=== PATIENT | female | born 1940 | race Caucasian/White ===

== ENCOUNTER 2017-10-11 13:56 | Emergency (ER) | payer MEDICARE, BC ==
[2017-10-11] MEDS ORDERED: Ketorolac 30 MG/ML SDV IM ONE (14:30)
--- NOTE | 2017-10-11 14:30 | EDM.PDOC ---
ED HPI GENERAL MEDICAL PROBLEM - General Chief Complaint: Back Pain or Injury Stated Complaint: R SIDE SCIATIC PAIN Time Seen by Provider: 10/11/17 14:30 Source of Information: Reports: Patient - History of Present Illness INITIAL COMMENTS - FREE TEXT/NARRATIVE: HISTORY AND PHYSICAL: History of present illness: [ Patient has a history of sciatic distribution pain follow-up followed by Dr. Hopkins, pain has been present for as long as she can remember She generally treats with Tylenol and ibuprofen however this is not working at this time she rates pain 6 out of 10 low back radiating to the right buttock Dr. Singletary has sent her to neurology in [place] who is scheduled her for an epidural steroid injection her last MRI was within the last 3 months as well as plain film x-ray since then There is been no injury or trauma since she is just failing [id number] symptomatic therapies No fever nausea vomiting chills sweats no foot drop saddle anesthesia or bowel or urine symptoms] Review of systems: As per history of present illness and below otherwise all systems reviewed and negative. Past medical history: As per history of present illness and as reviewed below otherwise noncontributory. Surgical history: As per history of present illness and as reviewed below otherwise noncontributory. Social history: No reported history of drug or alcohol abuse. Family history: As per history of present illness and as reviewed below otherwise noncontributory. Physical exam: HEENT: Atraumatic, normocephalic, pupils reactive, negative for conjunctival pallor or scleral icterus, mucous membranes moist, throat clear, neck supple, nontender, trachea midline. Lungs: Clear to auscultation, breath sounds equal bilaterally, chest nontender. Heart: S1S2, regular, negative for clicks, rubs, or JVD. Abdomen: Soft, nondistended, nontender. Negative for masses or hepatosplenomegaly. Negative for costovertebral tenderness. Pelvis: Stable nontender. Genitourinary: Deferred. Rectal: Deferred. Extremities: Atraumatic, negative for cords or calf pain. Neurovascular unremarkable. Neuro: Awake, alert, oriented. Cranial nerves II through XII unremarkable. Cerebellum unremarkable. Motor and sensory unremarkable throughout. Exam nonfocal. No footdrop or saddle anesthesia Diagnostics: [Recent MRI and plain film imaging ] Therapeutics: [Toradol 30 IM Tramadol 50 mg by mouth 3 times a day when necessary #30 no refill ] Impression: [Sciatic distribution pain on right ]Scheduled for epidural steroid injection within one week in [place] Definitive disposition and diagnosis as appropriate pending reevaluation and review of above. Right Lower Back Pain Score (Numeric/FACES): 10 - Related Data Allergies Allergy/AdvReac Type Severity Reaction Status Date / Time codeine Allergy Hallucinati Verified 10/11/17 14:12 ons influenza virus vaccine, Allergy Syncope Verified 10/11/17 14:12 specific [Influenza Virus Vacc,Specific] Home Meds: Home Meds Albuterol Sulfate [Albuterol Sulfate HFA] 18 gm IH QID 01/01/14 [History] Carbidopa/Levodopa [Carbidopa-Levo ER 25-100] 1 each PO 01/01/14 [History] Lactobacillus Acidophilus [Probiotic] 1 tab PO DAILY 01/01/14 [History] Naproxen [Naprosyn] 125 mg PO DAILY 01/01/14 [History] Omeprazole 10 mg PO DAILY 01/01/14 [History] Verapamil [Verapamil SR (24 Hr)] 120 mg PO DAILY 01/01/14 [History] atorvaSTATin [Lipitor] 20 mg PO DAILY 01/01/14 [History] Past Medical History Cardiovascular History: Reports: High Cholesterol, Hypertension Respiratory History: Reports: Asthma Neurological History: Reports: Other (See Below) Other Neuro History: restless leg syndrome - Infectious Disease History Infectious Disease History: Reports: Chicken Pox, Measles, Mumps - Past Surgical History Female Surgical History: Reports: Section, Hysterectomy Social & Family History - Family History Family Medical History: Noncontributory - Tobacco Use Smoking Status *Q: Never Smoker Second Hand Smoke Exposure: No - Recreational Drug Use Recreational Drug Use: No ED ROS GENERAL - Review of Systems Review Of Systems: ROS reveals no pertinent complaints other than HPI. ED EXAM, GENERAL - Physical Exam Exam: See Below Course - Vital Signs Last Recorded V/S: Last Vital Signs Temp 97.5 F 10/11/17 14:09 Pulse 104 H 10/11/17 14:09 Resp 18 10/11/17 14:09 BP 117/83 10/11/17 14:09 Pulse Ox 94 L 10/11/17 14:09 - Orders/Labs/Meds Orders: Active Orders 24 hr Category Date Time Status Lumbar Spine 2 or 3V [CR] Stat Exams 10/11/17 14:23 Stop Req Meds: Medications Discontinued Medications Generic Name Dose Route Start Last Admin Trade Name Kt PRN Reason Stop Dose Admin Ketorolac Tromethamine 30 mg 10/11/17 14:30 10/11/17 14:41 Toradol IM 10/11/17 14:31 30 mg ONETIME ONE Administration Departure - Departure Time of Disposition: 14:46 Disposition: Home, Self-Care 01 Condition: Good Clinical Impression: Low back pain - Discharge Information Referrals: London Singletary MD [Primary Care Provider] - Forms: ED Department Discharge Additional Instructions: Follow with Dr. Singletary as needed Follow-up with your appointment for steroid injection Return if symptoms persist or worsen The following information is given to patients seen in the emergency department who are being discharged to home. This information is to outline your options for follow-up care. We provide all patients seen in our emergency department with a follow-up referral. The need for follow-up, as well as the timing and circumstances, are variable depending upon the specifics of your emergency department visit. If you don't have a primary care physician on staff, we will provide you with a referral. We always advise you to contact your personal physician following an emergency department visit to inform them of the circumstance of the visit and for follow-up with them and/or the need for any referrals to a consulting specialist. The emergency department will also refer you to a specialist when appropriate. This referral assures that you have the opportunity for follow-up care with a specialist. All of these measure are taken in an effort to provide you with optimal care, which includes your follow-up. Under all circumstances we always encourage you to contact your private physician who remains a resource for coordinating your care. When calling for follow-up care, please make the office aware that this follow-up is from your recent emergency room visit. If for any reason you are refused follow-up, please contact the [facility] emergency department at and asked to speak to the emergency department charge nurse. - My Orders Last 24 Hours: My Active Orders 10/11/17 14:23 Lumbar Spine 2 or 3V [CR] Stat - Assessment/Plan Last 24 Hours: My Active Orders 10/11/17 14:23 Lumbar Spine 2 or 3V [CR] Stat
== END 2017-10-11 15:23 | disposition home or self-care (01) ==
LOC: MW.ED 13:56
DX: M54.41 Lumbago with sciatica, right side (principal); E78.00 Pure hypercholesterolemia, unspecified; I10 Essential (primary) hypertension; J45.909 Unspecified asthma, uncomplicated; Z88.5 Allergy status to narcotic agent; Z88.7 Allergy status to serum and vaccine; Z79.899 Other long term (current) drug therapy
CPT/HCPCS: 96372; 99283; J1885

== ENCOUNTER 2018-02-18 12:23 | Emergency (ER) | payer MEDICARE, BC ==
[2018-02-18] MEDS ORDERED: Ketorolac 60 MG/2 ML SDV IM ONE (13:14)
--- NOTE | 2018-02-18 13:25 | EDM.PDOC ---
ED HPI GENERAL MEDICAL PROBLEM - General Chief Complaint: Back Pain or Injury Stated Complaint: PAIN Time Seen by Provider: 02/18/18 13:00 Source of Information: Reports: Patient History Limitations: Reports: No Limitations - History of Present Illness INITIAL COMMENTS - FREE TEXT/NARRATIVE: HISTORY AND PHYSICAL: History of present illness: [Presents to the ER w/ her granddaughter with complaints of R low back pain. This is a chronic complaint for her and she follows regularly w/ PCP regarding this complaint. She is prescribed tramadol by her PCP to take twice a day for her back pain. This has not been giving her enough relief and she has been taking it several times throughout the day. She is scheduled to run out of her medication before she can follow-up with PCP on Wednesday. She follows regularly with a back specialist in [place] and is hoping to have surgery to her lumbar spine in March. No recent MRIs studies have been completed. She had been following with a specialist who was going to do surgery in February but he recently moved away. Patient has no change in her pain as far as severity or location her main concern is that she will run out of medication. Tylenol and ibuprofen aren't effective.] Review of systems: As per history of present illness and below otherwise all systems reviewed and negative. Past medical history: As per history of present illness and as reviewed below otherwise noncontributory. Surgical history: As per history of present illness and as reviewed below otherwise noncontributory. Social history: No reported history of drug or alcohol abuse. Family history: As per history of present illness and as reviewed below otherwise noncontributory. Physical exam: Gen.: Well-developed well-nourished elderly female in no acute distress. Presents with her granddaughter. Appears to be a good historian. HEENT: Atraumatic, normocephalic. Lungs: Clear to auscultation. Heart: S1S2, regular. Abdomen: Soft, nondistended, nontender. Negative for masses or hepatosplenomegaly. Negative for costovertebral tenderness. Pelvis: Stable nontender. Genitourinary: Deferred. Rectal: Deferred. Back: Normal in appearance. She is tender over her right SI joint. No spinal tenderness with palpation and no step-offs. Extremities: Atraumatic, all range of motion to all extremities. Neurovascular unremarkable. Neuro: Awake, alert, oriented. Exam nonfocal. Therapeutics: [Toradol 60mg IM] Impression: [low back pain] Plan: [Rx written for tramadol 50 mg #20 sig one by mouth by mouth every 4-6 hours as needed for pain 0 refills. Toradol 60mg given IM in the ER. Follow-up with PCP on Wednesday as scheduled. Strict return precautions are reviewed with patient. She is in agreement with today's plan.] Definitive disposition and diagnosis as appropriate pending reevaluation and review of above. - Related Data Allergies Allergy/AdvReac Type Severity Reaction Status Date / Time codeine Allergy Hallucinati Verified 10/11/17 14:12 ons influenza virus vaccine, Allergy Syncope Verified 10/11/17 14:12 specific [Influenza Virus Vacc,Specific] Home Meds: Home Meds Carbidopa/Levodopa [Carbidopa-Levo ER 25-100] 1 tab PO DAILY 01/01/14 [History] Past Medical History Cardiovascular History: Reports: High Cholesterol, Hypertension Respiratory History: Reports: Asthma Neurological History: Reports: Other (See Below) Other Neuro History: restless leg syndrome Dermatologic History: Reports: Other (See Below) Other Dermatologic History: skin cancer nose - Infectious Disease History Infectious Disease History: Reports: Chicken Pox, Measles, Mumps - Past Surgical History Female Surgical History: Reports: Section, Hysterectomy Social & Family History - Family History Family Medical History: Noncontributory - Tobacco Use Smoking Status *Q: Never Smoker - Caffeine Use Caffeine Use: Reports: Soda - Recreational Drug Use Recreational Drug Use: No ED ROS GENERAL - Review of Systems Review Of Systems: ROS reveals no pertinent complaints other than HPI. ED EXAM,LOWER BACK PAIN/INJURY - Physical Exam Exam: See Below Course - Vital Signs Last Recorded V/S: Last Vital Signs Temp 96.9 F 02/18/18 12:54 Pulse 90 02/18/18 12:54 Resp 18 02/18/18 12:54 BP 131/74 02/18/18 12:54 Pulse Ox 95 02/18/18 12:54 - Orders/Labs/Meds Meds: Medications Discontinued Medications Generic Name Dose Route Start Last Admin Trade Name Freq PRN Reason Stop Dose Admin Ketorolac Tromethamine 60 mg 02/18/18 13:14 02/18/18 13:40 Toradol IM 02/18/18 13:15 60 mg ONETIME ONE Administration Departure - Departure Time of Disposition: 13:20 Disposition: Home, Self-Care 01 Condition: Good Clinical Impression: Low back pain - Discharge Information Instructions: Back Pain, Adult, [id number] Referrals: London Singletary MD [Primary Care Provider] - Forms: ED Department Discharge Additional Instructions: The following information is given to patients seen in the emergency department who are being discharged to home. This information is to outline your options for follow-up care. We provide all patients seen in our emergency department with a follow-up referral. The need for follow-up, as well as the timing and circumstances, are variable depending upon the specifics of your emergency department visit. If you don't have a primary care physician on staff, we will provide you with a referral. We always advise you to contact your personal physician following an emergency department visit to inform them of the circumstance of the visit and for follow-up with them and/or the need for any referrals to a consulting specialist. The emergency department will also refer you to a specialist when appropriate. This referral assures that you have the opportunity for follow-up care with a specialist. All of these measure are taken in an effort to provide you with optimal care, which includes your follow-up. Under all circumstances we always encourage you to contact your private physician who remains a resource for coordinating your care. When calling for follow-up care, please make the office aware that this follow-up is from your recent emergency room visit. If for any reason you are refused follow-up, please contact the [facility] emergency department at and asked to speak to the emergency department charge nurse. [address] [address] Follow-up with your local primary care provider on Wednesday that you have scheduled. Take medication as prescribed. Return to ER as needed as discussed.
== END 2018-02-18 14:00 | disposition home or self-care (01) ==
LOC: MW.ED 12:23
DX: M54.5 Low back pain (principal); E78.00 Pure hypercholesterolemia, unspecified; I10 Essential (primary) hypertension; J45.909 Unspecified asthma, uncomplicated; Z88.5 Allergy status to narcotic agent; Z88.7 Allergy status to serum and vaccine
CPT/HCPCS: 96372; 99283; J1885

== ENCOUNTER 2018-02-21 17:35 | Observation (INO) | payer OTHER, MEDICARE, BC ==
[2018-02-21] MEDS ORDERED: Sodium Chloride 0.9% 1,000 ML IV SCH (18:00)
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
[2018-02-21 19:37] LABS: CHLORIDE,CL 108 mmol/L (98-107); SODIUM,NA 141 mmol/L (136-145)
[2018-02-21] MEDS ORDERED: Morphine 2 MG/ML Syringe IVPUSH ONE (23:12)
[2018-02-21] MEDS ORDERED: Morphine 2 MG/ML Syringe ONE (23:13)
[2018-02-22] MEDS ORDERED: diphenhydrAMINE 50 MG/ML SDV IVPUSH PRN (00:10)
[2018-02-22] MEDS ORDERED: Sodium Chloride 0.9% 10 ML Syringe FLUSH PRN (00:10)
[2018-02-22] MEDS ORDERED: Sodium Chloride 0.9% 2.5 ML Syringe FLUSH PRN (00:10)
[2018-02-22] MEDS ORDERED: HYDROmorphone 2 MG/ML SDV IVPUSH PRN (00:10)
[2018-02-22] MEDS ORDERED: Acetaminophen 325 MG Tab PO PRN (00:10)
[2018-02-22] MEDS ORDERED: Cyclobenzaprine 5 MG Tab PO PRN (00:17)
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
[2018-02-22] MEDS ORDERED: Carbidopa/Levodopa 25-100 MG Tab PO ONE (00:36)
[2018-02-22] MEDS: Magnesium Chloride 64 MG Tab.ER PO SCH ×2 (00:56→08:27)
[2018-02-22] MEDS: Sodium Chloride 0.9% 1,000 ML IV SCH ×2 (01:02→11:31)
[2018-02-22] MEDS: Ciprofloxacin 500 MG Tab PO SCH ×3 (01:11→20:49)
[2018-02-22] MEDS: Ondansetron 4 MG/2 ML SDV IVPUSH PRN (01:15)
[2018-02-22] MEDS: oxyCODONE 5 MG Tab PO PRN ×4 (04:35→20:50)
[2018-02-22] MEDS ORDERED: HYDROmorphone 1 MG/ML Syringe IVPUSH PRN (07:30)
[2018-02-22] MEDS: Omeprazole 20 MG Cap.CR PO SCH (08:28)
[2018-02-22] MEDS ORDERED: Ciprofloxacin 500 MG Tab PO SCH (09:00)
[2018-02-22] MEDS ORDERED: Bacitracin Oint 1 GM U/D Packet TOP ONE (09:32)
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
[2018-02-22] MEDS: Carbidopa/Levodopa 25-100 MG Tab PO SCH ×2 (14:54→20:50)
[2018-02-22] MEDS ORDERED: oxyCODONE 5 MG Tab PO ONE (22:14)
[2018-02-22] MEDS ORDERED: Magnesium Chloride 64 MG Tab.ER PO SCH (22:30)
[2018-02-23] MEDS: oxyCODONE 5 MG Tab PO PRN (02:59)
[2018-02-23] MEDS: Sodium Chloride 0.9% 1,000 ML IV SCH (04:55)
[2018-02-23] MEDS: Ondansetron 4 MG/2 ML SDV IVPUSH PRN (04:59)
[2018-02-23] MEDS: Omeprazole 20 MG Cap.CR PO SCH (06:30)
[2018-02-23] MEDS ORDERED: Ketorolac 10 MG Tab PO PRN (07:48)
[2018-02-23] MEDS ORDERED: oxyCODONE 5 MG Tab PO PRN (08:11)
[2018-02-23] MEDS ORDERED: Morphine 2 MG/ML Syringe IVPUSH PRN (08:13)
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
[2018-02-23] MEDS ORDERED: Cyclobenzaprine 5 MG Tab PO SCH ×2 (09:00→14:00)
[2018-02-23] MEDS ORDERED: Bisacodyl 5 MG Tab PO SCH (09:00)
[2018-02-23] MEDS: Ciprofloxacin 500 MG Tab PO SCH (10:13)
[2018-02-23] MEDS ORDERED: Acetaminophen 325 MG Tab PO SCH (14:00)
[2018-02-23] MEDS ORDERED: Ketorolac 10 MG Tab PO SCH (14:00)
--- NOTE | 2018-02-23 17:22 | PCM.SN ---
- Free Text/Narrative Note: Patient had severe neck pain and muscles spasms this morning. She was started on scheduled flexeril, tylenol, and toradol. Her oxycodone dose was increased to 10mg q 4hr. She slept this afternoon and is feeling much better. She continues to have paraspinal tenderness but it is far less than it was this morning. She c/o trouble turning her head side to side. She denies paresthesias in her upper extremities or numbness. She has had no loss of motor function. Her vital signs are stable tonight. On physical exam there is no tenderness along the midline. She has paravertebral tenderness with palpation that is much improved from her exam this morning. Her musculature does not feel like it is in spasm. She can flex and extend without limitation or pain. With rotation of her head side to side she has tenderness and can turn to ~45 degrees on each side but it is painful. She has no neurologic defecitis. Sensation is equal bilaterally. She has no gross deficits in her gross and fine motor function of bilateral upper extremities. She had a cervical spine XR on admission. This was normal. Given her ongoing pain and limitation of rotation of the head, I am ordering a stat CT of the cervical spine to rule out any other injuries. She has no neurologic defecits at this time. Will follow up on these results to determine if she can go home tonight or not.
[2018-02-23] MEDS: Carbidopa/Levodopa 25-100 MG Tab PO SCH (17:26)
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
[2018-02-23] MEDS ORDERED: Magnesium Oxide 400 MG Tab PO SCH (20:00)
--- NOTE | 2018-02-24 07:58 | CT ---
EXAM DATE: 02/21/18 PATIENT'S AGE: 77 Patient: DAVE SLAUGHTER Facility: [place], [place] Site . Site : 1940 Study: CT Spine Cervical [id number]/13/2018 5:27:48 PM Ordering Physician: Stefania Clemente Final Report: Indication: Neck pain. Trauma Technique: Noncontrast axial CT of the cervical spine with coronal and sagittal reformats are provided. No comparisons. Findings: The overall stature, alignment of the cervical spine is within normal limits. No convincing evidence of suspicious bony fragments narrowing the central canal or neural foramina. Prevertebral soft tissues, cervical airway, dens and lateral masses are within normal limits. [id number] scattered degenerative changes of the cervical spine. Impression: 1. No convincing radiographic evidence of acute osseous injury. 2. [id number] scattered degenerative changes of the cervical spine. Dictated by Jordon Olmstead MD @ 02/23/2018 5:33:08 PM Please note that all CT scans at this facility use dose modulation, iterative reconstruction, and/or weight-based dosing when appropriate to reduce radiation dose to as low as reasonably achievable. Dictated by: Jordon Olmstead MD @ 02/23/2018 17:33:15 (Electronic Signature) Report Signed by Proxy. [facility] HEALTHDavid
== END 2018-02-23 19:45 | disposition home or self-care (01) ==
LOC: MW.ED 17:35 → MW.MS 18:00
PROVIDERS: ADMIT Surgery; ATTEND Surgery
DX: E27.9 Disorder of adrenal gland, unspecified (principal); S22.20XA Unspecified fracture of sternum, initial encounter for closed fracture; R74.8 Abnormal levels of other serum enzymes; M54.5 Low back pain; M54.2 Cervicalgia; M62.838 Other muscle spasm; I10 Essential (primary) hypertension; G25.81 Restless legs syndrome; E78.00 Pure hypercholesterolemia, unspecified; J45.909 Unspecified asthma, uncomplicated; Z79.899 Other long term (current) drug therapy; Z88.5 Allergy status to narcotic agent; Z88.7 Allergy status to serum and vaccine; V29.60XA Unspecified motorcycle rider injured in collision with unspecified motor vehicles in traffic accident, initial encounter; W22.10XA Striking against or struck by unspecified automobile airbag, initial encounter
CPT/HCPCS: 36415; 71046; 71250; 72040; 72125; 72170; 73090; 73590; 74018; 74176; 80048; 80053; 81001; 82150; 83690; 84484; 85018; 85025; 85027; 85610; 86850; 86870; 86900; 86901; 93005; 96361; 96374; 97161; 99285; A9270; G0390; J2270; J2405; J7040; 96375; 96376; 99284; G0378

== ENCOUNTER 2019-03-24 21:08 | Emergency (ER) | payer MEDICARE, BC ==
--- NOTE | 2019-03-24 21:43 | EDM.PDOC ---
ED HPI GENERAL MEDICAL PROBLEM - General Chief Complaint: Skin Complaint Stated Complaint: BUMP ON ARM Time Seen by Provider: 03/24/19 21:22 Source of Information: Reports: Patient History Limitations: Reports: No Limitations - History of Present Illness INITIAL COMMENTS - FREE TEXT/NARRATIVE: HISTORY AND PHYSICAL: History of present illness: Patient is a 78-year-old female who presents to the emergency room with a "bump " on her left arm. She states while getting ready for bed she had taken her blouse off and had noticed a raised bump to the left arm and was concerned it may have been an imbedded tick as it was dark in color. She does not recall hitting her injuring her arm. Patient denies any fever, chills, headache, change in vision, syncope or near syncope. Denies any chest pain, back pain, shortness of breath or cough. Denies any abdominal pain, nausea, vomiting, diarrhea, constipation or dysuria. Has not noted any blood in urine or stool. Patient has been eating and drinking appropriately. Review of systems: As per history of present illness and below otherwise all systems reviewed and negative. Past medical history: As per history of present illness and as reviewed below otherwise noncontributory. Surgical history: As per history of present illness and as reviewed below otherwise noncontributory. Social history: See social history for further information Family history: As per history of present illness and as reviewed below otherwise noncontributory. Physical exam: General: Well-developed and well-nourished 78-year-old female. Alert and oriented. Nontoxic appearing and in no acute distress. HEENT: Atraumatic, normocephalic, pupils equal and reactive bilaterally, negative for conjunctival pallor or scleral icterus, mucous membranes moist, trachea midline. No drooling or trismus noted. No meningeal signs. No hot potato voice noted. Lungs: Clear to auscultation, breath sounds equal bilaterally, chest nontender. Heart: S1S2, regular rate and rhythm without overt murmur Abdomen: Soft, nondistended, nontender. Skin: Sporadic small bruises noted to her hands and bilateral arms, various healing stages. Otherwise skin is intact, warm, dry. No lesions or rashes noted. Extremities: Atraumatic, moves all extremities per self without difficulty or deficits, negative for cords or calf pain. Neurovascular unremarkable. Neuro: Awake, alert, oriented. Cranial nerves II through XII unremarkable. Cerebellum unremarkable. Motor and sensory unremarkable throughout. Exam nonfocal. Notes: The area in question is a bruise above the left elbow. Did reassure the patient that there is no tick embedded in her skin. With reassurance she feels better. Supportive care measures were reviewed and discussed. Voices understanding and is agreeable to plan of care. Denies any further questions or concerns at this time. Diagnostics: None Therapeutics: None Prescription: None Impression: Bruise, left arm Plan: 1. Please follow up with your primary care provider 2. Return to the ED as needed and as discussed. Definitive disposition and diagnosis as appropriate pending reevaluation and review of above. denies pain Pain Score (Numeric/FACES): 0 - Related Data Allergies Allergy/AdvReac Type Severity Reaction Status Date / Time codeine Allergy Hallucinati Verified 03/24/19 21:43 ons influenza virus vaccine, Allergy Syncope Verified 03/24/19 21:43 specific [Influenza Virus Vacc,Specific] Home Meds: Home Meds Magnesium 400 mg PO BEDTIME 02/22/18 [History] Verapamil HCl [Verapamil Sr] 120 mg PO DAILY PRN 02/22/18 [History] Acetaminophen [Tylenol] 650 mg PO Q6H #30 tablet 02/23/18 [Rx] Bisacodyl [Dulcolax] 5 mg PO DAILY PRN #14 tablet 02/23/18 [Rx] Lactobacillus Acidophilus [Acidophilus Lactobacilli] 1 cap PO DAILY 02/23/18 [ History] Past Medical History Cardiovascular History: Reports: High Cholesterol, Hypertension Respiratory History: Reports: Asthma Musculoskeletal History: Reports: Other (See Below) Other Musculoskeletal History: sciatica Neurological History: Reports: Other (See Below) Other Neuro History: restless leg syndrome Dermatologic History: Reports: Other (See Below) Other Dermatologic History: skin cancer nose - Infectious Disease History Infectious Disease History: Reports: Chicken Pox, Measles, Mumps - Past Surgical History HEENT Surgical History: Reports: Other (See Below) Female Surgical History: Reports: Section, Hysterectomy Social & Family History - Family History Family Medical History: Noncontributory - Caffeine Use Caffeine Use: Reports: Soda ED ROS GENERAL - Review of Systems Review Of Systems: ROS reveals no pertinent complaints other than HPI. ED EXAM, SKIN/RASH Exam: See Below (See dictation) Course - Vital Signs Last Recorded V/S: Last Vital Signs Temp 97.6 F 03/24/19 21:43 Pulse 90 03/24/19 21:43 Resp 18 03/24/19 21:43 BP 123/78 03/24/19 21:43 Pulse Ox 95 03/24/19 21:43 Departure - Departure Time of Disposition: 21:48 Disposition: Home, Self-Care 01 Clinical Impression: Arm bruise Qualifiers: Encounter type: initial encounter Laterality: left Qualified Code(s): S40.022A - Contusion of left upper arm, initial encounter - Discharge Information Instructions: Contusion, [id number] Referrals: London Singletary MD [Primary Care Provider] - Forms: ED Department Discharge Additional Instructions: The following information is given to patients seen in the emergency department who are being discharged to home. This information is to outline your options for follow-up care. We provide all patients seen in our emergency department with a follow-up referral. The need for follow-up, as well as the timing and circumstances, are variable depending upon the specifics of your emergency department visit. If you don't have a primary care physician on staff, we will provide you with a referral. We always advise you to contact your personal physician following an emergency department visit to inform them of the circumstance of the visit and for follow-up with them and/or the need for any referrals to a consulting specialist. The emergency department will also refer you to a specialist when appropriate. This referral assures that you have the opportunity for follow-up care with a specialist. All of these measure are taken in an effort to provide you with optimal care, which includes your follow-up. Under all circumstances we always encourage you to contact your private physician who remains a resource for coordinating your care. When calling for follow-up care, please make the office aware that this follow-up is from your recent emergency room visit. If for any reason you are refused follow-up, please contact the [facility] Emergency Department at and asked to speak to the emergency department charge nurse. [facility] Primary Care [address] [place] [id number] [facility] [address] [place] [address] 1. Please follow up with your primary care provider 2. Return to the ED as needed and as discussed.
== END 2019-03-24 22:00 | disposition home or self-care (01) ==
LOC: MW.ED 21:08
DX: S40.022A Contusion of left upper arm, initial encounter (principal); I10 Essential (primary) hypertension; Z88.5 Allergy status to narcotic agent; Z88.7 Allergy status to serum and vaccine; Z79.899 Other long term (current) drug therapy; Z90.710 Acquired absence of both cervix and uterus; X58.XXXA Exposure to other specified factors, initial encounter
CPT/HCPCS: 99282; 99283

== ENCOUNTER 2019-06-21 09:28 | Emergency (ER) | payer MEDICARE, BC ==
[2019-06-21] MEDS ORDERED: Sodium Chloride 0.9% 10 ML Syringe FLUSH PRN (09:43)
[2019-06-21] MEDS ORDERED: Sodium Chloride 0.9% 2.5 ML Syringe FLUSH PRN (09:43)
[2019-06-21] MEDS ORDERED: Sodium Chloride 0.9% 500 ML IV ONE (09:43)
--- NOTE | 2019-06-21 09:44 | EDM.PDOC ---
ED HPI GENERAL MEDICAL PROBLEM - General Chief Complaint: General Stated Complaint: TRAUMA ALERT Time Seen by Provider: 06/21/19 09:36 Source of Information: Reports: Patient History Limitations: Reports: No Limitations - History of Present Illness INITIAL COMMENTS - FREE TEXT/NARRATIVE: History of present illness: []Patient got up and went to the bathroom and fell landing on her left shoulder. Brief loss of consciousness according to her who brought her in for evaluation. She arrived Awake and alert with complaint of right shoulder pain. Review of systems: As per history of present illness and below otherwise all systems reviewed and negative. Past medical history: As per history of present illness and as reviewed below otherwise noncontributory. Surgical history: As per history of present illness and as reviewed below otherwise noncontributory. Social history: No reported history of drug or alcohol abuse. Family history: As per history of present illness and as reviewed below otherwise noncontributory. Physical exam: General: Well developed, well nourished in NAD HEENT: Atraumatic, normocephalic, pupils reactive, negative for conjunctival pallor or scleral icterus, mucous membranes moist, throat clear, neck supple, nontender, trachea midline. Lungs: Clear to auscultation, breath sounds equal bilaterally, chest nontender. Heart: S1S2, regular, negative for clicks, rubs, or JVD. Abdomen: NABS, Soft, nondistended, nontender. Negative for masses or hepatosplenomegaly. Negative for costovertebral tenderness. Pelvis: Stable nontender. Genitourinary: Deferred. Rectal: Deferred. Extremities: tender left anterior shoulder, no deformity or limitation of movement, negative for cords or calf pain. Neurovascular unremarkable. Neuro: Awake, alert, oriented. Cranial nerves II through XII unremarkable. Cerebellum unremarkable. Motor and sensory unremarkable throughout. Exam nonfocal. Skin:warm and dry Diagnostics: CBC, chemistry, UA, right shoulder x-ray Therapeutics: toradol, ivf ED Course: stable Impression: uti, left shoulder contusion, vaso vagal response Prescriptions: nitrofurantoin Plan: Take meds as directed, follow up with your primary care physician, return to ER if symptoms worsen or change. Definitive disposition and diagnosis as appropriate pending reevaluation and review of above. Left Shoulder Pain Score (Numeric/FACES): 6 - Related Data Allergies Allergy/AdvReac Type Severity Reaction Status Date / Time codeine Allergy Hallucinati Verified 03/24/19 21:43 ons influenza virus vaccine, Allergy Syncope Verified 03/24/19 21:43 specific [Influenza Virus Vacc,Specific] Home Meds: Home Meds Magnesium 500 mg PO BEDTIME 02/22/18 [History] Verapamil HCl [Verapamil Sr] 120 mg PO DAILY PRN 02/22/18 [History] Carbidopa 25 mg PO ASDIRECTED 06/21/19 [History] Nitrofurantoin Macrocrystal [Macrodantin] 100 mg PO BID #14 capsule 06/21/19 [Rx ] Past Medical History HEENT History: Reports: None Cardiovascular History: Reports: High Cholesterol, Hypertension Respiratory History: Reports: Asthma Gastrointestinal History: Reports: None Genitourinary History: Reports: None [employer] History: Reports: Musculoskeletal History: Reports: Other (See Below) Other Musculoskeletal History: sciatica Neurological History: Reports: Other (See Below) Other Neuro History: restless leg syndrome Psychiatric History: Reports: None Endocrine/Metabolic History: Reports: None Hematologic History: Reports: None Immunologic History: Reports: None Oncologic (Cancer) History: Reports: None Dermatologic History: Reports: Other (See Below) Other Dermatologic History: skin cancer nose - Infectious Disease History Infectious Disease History: Reports: Chicken Pox, Measles, Mumps - Past Surgical History HEENT Surgical History: Reports: Other (See Below) Female Surgical History: Reports: Section, Hysterectomy Social & Family History - Family History Family Medical History: Noncontributory - Caffeine Use Caffeine Use: Reports: Soda ED ROS GENERAL - Review of Systems Review Of Systems: See Below ED EXAM, GENERAL - Physical Exam Exam: See Below Course - Vital Signs Last Recorded V/S: Last Vital Signs Temp 96.8 F 06/21/19 09:49 Pulse 85 06/21/19 09:49 Resp 18 06/21/19 09:49 BP 93/58 L 06/21/19 09:49 Pulse Ox 96 06/21/19 09:49 - Orders/Labs/Meds Orders: Active Orders 24 hr Category Date Time Status Blood Glucose Check, Bedside [RC] ONETIME Care 06/21/19 09:37 Active CULTURE URINE [RM] Routine Lab 06/21/19 10:45 Received Sodium Chloride 0.9% [Saline Flush] Med 06/21/19 09:43 Active 10 ml FLUSH ASDIRECTED PRN Sodium Chloride 0.9% [Saline Flush] Med 06/21/19 09:43 Active 2.5 ml FLUSH ASDIRECTED PRN Saline Lock Insert [OM.PC] Stat Oth 06/21/19 09:43 Ordered Medication Orders Sodium Chloride (Saline Flush) 10 ml FLUSH ASDIRECTED PRN PRN Reason: Keep Vein Open Last Admin: 06/21/19 10:08 Dose: 10 ml Sodium Chloride (Saline Flush) 2.5 ml FLUSH ASDIRECTED PRN PRN Reason: Keep Vein Open Last Admin: 06/21/19 10:08 Dose: 2.5 ml Labs: Laboratory Tests 06/21/19 06/21/19 06/21/19 Range/Units 10:04 10:05 10:05 WBC 5.39 (4.0-11.0) K/uL RBC 3.93 L (4.30-5.90) M/uL Hgb 11.9 L (12.0-16.0) g/dL Hct 37.2 (36.0-46.0) % MCV 94.7 (80.0-98.0) fL MCH 30.3 (27.0-32.0) pg MCHC 32.0 (31.0-37.0) g/dL RDW Std Deviation 47.1 (28.0-62.0) fl RDW Coeff of Bebeto 14 (11.0-15.0) % Plt Count 122 L (150-400) K/uL MPV 9.00 (7.40-12.00) fL Neut % (Auto) 75.7 (48.0-80.0) % Lymph % (Auto) 17.1 (16.0-40.0) % [place] % (Auto) 6.1 (0.0-15.0) % Eos % (Auto) 0.9 (0.0-7.0) % Baso % (Auto) 0.2 (0.0-1.5) % Neut # (Auto) 4.1 (1.4-5.7) K/uL Lymph # (Auto) 0.9 (0.6-2.4) K/uL [place] # (Auto) 0.3 (0.0-0.8) K/uL Eos # (Auto) 0.1 (0.0-0.7) K/uL Baso # (Auto) 0.0 (0.0-0.1) K/uL Nucleated RBC % 0.0 /100WBC Nucleated RBCs # 0 K/uL Sodium 144 (136-145) mmol/L Potassium 4.3 (3.5-5.1) mmol/L Chloride 110 H (98-107) mmol/L Carbon Dioxide 24.0 (21.0-32.0) mmol/L BUN 26 H (7.0-18.0) mg/dL Creatinine 1.2 H (0.6-1.0) mg/dL Est Cr Clr Drug Dosing TNP Estimated GFR (MDRD) 43.3 ml/min Glucose 140 H (74-106) mg/dL POC Glucose 134 H (60-110) mg/dL Calcium 8.8 (8.5-10.1) mg/dL Total Bilirubin 0.3 (0.2-1.0) mg/dL AST 19 (15-37) IU/L ALT 18 (14-63) IU/L Alkaline Phosphatase 84 (46-116) U/L Total Protein 6.5 (6.4-8.2) g/dL Albumin 3.4 (3.4-5.0) g/dL Globulin 3.1 (2.6-4.0) g/dL Albumin/Globulin Ratio 1.1 (0.9-1.6) Urine Color Urine Appearance Urine pH (5.0-8.0) Ur Specific [place] (1.001-1.035) Urine Protein (NEGATIVE) mg/dL Urine Glucose (UA) (NEGATIVE) mg/dL Urine Ketones (NEGATIVE) mg/dL Urine Occult Blood (NEGATIVE) Urine Nitrite (NEGATIVE) Urine Bilirubin (NEGATIVE) Urine Urobilinogen (<2.0) EU/dL Ur Leukocyte Esterase (NEGATIVE) Urine RBC (0-2/HPF) Urine WBC (0-5/HPF) Ur Epithelial Cells (NONE-FEW) Urine Bacteria (NEGATIVE) 06/21/19 Range/Units 10:45 WBC (4.0-11.0) K/uL RBC (4.30-5.90) M/uL Hgb (12.0-16.0) g/dL Hct (36.0-46.0) % MCV (80.0-98.0) fL MCH (27.0-32.0) pg MCHC (31.0-37.0) g/dL RDW Std Deviation (28.0-62.0) fl RDW Coeff of Bebeto (11.0-15.0) % Plt Count (150-400) K/uL MPV (7.40-12.00) fL Neut % (Auto) (48.0-80.0) % Lymph % (Auto) (16.0-40.0) % [place] % (Auto) (0.0-15.0) % Eos % (Auto) (0.0-7.0) % Baso % (Auto) (0.0-1.5) % Neut # (Auto) (1.4-5.7) K/uL Lymph # (Auto) (0.6-2.4) K/uL [place] # (Auto) (0.0-0.8) K/uL Eos # (Auto) (0.0-0.7) K/uL Baso # (Auto) (0.0-0.1) K/uL Nucleated RBC % /100WBC Nucleated RBCs # K/uL Sodium (136-145) mmol/L Potassium (3.5-5.1) mmol/L Chloride (98-107) mmol/L Carbon Dioxide (21.0-32.0) mmol/L BUN (7.0-18.0) mg/dL Creatinine (0.6-1.0) mg/dL Est Cr Clr Drug Dosing Estimated GFR (MDRD) ml/min Glucose (74-106) mg/dL POC Glucose (60-110) mg/dL Calcium (8.5-10.1) mg/dL Total Bilirubin (0.2-1.0) mg/dL AST (15-37) IU/L ALT (14-63) IU/L Alkaline Phosphatase (46-116) U/L Total Protein (6.4-8.2) g/dL Albumin (3.4-5.0) g/dL Globulin (2.6-4.0) g/dL Albumin/Globulin Ratio (0.9-1.6) Urine Color YELLOW Urine Appearance SLT CLOUDY Urine pH 5.5 (5.0-8.0) Ur Specific [place] 1.020 (1.001-1.035) Urine Protein NEGATIVE (NEGATIVE) mg/dL Urine Glucose (UA) NEGATIVE (NEGATIVE) mg/dL Urine Ketones NEGATIVE (NEGATIVE) mg/dL Urine Occult Blood NEGATIVE (NEGATIVE) Urine Nitrite POSITIVE H (NEGATIVE) Urine Bilirubin NEGATIVE (NEGATIVE) Urine Urobilinogen 0.2 (<2.0) EU/dL Ur Leukocyte Esterase NEGATIVE (NEGATIVE) Urine RBC 0-1 (0-2/HPF) Urine WBC 2-4 (0-5/HPF) Ur Epithelial Cells OCCASIONAL (NONE-FEW) Urine Bacteria 1+ H (NEGATIVE) Meds: Medications Generic Name Dose Route Start Last Admin Trade Name Freq PRN Reason Stop Dose Admin Sodium Chloride 10 ml 06/21/19 09:43 06/21/19 10:08 Saline Flush FLUSH 10 ml ASDIRECTED PRN Administration Keep Vein Open Sodium Chloride 2.5 ml 06/21/19 09:43 06/21/19 10:08 Saline Flush FLUSH 2.5 ml ASDIRECTED PRN Administration Keep Vein Open Discontinued Medications Generic Name Dose Route Start Last Admin Trade Name Freq PRN Reason Stop Dose Admin Sodium Chloride 500 mls @ 999 mls/hr 06/21/19 09:43 06/21/19 10:08 Normal Saline IV 06/21/19 10:13 999 mls/hr .Bolus ONE Administration Ketorolac Tromethamine 15 mg 06/21/19 10:27 06/21/19 11:10 Toradol IVPUSH 06/21/19 10:28 15 mg ONETIME ONE Administration Departure - Departure Time of Disposition: 11:17 Disposition: Home, Self-Care 01 Condition: Good Clinical Impression: Vaso vagal episode UTI (urinary tract infection) Qualifiers: Urinary tract infection type: site unspecified Hematuria presence: without hematuria Qualified Code(s): N39.0 - Urinary tract infection, site not specified Contusion of left shoulder Qualifiers: Encounter type: initial encounter Qualified Code(s): S40.012A - Contusion of left shoulder, initial encounter - Discharge Information *PRESCRIPTION DRUG MONITORING PROGRAM REVIEWED*: No *COPY OF PRESCRIPTION DRUG MONITORING REPORT IN PATIENT AL: No Prescriptions: Nitrofurantoin Macrocrystal [Macrodantin] 100 mg PO BID #14 capsule Instructions: Urinary Tract Infection, Adult, [id number], Near-Syncope, Easy- to-Read, Syncope, [id number] Referrals: London Singletary MD [Primary Care Provider] - Forms: ED Department Discharge Additional Instructions: The following information is given to patients seen in the emergency department who are being discharged to home. This information is to outline your options for follow-up care. We provide all patients seen in our emergency department with a follow-up referral. The need for follow-up, as well as the timing and circumstances, are variable depending upon the specifics of your emergency department visit. If you don't have a primary care physician on staff, we will provide you with a referral. We always advise you to contact your personal physician following an emergency department visit to inform them of the circumstance of the visit and for follow-up with them and/or the need for any referrals to a consulting specialist. The emergency department will also refer you to a specialist when appropriate. This referral assures that you have the opportunity for follow-up care with a specialist. All of these measure are taken in an effort to provide you with optimal care, which includes your follow-up. Under all circumstances we always encourage you to contact your private physician who remains a resource for coordinating your care. When calling for follow-up care, please make the office aware that this follow-up is from your recent emergency room visit. If for any reason you are refused follow-up, please contact the [facility] Emergency Department at and asked to speak to the emergency department charge nurse. Take meds as directed, follow up with your primary care physician, return to ER if symptoms worsen or change. [facility] [address] [place] [id number] - My Orders Last 24 Hours: My Active Orders 06/21/19 09:37 Blood Glucose Check, Bedside [RC] ONETIME 06/21/19 09:43 Sodium Chloride 0.9% [Saline Flush] 10 ml FLUSH ASDIRECTED PRN Sodium Chloride 0.9% [Saline Flush] 2.5 ml FLUSH ASDIRECTED PRN Saline Lock Insert [OM.PC] Stat 06/21/19 10:45 CULTURE URINE [RM] Routine - Assessment/Plan Last 24 Hours: My Active Orders 06/21/19 09:37 Blood Glucose Check, Bedside [RC] ONETIME 06/21/19 09:43 Sodium Chloride 0.9% [Saline Flush] 10 ml FLUSH ASDIRECTED PRN Sodium Chloride 0.9% [Saline Flush] 2.5 ml FLUSH ASDIRECTED PRN Saline Lock Insert [OM.PC] Stat 06/21/19 10:45 CULTURE URINE [RM] Routine
[2019-06-21] MEDS ORDERED: Ketorolac 30 MG/ML SDV IVPUSH ONE (10:27)
[2019-06-21 10:56] LABS: BLOOD UREA NITROGEN,BUN 26 mg/dL (7.0-18.0); CHLORIDE,CL 110 mmol/L (98-107); GLUCOSE RANDOM 140 mg/dL (74-106); POTASSIUM,K 4.3 mmol/L (3.5-5.1); SODIUM,NA 144 mmol/L (136-145)
--- NOTE | 2019-06-21 11:09 | CR ---
Indication: Pain. Technique: Left shoulder 3 views. Comparison: None Findings: No acute fracture or dislocation. No significant degenerative change of the glenohumeral joint. Mild degenerative change of the acromioclavicular joint. Visualized left lung is clear. Soft tissues are unremarkable. Impression: No acute findings. Dictated by Mena Martinez MD @ Jun 21 2019 11:06AM Signed by Dr. Mena Martinez @ Jun 21 2019 11:08AM
== END 2019-06-21 11:31 | disposition home or self-care (01) ==
LOC: MW.ED 09:28
DX: S40.012A Contusion of left shoulder, initial encounter (principal); R55 Syncope and collapse; N39.0 Urinary tract infection, site not specified; I10 Essential (primary) hypertension; Z88.5 Allergy status to narcotic agent; Z88.7 Allergy status to serum and vaccine; W19.XXXA Unspecified fall, initial encounter; Y92.89 Other specified places as the place of occurrence of the external cause
CPT/HCPCS: 73030; 80053; 81001; 82962; 85025; 87086; 96361; 96374; 99283; J1885; J7040; 87088; 87186

== ENCOUNTER 2019-06-29 09:05 | Observation (INO) | payer MEDICARE, BC ==
--- NOTE | 2019-06-29 09:17 | EDM.PDOC ---
ED HPI GENERAL MEDICAL PROBLEM - General Stated Complaint: DIZZINESS Time Seen by Provider: 06/29/19 09:13 - History of Present Illness INITIAL COMMENTS - FREE TEXT/NARRATIVE: HISTORY AND PHYSICAL: History of present illness: Patient is a 78-year-old white female who presents with a concern of intermittent dizziness she denies dizziness on arrival she states she had an episode earlier this morning upon awakening to go to the bathroom she denies fever chills nausea vomiting chest pain or other concern she states she has similar episode approximately 1-2 weeks prior for which she was treated for urinary tract infection. Review of systems: As per history of present illness and below otherwise all systems reviewed and negative. Past medical history: As per history of present illness and as reviewed below otherwise noncontributory. Surgical history: As per history of present illness and as reviewed below otherwise noncontributory. Social history: No reported history of drug or alcohol abuse. Family history: As per history of present illness and as reviewed below otherwise noncontributory. Physical exam: HEENT: Atraumatic, normocephalic, pupils reactive, negative for conjunctival pallor or scleral icterus, mucous membranes moist, throat clear, neck supple, nontender, trachea midline. Lungs: Clear to auscultation, breath sounds equal bilaterally, chest nontender. Heart: S1S2, regular, negative for clicks, rubs, or JVD. Abdomen: Soft, nondistended, nontender. Negative for masses or hepatosplenomegaly. Negative for costovertebral tenderness. Pelvis: Stable nontender. Genitourinary: Deferred. Rectal: Deferred. Extremities: Atraumatic, negative for cords or calf pain. Neurovascular unremarkable. Neuro: Awake, alert, oriented. Cranial nerves II through XII unremarkable. Cerebellum unremarkable. Motor and sensory unremarkable throughout. Exam nonfocal. Diagnostics: CBC CMP troponin PT/INR chest x-ray EKG CT brain UA Therapeutics: IV O2 monitor Impression: #1 dizziness Definitive disposition and diagnosis as appropriate pending reevaluation and review of above. - Related Data Allergies Allergy/AdvReac Type Severity Reaction Status Date / Time codeine Allergy Hallucinati Verified 03/24/19 21:43 ons influenza virus vaccine, Allergy Syncope Verified 03/24/19 21:43 specific [Influenza Virus Vacc,Specific] Home Meds: Home Meds Magnesium 500 mg PO BEDTIME 02/22/18 [History] Verapamil HCl [Verapamil Sr] 120 mg PO DAILY PRN 02/22/18 [History] Carbidopa 25 mg PO ASDIRECTED 06/21/19 [History] Nitrofurantoin Macrocrystal [Macrodantin] 100 mg PO BID #14 capsule 06/21/19 [Rx ] Past Medical History HEENT History: Reports: None Cardiovascular History: Reports: High Cholesterol, Hypertension Respiratory History: Reports: Asthma Gastrointestinal History: Reports: None Genitourinary History: Reports: 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: Musculoskeletal History: Reports: Other (See Below) Other Musculoskeletal History: sciatica Neurological History: Reports: Other (See Below) Other Neuro History: restless leg syndrome Psychiatric History: Reports: None Endocrine/Metabolic History: Reports: None Hematologic History: Reports: None Immunologic History: Reports: None Oncologic (Cancer) History: Reports: None Dermatologic History: Reports: Other (See Below) Other Dermatologic History: skin cancer nose - Infectious Disease History Infectious Disease History: Reports: Chicken Pox, Measles, Mumps - Past Surgical History HEENT Surgical History: Reports: Other (See Below) Female Surgical History: Reports: Section, Hysterectomy Social & Family History - Family History Family Medical History: Noncontributory - Caffeine Use Caffeine Use: Reports: Soda ED ROS GENERAL - Review of Systems Review Of Systems: ROS reveals no pertinent complaints other than HPI. ED EXAM, GENERAL - Physical Exam Exam: See Below (See dictation) Course - Vital Signs Last Recorded V/S: Last Vital Signs Temp 35.7 C 06/29/19 09:32 Pulse 94 06/29/19 09:32 Resp 16 06/29/19 09:32 BP 118/74 06/29/19 09:32 Pulse Ox 96 06/29/19 09:32 - Orders/Labs/Meds Orders: Active Orders 24 hr Category Date Time Status Cardiac Monitoring [RC] . DIRECTED Care 06/29/19 09:17 Active EKG Documentation Completion [RC] STAT Care 06/29/19 09:18 Active Pulse Oximetry [RC] ASDIRECTED Care 06/29/19 09:18 Active CULTURE BLOOD [BC] Stat Lab 06/29/19 10:48 Ordered CULTURE BLOOD [BC] Stat Lab 06/29/19 10:48 Ordered CULTURE URINE [RM] Stat Lab 06/29/19 10:25 Received LACTIC ACID,WHOLE BLOOD [BG] Stat Lab 06/29/19 10:48 Ordered Sodium Chloride 0.9% [Normal Saline] 500 ml Med 06/29/19 09:30 Active IV STAT Sodium Chloride 0.9% [Saline Flush] Med 06/29/19 09:18 Active 10 ml FLUSH ASDIRECTED PRN Sodium Chloride 0.9% [Saline Flush] Med 06/29/19 09:18 Active 2.5 ml FLUSH ASDIRECTED PRN cefTRIAXone [Rocephin in Dextrose,Iso-Osm 1 GM/50 ML] 1 Med 06/29/19 10:48 Active gm Premix Bag 1 bag IV ONETIME Blood Culture x2 Reflex Set [OM.PC] Stat Oth 06/29/19 10:48 Ordered Saline Lock Insert [OM.PC] Stat Oth 06/29/19 09:17 Ordered Medication Orders Sodium Chloride (Normal Saline) 500 mls @ 999 mls/hr IV STAT VITALY Last Admin: 06/29/19 09:39 Dose: 999 mls/hr Ceftriaxone Sodium/Dextrose 1 (gm/ Premix) 50 mls @ 100 mls/hr IV ONETIME ONE Stop: 06/29/19 11:17 Sodium Chloride (Saline Flush) 10 ml FLUSH ASDIRECTED PRN PRN Reason: Keep Vein Open Sodium Chloride (Saline Flush) 2.5 ml FLUSH ASDIRECTED PRN PRN Reason: Keep Vein Open Labs: Laboratory Tests 06/29/19 06/29/19 06/29/19 Range/Units 09:13 09:13 09:13 WBC 3.91 L (4.0-11.0) K/uL RBC 3.88 L (4.30-5.90) M/uL Hgb 11.6 L (12.0-16.0) g/dL Hct 36.6 (36.0-46.0) % MCV 94.3 (80.0-98.0) fL MCH 29.9 (27.0-32.0) pg MCHC 31.7 (31.0-37.0) g/dL RDW Std Deviation 47.2 (28.0-62.0) fl RDW Coeff of [place] 14 (11.0-15.0) % Plt Count 132 L (150-400) K/uL MPV 8.70 (7.40-12.00) fL Neut % (Auto) 69.5 (48.0-80.0) % Lymph % (Auto) 22.8 (16.0-40.0) % [place] % (Auto) 6.4 (0.0-15.0) % Eos % (Auto) 1.0 (0.0-7.0) % Baso % (Auto) 0.3 (0.0-1.5) % Neut # (Auto) 2.7 (1.4-5.7) K/uL Lymph # (Auto) 0.9 (0.6-2.4) K/uL [place] # (Auto) 0.3 (0.0-0.8) K/uL Eos # (Auto) 0.0 (0.0-0.7) K/uL Baso # (Auto) 0.0 (0.0-0.1) K/uL Nucleated RBC % 0.0 /100WBC Nucleated RBCs # 0 K/uL INR 1.02 Sodium 140 (136-145) mmol/L Potassium 3.9 (3.5-5.1) mmol/L Chloride 105 (98-107) mmol/L Carbon Dioxide 25.4 (21.0-32.0) mmol/L BUN 24 H (7.0-18.0) mg/dL Creatinine 1.2 H (0.6-1.0) mg/dL Est Cr Clr Drug Dosing 30.91 mL/min Estimated GFR (MDRD) 43.3 ml/min Glucose 120 H (74-106) mg/dL Calcium 8.8 (8.5-10.1) mg/dL Total Bilirubin 0.2 (0.2-1.0) mg/dL AST 20 (15-37) IU/L ALT 12 L (14-63) IU/L Alkaline Phosphatase 82 (46-116) U/L Troponin I < 0.050 (0.000-0.056) ng/mL Total Protein 6.4 (6.4-8.2) g/dL Albumin 3.3 L (3.4-5.0) g/dL Globulin 3.1 (2.6-4.0) g/dL Albumin/Globulin Ratio 1.1 (0.9-1.6) Urine Color Urine Appearance Urine pH (5.0-8.0) Ur Specific [place] (1.001-1.035) Urine Protein (NEGATIVE) mg/dL Urine Glucose (UA) (NEGATIVE) mg/dL Urine Ketones (NEGATIVE) mg/dL Urine Occult Blood (NEGATIVE) Urine Nitrite (NEGATIVE) Urine Bilirubin (NEGATIVE) Urine Urobilinogen (<2.0) EU/dL Ur Leukocyte Esterase (NEGATIVE) Urine RBC (0-2/HPF) Urine WBC (0-5/HPF) Ur Epithelial Cells (NONE-FEW) Urine Bacteria (NEGATIVE) 06/29/19 Range/Units 10:25 WBC (4.0-11.0) K/uL RBC (4.30-5.90) M/uL Hgb (12.0-16.0) g/dL Hct (36.0-46.0) % MCV (80.0-98.0) fL MCH (27.0-32.0) pg MCHC (31.0-37.0) g/dL RDW Std Deviation (28.0-62.0) fl RDW Coeff of [place] (11.0-15.0) % Plt Count (150-400) K/uL MPV (7.40-12.00) fL Neut % (Auto) (48.0-80.0) % Lymph % (Auto) (16.0-40.0) % [place] % (Auto) (0.0-15.0) % Eos % (Auto) (0.0-7.0) % Baso % (Auto) (0.0-1.5) % Neut # (Auto) (1.4-5.7) K/uL Lymph # (Auto) (0.6-2.4) K/uL [place] # (Auto) (0.0-0.8) K/uL Eos # (Auto) (0.0-0.7) K/uL Baso # (Auto) (0.0-0.1) K/uL Nucleated RBC % /100WBC Nucleated RBCs # K/uL INR Sodium (136-145) mmol/L Potassium (3.5-5.1) mmol/L Chloride (98-107) mmol/L Carbon Dioxide (21.0-32.0) mmol/L BUN (7.0-18.0) mg/dL Creatinine (0.6-1.0) mg/dL Est Cr Clr Drug Dosing mL/min Estimated GFR (MDRD) ml/min Glucose (74-106) mg/dL Calcium (8.5-10.1) mg/dL Total Bilirubin (0.2-1.0) mg/dL AST (15-37) IU/L ALT (14-63) IU/L Alkaline Phosphatase (46-116) U/L Troponin I (0.000-0.056) ng/mL Total Protein (6.4-8.2) g/dL Albumin (3.4-5.0) g/dL Globulin (2.6-4.0) g/dL Albumin/Globulin Ratio (0.9-1.6) Urine Color YELLOW Urine Appearance CLEAR Urine pH 7.0 (5.0-8.0) Ur Specific [place] 1.010 (1.001-1.035) Urine Protein NEGATIVE (NEGATIVE) mg/dL Urine Glucose (UA) NEGATIVE (NEGATIVE) mg/dL Urine Ketones NEGATIVE (NEGATIVE) mg/dL Urine Occult Blood NEGATIVE (NEGATIVE) Urine Nitrite POSITIVE H (NEGATIVE) Urine Bilirubin NEGATIVE (NEGATIVE) Urine Urobilinogen 0.2 (<2.0) EU/dL Ur Leukocyte Esterase TRACE H (NEGATIVE) Urine RBC 0-2 (0-2/HPF) Urine WBC 1-5 (0-5/HPF) Ur Epithelial Cells OCCASIONAL (NONE-FEW) Urine Bacteria 3+ H (NEGATIVE) Meds: Medications Generic Name Dose Route Start Last Admin Trade Name Freq PRN Reason Stop Dose Admin Sodium Chloride 500 mls @ 999 mls/hr 06/29/19 09:30 06/29/19 09:39 Normal Saline IV 999 mls/hr STAT VITALY Administration Ceftriaxone Sodium/Dextrose 1 50 mls @ 100 mls/hr 06/29/19 10:48 gm/ Premix IV 06/29/19 11:17 ONETIME ONE Sodium Chloride 10 ml 06/29/19 09:18 Saline Flush FLUSH ASDIRECTED PRN Keep Vein Open Sodium Chloride 2.5 ml 06/29/19 09:18 Saline Flush FLUSH ASDIRECTED PRN Keep Vein Open Departure - Departure Time of Disposition: 10:49 Disposition: Refer to Observation Condition: Good Clinical Impression: Dizziness UTI (urinary tract infection) Qualifiers: Urinary tract infection type: site unspecified Hematuria presence: without hematuria Qualified Code(s): N39.0 - Urinary tract infection, site not specified - Discharge Information Referrals: London Singletary MD [Primary Care Provider] - - My Orders Last 24 Hours: My Active Orders 06/29/19 09:17 Cardiac Monitoring [RC] . DIRECTED Saline Lock Insert [OM.PC] Stat 06/29/19 09:18 EKG Documentation Completion [RC] STAT Pulse Oximetry [RC] ASDIRECTED Sodium Chloride 0.9% [Saline Flush] 10 ml FLUSH ASDIRECTED PRN Sodium Chloride 0.9% [Saline Flush] 2.5 ml FLUSH ASDIRECTED PRN 06/29/19 09:30 Sodium Chloride 0.9% [Normal Saline] 500 ml IV STAT 06/29/19 10:25 CULTURE URINE [RM] Stat 06/29/19 10:48 CULTURE BLOOD [BC] Stat CULTURE BLOOD [BC] Stat LACTIC ACID,WHOLE BLOOD [BG] Stat cefTRIAXone [Rocephin in Dextrose,Iso-Osm 1 GM/50 ML] 1 gm Premix Bag 1 bag IV ONETIME Blood Culture x2 Reflex Set [OM.PC] Stat - Assessment/Plan Last 24 Hours: My Active Orders 06/29/19 09:17 Cardiac Monitoring [RC] . DIRECTED Saline Lock Insert [OM.PC] Stat 06/29/19 09:18 EKG Documentation Completion [RC] STAT Pulse Oximetry [RC] ASDIRECTED Sodium Chloride 0.9% [Saline Flush] 10 ml FLUSH ASDIRECTED PRN Sodium Chloride 0.9% [Saline Flush] 2.5 ml FLUSH ASDIRECTED PRN 06/29/19 09:30 Sodium Chloride 0.9% [Normal Saline] 500 ml IV STAT 06/29/19 10:25 CULTURE URINE [RM] Stat 06/29/19 10:48 CULTURE BLOOD [BC] Stat CULTURE BLOOD [BC] Stat LACTIC ACID,WHOLE BLOOD [BG] Stat cefTRIAXone [Rocephin in Dextrose,Iso-Osm 1 GM/50 ML] 1 gm Premix Bag 1 bag IV ONETIME Blood Culture x2 Reflex Set [OM.PC] Stat
[2019-06-29] MEDS ORDERED: Sodium Chloride 0.9% 2.5 ML Syringe FLUSH PRN (09:18)
[2019-06-29] MEDS ORDERED: Sodium Chloride 0.9% 10 ML Syringe FLUSH PRN (09:18)
[2019-06-29] MEDS ORDERED: Sodium Chloride 0.9% 500 ML IV SCH (09:30)
[2019-06-29 10:05] LABS: BLOOD UREA NITROGEN,BUN 24 mg/dL (7.0-18.0); CARBON DIOXIDE,CO2 25.4 mmol/L (21.0-32.0); CHLORIDE,CL 105 mmol/L (98-107); GLUCOSE RANDOM 120 mg/dL (74-106); POTASSIUM,K 3.9 mmol/L (3.5-5.1); SODIUM,NA 140 mmol/L (136-145)
--- NOTE | 2019-06-29 10:18 | CR ---
INDICATION: Chest pain; shortness of breath. COMPARISON: Two-view chest February 21, 2018. TECHNIQUE: Portable AP chest. FINDINGS: Normal size cardiac silhouette . Clear lung silva with no evidence of acute pneumonic infiltrates or CHF. No pneumothorax or pleural effusion. Prominent descending thoracic aorta; stable when compared to February 21, 2018. IMPRESSION: No acute pathology. Dictated by Kori Browning MD @ Jun 29 2019 10:15AM Signed by Dr. Kori Browning @ Jun 29 2019 10:17AM
--- NOTE | 2019-06-29 10:37 | CT ---
INDICATION: Pt w/dizziness. INDICATION: Dizziness. TECHNIQUE: Head CT without contrast. Coronal/sagittal reconstruction images. COMPARISON: None FINDINGS: CSF spaces: Mild cerebral and cerebellar volume loss, which is not out of proportion to the patient`s age. Brain parenchyma: There are nonspecific low attenuation white matter changes consistent with chronic microvascular disease. No sign of mass, hemorrhage, or midline shift. Skull base and calvarium: The visualized mastoid air cells are clear. The visualized orbits are grossly unremarkable. No skull fractures. There is intracranial atherosclerosis. Minimal debris in the ethmoidal air cells, image 10, series 202. IMPRESSION: 1. No acute intracranial hemorrhage, shift of midline structures, or mass effect. 2. No hyperdense MCA sign. 3. Volume loss/small vessel ischemic changes. These are age appropriate. Dictated by Jluis Lisa MD @ 06/29/2019 10:36:31 AM Please note that all CT scans at this facility use dose modulation, iterative reconstruction, and/or weight-based dosing when appropriate to reduce radiation dose to as low as reasonably achievable. Dictated by: Jluis Lisa MD @ 06/29/2019 10:37:06 (Electronically Signed)
[2019-06-29] MEDS ORDERED: cefTRIAXone 1 GM in Premix Bag 1 BAG IV ONE (10:48)
[2019-06-29] MEDS ORDERED: Acetaminophen 325 MG Tab PO PRN (12:41)
[2019-06-29] MEDS ORDERED: Ondansetron 4 MG/2 ML SDV IVPUSH PRN (12:41)
--- NOTE | 2019-06-29 12:44 | PCM.HP.2 ---
H&P History of Present Illness - General Date of Service: 06/29/19 Admit Problem/Dx: Admission Diagnosis/Problem Admission Diagnosis/Problem UTI, Urinary tract infectious disease Source of Information: Patient History Limitations: Reports: No Limitations - History of Present Illness Initial Comments - Free Text/Narative: This 78 year old female with pmh of restless leg syndrome and recent diagnosis of UTI presented to the ED today with concerns of dizziness. She reports she woke up this morning and got out of bed and immediately felt dizzy. She reports she sat down and it continued with only mild relief. She felt she should be evaluated. She reports she was recently diagnosed with UTI and Treated with Macrobid. She reports having mild urinary pain and frequency with urgency. She denies fevers or chills. She reports eating and drinking ok. No chest pain or SOB. No abdominal pain. Scant diarrhea this morning, but she doesn't feel concerned with it. She is feeling better now. She denies tobacco use and no alcohol use. In the ED Labwork WNL, lactact 1.5, BUN 24, Cr 1.2. Troponin neagtrive. Head CT negative. CXr negative. UA reveals +3 bacteria, WBC 1-5, leukocyte esterase, and positive nitrites. She was treated with IVF and Rocephin. Admitted observation for UTI and dizziness. PCP, Dr Singletary. - Related Data Allergies/Adverse Reactions: Allergies Allergy/AdvReac Type Severity Reaction Status Date / Time codeine Allergy Hallucinati Verified 06/29/19 11:46 ons influenza virus vaccine, Allergy Syncope Verified 06/29/19 11:46 specific [Influenza Virus Vacc,Specific] Home Medications: Home Meds Magnesium 500 mg PO BEDTIME 02/22/18 [History] Verapamil HCl [Verapamil Sr] 120 mg PO DAILY PRN 02/22/18 [History] Carbidopa/Levodopa [Carbidopa-Levodopa 25-100 Tab] 25 - 100 mg PO BID@16,21 [History] Gabapentin [Neurontin] 100 mg PO BEDTIME 06/29/19 [History] Ibuprofen [Advil] 200 mg PO . NEEDED PRN 06/29/19 [History] Omeprazole 20 mg PO DAILY 06/29/19 [History] Past Medical History HEENT History: Reports: None Cardiovascular History: Reports: High Cholesterol, Hypertension Respiratory History: Reports: Asthma Gastrointestinal History: Reports: None. Denies: GERD Genitourinary History: Reports: None [employer] ATT[employer] History: Reports: Musculoskeletal History: Reports: Other (See Below) Other Musculoskeletal History: sciatica Neurological History: Reports: Other (See Below) Other Neuro History: restless leg syndrome Psychiatric History: Reports: None Endocrine/Metabolic History: Reports: None. Denies: Diabetes, Type II, Hypothyroidism Hematologic History: Reports: None Immunologic History: Reports: None Oncologic (Cancer) History: Reports: None Dermatologic History: Reports: Other (See Below) Other Dermatologic History: skin cancer nose - Infectious Disease History Infectious Disease History: Reports: Chicken Pox, Measles, Mumps - Past Surgical History Head Surgeries/Procedures: Reports: None HEENT Surgical History: Reports: Other (See Below) Female Surgical History: Reports: Section, Hysterectomy Social & Family History - Family History Family Medical History: Noncontributory - Tobacco Use Smoking Status *Q: Former Smoker Used Tobacco, but Quit: Yes Month/Year Tobacco Last Used: 1978 Second Hand Smoke Exposure: No - Caffeine Use Caffeine Use: Reports: None, Soda - Alcohol Use Alcohol Use History: No - Recreational Drug Use Recreational Drug Use: No - Living Situation & Occupation Living situation: Reports: Occupation: Retired H&P Review of Systems - Review of Systems: Review Of Systems: See Below General: Reports: No Symptoms. Denies: Fever, Chills, Malaise, Weakness HEENT: Reports: Vertigo (gone since arrival to ED.). Denies: Headaches, Sinus Congestion Pulmonary: Reports: No Symptoms. Denies: Shortness of Breath Cardiovascular: Reports: No Symptoms. Denies: Chest Pain Gastrointestinal: Reports: No Symptoms. Denies: Abdominal Pain, Black Stool, Bloody Stool, Nausea, Vomiting Genitourinary: Reports: No Symptoms. Denies: Dysuria, Frequency, Burning Musculoskeletal: Reports: No Symptoms. Denies: Neck Pain, Back Pain Skin: Reports: No Symptoms Psychiatric: Reports: No Symptoms Neurological: Reports: No Symptoms Hematologic/Lymphatic: Reports: No Symptoms Immunologic: Reports: No Symptoms Exam - Exam Exam: See Below - Vital Signs Vital Signs: Last Vital Signs Temp 97.4 F 06/29/19 12:13 Pulse 85 06/29/19 12:13 Resp 18 06/29/19 12:13 BP 108/61 06/29/19 12:13 Pulse Ox 96 06/29/19 12:18 Weight: 56.2 kg - Exam General: Alert, Oriented, Cooperative HEENT: Conjunctiva Clear, Mucosa Moist & [place], Posterior Pharynx Clear Lungs: Clear to Auscultation, Normal Respiratory Effort Cardiovascular: Regular Rate, Regular Rhythm, Normal S1, Normal S2 GI/Abdominal Exam: Normal Bowel Sounds, Soft, Non-Tender Back Exam: Normal Inspection, Full Range of Motion Extremities: Normal Inspection, Normal Range of Motion, Non-Tender, No Pedal Edema Neuro Extensive - Mental Status: Alert, Oriented x3 Neuro Extensive - Motor, Sensory, Reflexes: CN II-XII Intact Psychiatric: Alert, Normal Affect, Normal Mood - Patient Data Lab Results Last 24 hrs: Laboratory Results - last 24 hr 06/29/19 06/29/19 06/29/19 Range/Units 09:13 09:13 09:13 WBC 3.91 L (4.0-11.0) K/uL RBC 3.88 L (4.30-5.90) M/uL Hgb 11.6 L (12.0-16.0) g/dL Hct 36.6 (36.0-46.0) % MCV 94.3 (80.0-98.0) fL MCH 29.9 (27.0-32.0) pg MCHC 31.7 (31.0-37.0) g/dL RDW Std Deviation 47.2 (28.0-62.0) fl RDW Coeff of Bebeto 14 (11.0-15.0) % Plt Count 132 L (150-400) K/uL MPV 8.70 (7.40-12.00) fL Neut % (Auto) 69.5 (48.0-80.0) % Lymph % (Auto) 22.8 (16.0-40.0) % [place] % (Auto) 6.4 (0.0-15.0) % Eos % (Auto) 1.0 (0.0-7.0) % Baso % (Auto) 0.3 (0.0-1.5) % Neut # (Auto) 2.7 (1.4-5.7) K/uL Lymph # (Auto) 0.9 (0.6-2.4) K/uL [place] # (Auto) 0.3 (0.0-0.8) K/uL Eos # (Auto) 0.0 (0.0-0.7) K/uL Baso # (Auto) 0.0 (0.0-0.1) K/uL Nucleated RBC % 0.0 /100WBC Nucleated RBCs # 0 K/uL INR 1.02 Lactate (0.20-2.00) mmol/L Sodium 140 (136-145) mmol/L Potassium 3.9 (3.5-5.1) mmol/L Chloride 105 (98-107) mmol/L Carbon Dioxide 25.4 (21.0-32.0) mmol/L BUN 24 H (7.0-18.0) mg/dL Creatinine 1.2 H (0.6-1.0) mg/dL Est Cr Clr Drug Dosing 30.91 mL/min Estimated GFR (MDRD) 43.3 ml/min Glucose 120 H (74-106) mg/dL Calcium 8.8 (8.5-10.1) mg/dL Total Bilirubin 0.2 (0.2-1.0) mg/dL AST 20 (15-37) IU/L ALT 12 L (14-63) IU/L Alkaline Phosphatase 82 (46-116) U/L Troponin I < 0.050 (0.000-0.056) ng/mL Total Protein 6.4 (6.4-8.2) g/dL Albumin 3.3 L (3.4-5.0) g/dL Globulin 3.1 (2.6-4.0) g/dL Albumin/Globulin Ratio 1.1 (0.9-1.6) Urine Color Urine Appearance Urine pH (5.0-8.0) Ur Specific [place] (1.001-1.035) Urine Protein (NEGATIVE) mg/dL Urine Glucose (UA) (NEGATIVE) mg/dL Urine Ketones (NEGATIVE) mg/dL Urine Occult Blood (NEGATIVE) Urine Nitrite (NEGATIVE) Urine Bilirubin (NEGATIVE) Urine Urobilinogen (<2.0) EU/dL Ur Leukocyte Esterase (NEGATIVE) Urine RBC (0-2/HPF) Urine WBC (0-5/HPF) Ur Epithelial Cells (NONE-FEW) Urine Bacteria (NEGATIVE) 06/29/19 06/29/19 Range/Units 10:25 11:27 WBC (4.0-11.0) K/uL RBC (4.30-5.90) M/uL Hgb (12.0-16.0) g/dL Hct (36.0-46.0) % MCV (80.0-98.0) fL MCH (27.0-32.0) pg MCHC (31.0-37.0) g/dL RDW Std Deviation (28.0-62.0) fl RDW Coeff of Bebeto (11.0-15.0) % Plt Count (150-400) K/uL MPV (7.40-12.00) fL Neut % (Auto) (48.0-80.0) % Lymph % (Auto) (16.0-40.0) % [place] % (Auto) (0.0-15.0) % Eos % (Auto) (0.0-7.0) % Baso % (Auto) (0.0-1.5) % Neut # (Auto) (1.4-5.7) K/uL Lymph # (Auto) (0.6-2.4) K/uL [place] # (Auto) (0.0-0.8) K/uL Eos # (Auto) (0.0-0.7) K/uL Baso # (Auto) (0.0-0.1) K/uL Nucleated RBC % /100WBC Nucleated RBCs # K/uL INR Lactate 1.5 (0.20-2.00) mmol/L Sodium (136-145) mmol/L Potassium (3.5-5.1) mmol/L Chloride (98-107) mmol/L Carbon Dioxide (21.0-32.0) mmol/L BUN (7.0-18.0) mg/dL Creatinine (0.6-1.0) mg/dL Est Cr Clr Drug Dosing mL/min Estimated GFR (MDRD) ml/min Glucose (74-106) mg/dL Calcium (8.5-10.1) mg/dL Total Bilirubin (0.2-1.0) mg/dL AST (15-37) IU/L ALT (14-63) IU/L Alkaline Phosphatase (46-116) U/L Troponin I (0.000-0.056) ng/mL Total Protein (6.4-8.2) g/dL Albumin (3.4-5.0) g/dL Globulin (2.6-4.0) g/dL Albumin/Globulin Ratio (0.9-1.6) Urine Color YELLOW Urine Appearance CLEAR Urine pH 7.0 (5.0-8.0) Ur Specific [place] 1.010 (1.001-1.035) Urine Protein NEGATIVE (NEGATIVE) mg/dL Urine Glucose (UA) NEGATIVE (NEGATIVE) mg/dL Urine Ketones NEGATIVE (NEGATIVE) mg/dL Urine Occult Blood NEGATIVE (NEGATIVE) Urine Nitrite POSITIVE H (NEGATIVE) Urine Bilirubin NEGATIVE (NEGATIVE) Urine Urobilinogen 0.2 (<2.0) EU/dL Ur Leukocyte Esterase TRACE H (NEGATIVE) Urine RBC 0-2 (0-2/HPF) Urine WBC 1-5 (0-5/HPF) Ur Epithelial Cells OCCASIONAL (NONE-FEW) Urine Bacteria 3+ H (NEGATIVE) Result Diagrams: 06/29/19 09:13 06/29/19 09:13 Esa Results Last 24 hrs: Microbiology 06/29/19 11:17 Anaerobic Blood Culture - Final Blood - Venous *Q Meaningful Use (ADM) - VTE *Q VTE Mechanical Contraindications *Q: At Risk for Falls - VTE Risk Assess *Q Each Risk Factor Represents 1 Point: None Total Score 1 Point Risk Factors: 0 Each Risk Factor Represents 2 Points: None Total Score 2 Point Risk Factors: 0 Each Risk Factor Represents 3 Points: Age 75 Years or Greater Total Score 3 Point Risk Factors: 3 Each Risk Factor Represents 5 Points: None Total Score 5 Point Risk Factors: 0 Venous Thromboembolism Risk Factor Score *Q: 3 - Problem List (1) UTI (urinary tract infection) SNOMED Code(s): 16404233 ICD Code: N39.0 - URINARY TRACT INFECTION, SITE NOT SPECIFIED Status: Acute Current Visit: Yes Qualifiers: Urinary tract infection type: site unspecified Hematuria presence: without hematuria Qualified Code(s): N39.0 - Urinary tract infection, site not specified (2) Dizziness SNOMED Code(s): 492034126, 357190209 ICD Code: R42 - DIZZINESS AND GIDDINESS Status: Acute Current Visit: Yes (3) Restless leg syndrome SNOMED Code(s): 72310523 ICD Code: G25.81 - RESTLESS LEGS SYNDROME Status: Chronic Current Visit: Yes Problem List Initiated/Reviewed/Updated: Yes Orders Last 24hrs: Active Orders 24 hr Category Date Time Status Patient Status [ADT] Stat ADT 06/29/19 10:50 Active Cardiac Monitoring [RC] . DIRECTED Care 06/29/19 09:17 Active EKG Documentation Completion [RC] STAT Care 06/29/19 09:18 Active Intake and Output [RC] QSHIFT Care 06/29/19 12:42 Ordered Orthostatic Vital Signs [RC] ASDIRECTED Care 06/29/19 12:42 Ordered Oxygen Therapy [RC] PRN Care 06/29/19 12:41 Ordered Pulse Oximetry [RC] ASDIRECTED Care 06/29/19 09:18 Active Up With Assistance [RC] ASDIRECTED Care 06/29/19 12:41 Ordered VTE/DVT Education [RC] PER UNIT ROUTINE Care 06/29/19 12:41 Ordered Vital Signs [RC] Q4H Care 06/29/19 12:41 Ordered Regular Diet [DIET] Diet 06/29/19 Lunch Ordered CULTURE BLOOD [BC] Stat Lab 06/29/19 11:17 Results CULTURE BLOOD [BC] Stat Lab 06/29/19 11:27 Received CULTURE URINE [RM] Stat Lab 06/29/19 10:25 Received Acetaminophen [Tylenol] Med 06/29/19 12:41 Ordered 650 mg PO Q4H PRN Ondansetron [Zofran] Med 06/29/19 12:41 Ordered 4 mg IVPUSH Q4H PRN Sodium Chloride 0.9% @ 50 MLS/HR(1,000ml) Med 06/29/19 12:45 Ordered Sodium Chloride 0.9% [Normal Saline] 1,000 ml IV ASDIRECTED Sodium Chloride 0.9% [Saline Flush] Med 06/29/19 09:18 Active 10 ml FLUSH ASDIRECTED PRN Sodium Chloride 0.9% [Saline Flush] Med 06/29/19 09:18 Active 2.5 ml FLUSH ASDIRECTED PRN Blood Culture x2 Reflex Set [OM.PC] Stat Oth 06/29/19 10:48 Ordered Saline Lock Insert [OM.PC] Stat Oth 06/29/19 09:17 Ordered Medication Orders Acetaminophen (Tylenol) 650 mg PO Q4H PRN PRN Reason: Pain (mild 1-3) Ondansetron HCl (Zofran) 4 mg IVPUSH Q4H PRN PRN Reason: Nausea Sodium Chloride (Saline Flush) 10 ml FLUSH ASDIRECTED PRN PRN Reason: Keep Vein Open Sodium Chloride (Saline Flush) 2.5 ml FLUSH ASDIRECTED PRN PRN Reason: Keep Vein Open Assessment/Plan Comment:: This 78 year old female admitted with UTI and dizziness 1. UTI: UC pending. Rocephin. Will monitor. 2. Dizziness: Orthostatic VS reveal orthostatic hypotension with some dizziness. Hold Carbidopa for now. Start IVFs, NS 100 monitor in morning. 3. Restless leg syndrome: Carbidopa due to orthostatic hypotension. VTE prophylaxis: SCD ambulation Dispo: 1 day - Mortality Measure Prognosis:: Good
[2019-06-29] MEDS ORDERED: Sodium Chloride 0.9% 1,000 ML IV SCH (12:45)
[2019-06-29] MEDS: Sodium Chloride 0.9% 1,000 ML IV SCH ×2 (14:06→23:51)
[2019-06-29] MEDS ORDERED: Carbidopa/Levodopa 25-100 MG Tab PO SCH (16:00)
[2019-06-29] MEDS: Carbidopa/Levodopa 25-100 MG Tab PO SCH ×2 (17:07→21:57)
[2019-06-29] MEDS ORDERED: Gabapentin 100 MG Cap PO SCH ×2 (19:00→21:00)
[2019-06-29] MEDS ORDERED: Magnesium Oxide 400 MG Tab PO SCH (21:00)
[2019-06-30 04:29] LABS: CARBON DIOXIDE,CO2 21.6 mmol/L (21.0-32.0); POTASSIUM,K 4.2 mmol/L (3.5-5.1)
[2019-06-30] MEDS ORDERED: cefTRIAXone 1 GM in Premix Bag 1 BAG IV SCH (09:00)
[2019-06-30] MEDS ORDERED: Omeprazole 20 MG Cap.CR PO SCH (09:00)
[2019-06-30] MEDS ORDERED: Carbidopa/Levodopa 25-100 MG Tab PO SCH (10:00)
[2019-06-30] MEDS: Sodium Chloride 0.9% 1,000 ML IV SCH (10:18)
--- NOTE | 2019-06-30 16:07 | PCM.DCSUM1 ---
Discharge Summary - Hospital Course Brief History: This 78 year old female with pmh of restless leg syndrome and recent diagnosis of UTI presented to the ED today with concerns of dizziness. She reports she woke up this morning and got out of bed and immediately felt dizzy. She reports she sat down and it continued with only mild relief. She felt she should be evaluated. She reports she was recently diagnosed with UTI and Treated with Macrobid. She reports having mild urinary pain and frequency with urgency. She denies fevers or chills. She reports eating and drinking ok. No chest pain or SOB. No abdominal pain. Scant diarrhea this morning, but she doesn't feel concerned with it. She is feeling better now. She denies tobacco use and no alcohol use. In the ED Labwork WNL, lactact 1.5, BUN 24, Cr 1.2. Troponin neagtrive. Head CT negative. CXr negative. UA reveals +3 bacteria, WBC 1-5, leukocyte esterase, and positive nitrites. She was treated with IVF and Rocephin. Admitted observation for UTI and dizziness. PCP, Dr Singletary. Diagnosis: Stroke: No - Discharge Data Discharge Date: 06/30/19 Discharge Disposition: Home, Self-Care 01 Condition: Good - Referral to Home Health Primary Care Physician: London Singletary MD - Discharge Diagnosis/Problem(s) (1) UTI (urinary tract infection) SNOMED Code(s): 16436674 ICD Code: N39.0 - URINARY TRACT INFECTION, SITE NOT SPECIFIED Status: Acute Qualifiers: Urinary tract infection type: site unspecified Hematuria presence: without hematuria Qualified Code(s): N39.0 - Urinary tract infection, site not specified (2) Dizziness SNOMED Code(s): 616287620, 754899737 ICD Code: R42 - DIZZINESS AND GIDDINESS Status: Acute (3) Restless leg syndrome SNOMED Code(s): 53004082 ICD Code: G25.81 - RESTLESS LEGS SYNDROME Status: Chronic - Patient Summary/Data Consults: Consultations 06/30/19 07:52 Consult to Physical Therapy [PT Evaluation and Treatment] [CONS] Routine - Patient Instructions Diet: Usual Diet as Tolerated Activity: As Tolerated Showering/Bathing: May Shower Notify Provider of: Fever, Increased Pain, Swelling and Redness, Drainage, Nausea and/or Vomiting - Discharge Plan *PRESCRIPTION DRUG MONITORING PROGRAM REVIEWED*: Not Applicable *COPY OF PRESCRIPTION DRUG MONITORING REPORT IN PATIENT AL: Not Applicable Prescriptions/Med Rec: Cephalexin [Keflex] 500 mg PO BID #10 capsule Home Medications: Home Meds Magnesium 500 mg PO BEDTIME 02/22/18 [History] Verapamil HCl [Verapamil Sr] 120 mg PO DAILY PRN 02/22/18 [History] Carbidopa/Levodopa [Carbidopa-Levodopa 25-100 Tab] 25 - 100 mg PO TID 06/29/19 [ History] Gabapentin [Neurontin] 100 mg PO BEDTIME 06/29/19 [History] Ibuprofen [Advil] 200 mg PO . NEEDED PRN 06/29/19 [History] Omeprazole 20 mg PO DAILY 06/29/19 [History] Cephalexin [Keflex] 500 mg PO BID #10 capsule 06/30/19 [Rx] Patient Handouts: Urinary Tract Infection, Adult, [id number], Cephalexin tablets or capsules, Dizziness, [id number] Referrals: London Singletary MD [Primary Care Provider] - 07/05/19 1:30 pm - Discharge Summary/Plan Comment DC Time >30 min.: No Discharge Summary/Plan Comment: Admitting Diagnoses: Dizziness UTI Orthostatic hypotension Discharge Diagnoses: UTI Other PMH: Restless leg syndrome Minford was admitted and treated for UTI and dehydration. She was noted to have some dizziness. Orthostatic BP were significant for hypotension. She was given fluids and those improved today. UTI was treated with Rocephin. UC still pending , but patient very egaer for discharge home today. Will monitor UC, she was counseled to slowly make position changes. Also educated that Carbidopa/ levodopa can also cause orthostatic hypotension and if dizziness returns she may want to speak with PCP regarding changing this medication. She and family verbally understood this. She denies pain and eager to go home. She will be discharged with keflex 500 mg BID for 5 days. She is to return to ED or clinic if concerns should arise. - Patient Data Vitals - Most Recent: Last Vital Signs Temp 98.2 F 06/30/19 11:15 Pulse 84 06/30/19 11:15 Resp 14 06/30/19 11:15 BP 126/74 06/30/19 11:15 Pulse Ox 98 06/30/19 09:00 Orthostatic Blood Pressure [ 118/71 Standing] Orthostatic Blood Pressure [ 117/75 Sitting] Orthostatic Blood Pressure [ 127/73 Supine] Weight - Most Recent: 56.2 kg I&O - Last 24 hours: Intake & Output 06/30/19 06/30/19 06/30/19 06:59 14:59 22:59 Intake Total 2446 950 Output Total 3180 9080 Balance -734 -900 Lab Results - Last 24 hrs: Laboratory Results - last 24 hr 06/30/19 06/30/19 Range/Units 04:08 04:08 WBC 4.75 (4.0-11.0) K/uL RBC 3.64 L (4.30-5.90) M/uL Hgb 10.9 L (12.0-16.0) g/dL Hct 34.3 L (36.0-46.0) % MCV 94.2 (80.0-98.0) fL MCH 29.9 (27.0-32.0) pg MCHC 31.8 (31.0-37.0) g/dL RDW Std Deviation 48.0 (28.0-62.0) fl RDW Coeff of Bebeto 14 (11.0-15.0) % Plt Count 113 L (150-400) K/uL MPV 8.50 (7.40-12.00) fL Neut % (Auto) 56.6 (48.0-80.0) % Lymph % (Auto) 29.3 (16.0-40.0) % [place] % (Auto) 11.4 (0.0-15.0) % Eos % (Auto) 2.5 (0.0-7.0) % Baso % (Auto) 0.2 (0.0-1.5) % Neut # (Auto) 2.7 (1.4-5.7) K/uL Lymph # (Auto) 1.4 (0.6-2.4) K/uL [place] # (Auto) 0.5 (0.0-0.8) K/uL Eos # (Auto) 0.1 (0.0-0.7) K/uL Baso # (Auto) 0.0 (0.0-0.1) K/uL Nucleated RBC % 0.0 /100WBC Nucleated RBCs # 0 K/uL Sodium 142 (136-145) mmol/L Potassium 4.2 (3.5-5.1) mmol/L Chloride 110 H (98-107) mmol/L Carbon Dioxide 21.6 (21.0-32.0) mmol/L BUN 26 H (7.0-18.0) mg/dL Creatinine 1.1 H (0.6-1.0) mg/dL Est Cr Clr Drug Dosing 35.81 mL/min Estimated GFR (MDRD) 47.9 ml/min Glucose 98 (74-106) mg/dL Calcium 8.4 L (8.5-10.1) mg/dL SABAS Results - Last 24 hrs: Microbiology 06/29/19 11:17 Aerobic Blood Culture - Preliminary Blood - Venous NO GROWTH AFTER 1 DAY Anaerobic Blood Culture - Final 06/29/19 11:27 Aerobic Blood Culture - Preliminary Blood - Venous - Lab Draw NO GROWTH AFTER 1 DAY Anaerobic Blood Culture - Preliminary NO GROWTH AFTER 1 DAY Med Orders - Current: Current Medications Discontinued Medications Acetaminophen (Tylenol) 650 mg PO Q4H PRN PRN Reason: Pain (mild 1-3) Last Admin: 06/29/19 13:53 Dose: 650 mg Carbidopa/Levodopa (Sinemet 25-100 Mg) 1 tab PO BID@ [facility] Carbidopa/Levodopa (Sinemet 25-100 Mg) 1 tab PO BID@ [facility] Last Admin: 06/29/19 21:57 Dose: 1 tab Carbidopa/Levodopa (Sinemet 25-100 Mg) 1 tab PO TID@,, [facility] Last Admin: 06/30/19 10:18 Dose: 1 tab Gabapentin (Neurontin) 100 mg PO BEDTIME [facility] Gabapentin (Neurontin) 100 mg PO DAILY@1900 [facility] Last Admin: 06/29/19 19:58 Dose: 100 mg Sodium Chloride (Normal Saline) 500 mls @ 999 mls/hr IV STAT [facility] Last Admin: 06/29/19 09:39 Dose: 999 mls/hr Ceftriaxone Sodium/Dextrose 1 (gm/ Premix) 50 mls @ 100 mls/hr IV ONETIME ONE Stop: 06/29/19 11:17 Last Admin: 06/29/19 11:30 Dose: 100 mls/hr Sodium Chloride (Normal Saline) 1,000 mls @ 50 mls/hr IV ASDIRECTED [facility] Last Admin: 06/29/19 13:32 Dose: 50 mls/hr Sodium Chloride (Normal Saline) 1,000 mls @ 100 mls/hr IV ASDIRECTED [facility] Last Admin: 06/30/19 10:18 Dose: 100 mls/hr Ceftriaxone Sodium/Dextrose 1 (gm/ Premix) 50 mls @ 100 mls/hr IV Q24H [facility] Last Admin: 06/30/19 09:16 Dose: 100 mls/hr Magnesium Oxide (Magnesium Oxide) 400 mg PO BEDTIME [facility] Last Admin: 06/29/19 20:00 Dose: 400 mg Omeprazole (Omeprazole) 20 mg PO DAILY [facility] Last Admin: 06/30/19 09:15 Dose: 20 mg Ondansetron HCl (Zofran) 4 mg IVPUSH Q4H PRN PRN Reason: Nausea Sodium Chloride (Saline Flush) 10 ml FLUSH ASDIRECTED PRN PRN Reason: Keep Vein Open Sodium Chloride (Saline Flush) 2.5 ml FLUSH ASDIRECTED PRN PRN Reason: Keep Vein Open *Q Meaningful Use (DIS) - VTE *Q VTE Mechanical Contraindications *Q: At Risk for Falls
== END 2019-06-30 12:30 | disposition home or self-care (01) ==
LOC: MW.ED 09:05 → MW.MS 10:50
PROVIDERS: ADMIT Internal Medicine; ATTEND Internal Medicine
DX: N39.0 Urinary tract infection, site not specified (principal); G25.81 Restless legs syndrome; E86.0 Dehydration; E78.00 Pure hypercholesterolemia, unspecified; I10 Essential (primary) hypertension; J45.909 Unspecified asthma, uncomplicated; Z87.891 Personal history of nicotine dependence; Z79.899 Other long term (current) drug therapy; Z88.5 Allergy status to narcotic agent; Z88.7 Allergy status to serum and vaccine
CPT/HCPCS: 36415; 70450; 71045; 80048; 80053; 81001; 83605; 84484; 85025; 85610; 87040; 87086; 87088; 87186; 93005; 96361; 96374; 96376; 97161; 99285; A9270; G0378; J0696; J7040; 99284

== ENCOUNTER 2019-08-11 12:38 | Inpatient (IN) | payer MEDICARE, BC ==
[2019-08-11] MEDS ORDERED: Sodium Chloride 0.9% 2.5 ML Syringe FLUSH PRN (12:39)
[2019-08-11] MEDS ORDERED: Sodium Chloride 0.9% 10 ML Syringe FLUSH PRN (12:39)
[2019-08-11] MEDS ORDERED: Aspirin 81 MG Tab.Chew PO ONE (12:48)
[2019-08-11] MEDS ORDERED: Ketorolac 30 MG/ML SDV IVPUSH ONE ×2 (12:53→19:24)
--- NOTE | 2019-08-11 12:53 | EDM.PDOC ---
ED HPI GENERAL MEDICAL PROBLEM - General Chief Complaint: Chest Pain Stated Complaint: CHEST PAINS AND RIGHT SIDE PAIN Time Seen by Provider: 08/11/19 12:52 Source of Information: Reports: Patient - History of Present Illness INITIAL COMMENTS - FREE TEXT/NARRATIVE: HISTORY AND PHYSICAL: History of present illness: She complains of right upper quadrant pain 8 out of 10 radiating to the right shoulder and back initially did provide Toradol 15 mg along with fluids this improved somewhat to a 7 however not adequate pain control and did order ultrasound which was negative for shadowing stone CT is also negative outside of possibly a distended gallbladder and common bile ducts somewhat conflict in information however not totally ruling out from a gallbladder standpoint I did speak with Dr. Zapien states within it admit for pain control and calming down the gallbladder MRCP PE or HIDA scan would be a consideration when available He is to have intractable pain after morphine and Dilaudid fluids running at 125 no fever she does complain of nausea and has vomited post morphine vomiting has slowed no chest pain shortness breath headache dizziness palpitation no bowel or urine symptoms [] Review of systems: As per history of present illness and below otherwise all systems reviewed and negative. Past medical history: As per history of present illness and as reviewed below otherwise noncontributory. Surgical history: As per history of present illness and as reviewed below otherwise noncontributory. Social history: No reported history of drug or alcohol abuse. Family history: As per history of present illness and as reviewed below otherwise noncontributory. Physical exam: HEENT: Atraumatic, normocephalic, pupils reactive, negative for conjunctival pallor or scleral icterus, mucous membranes moist, throat clear, neck supple, nontender, trachea midline. Lungs: Clear to auscultation, breath sounds equal bilaterally, chest nontender. Heart: S1S2, regular, negative for clicks, rubs, or JVD. Abdomen: Soft, nondistended, Tender in right upper quadrant no guarding or rebound. Negative for masses or hepatosplenomegaly. Negative for costovertebral tenderness. Pelvis: Stable nontender. Genitourinary: Deferred. Rectal: Deferred. Extremities: Atraumatic, negative for cords or calf pain. Neurovascular unremarkable. Neuro: Awake, alert, oriented. Cranial nerves II through XII unremarkable. Cerebellum unremarkable. Motor and sensory unremarkable throughout. Exam nonfocal. Diagnostics: [ CBC CMP UA lipase Chest [address] chest abdomen pelvis no contrast ] Therapeutics: [Saline Zofran Phenergan Toradol Morphine Dilaudid] A shunt admitted for intractable pain Impression: [Upper quadrant pain] Definitive disposition and diagnosis as appropriate pending reevaluation and review of above. chest Pain Score (Numeric/FACES): 3 - Related Data Allergies Allergy/AdvReac Type Severity Reaction Status Date / Time codeine Allergy Hallucinati Verified 06/29/19 11:46 ons influenza virus vaccine, Allergy Syncope Verified 06/29/19 11:46 specific [Influenza Virus Vacc,Specific] Home Meds: Home Meds Magnesium 500 mg PO BEDTIME 02/22/18 [History] Verapamil HCl [Verapamil Sr] 120 mg PO DAILY PRN 02/22/18 [History] Carbidopa/Levodopa [Carbidopa-Levodopa 25-100 Tab] 25 - 100 mg PO TID 06/29/19 [ History] Gabapentin [Neurontin] 100 mg PO BEDTIME 06/29/19 [History] Ibuprofen [Advil] 200 mg PO . NEEDED PRN 06/29/19 [History] Omeprazole 20 mg PO DAILY 06/29/19 [History] Cephalexin [Keflex] 500 mg PO BID #10 capsule 06/30/19 [Rx] Past Medical History HEENT History: Reports: None Cardiovascular History: Reports: High Cholesterol, Hypertension Respiratory History: Reports: Asthma Gastrointestinal History: Reports: None Genitourinary History: Reports: None [employer] FINISHING History: Reports: Musculoskeletal History: Reports: Other (See Below) Other Musculoskeletal History: sciatica Neurological History: Reports: Other (See Below) Other Neuro History: restless leg syndrome Psychiatric History: Reports: None Endocrine/Metabolic History: Reports: None Hematologic History: Reports: None Immunologic History: Reports: None Oncologic (Cancer) History: Reports: None Dermatologic History: Reports: Other (See Below) Other Dermatologic History: skin cancer nose - Infectious Disease History Infectious Disease History: Reports: Chicken Pox, Measles, Mumps - Past Surgical History Head Surgeries/Procedures: Reports: None HEENT Surgical History: Reports: Other (See Below) Female Surgical History: Reports: Section, Hysterectomy Social & Family History - Family History Family Medical History: Noncontributory - Tobacco Use Smoking Status *Q: Never Smoker - Caffeine Use Caffeine Use: Reports: None, Soda - Recreational Drug Use Recreational Drug Use: No - Living Situation & Occupation Living situation: Reports: Occupation: Retired ED ROS GENERAL - Review of Systems Review Of Systems: See Below ED EXAM, GENERAL - Physical Exam Exam: See Below Course - Vital Signs Last Recorded V/S: Last Vital Signs Temp 96.9 F 08/11/19 12:43 Pulse 70 08/11/19 15:27 Resp 20 08/11/19 15:27 BP 94/49 L 08/11/19 15:27 Pulse Ox 98 08/11/19 15:27 - Orders/Labs/Meds Orders: Active Orders 24 hr Category Date Time Status EKG Documentation Completion [RC] STAT Care 08/11/19 12:39 Active Nitroglycerin [Nitrostat] Med 08/11/19 15:01 Active 0.4 mg SL Q5M PRN Sodium Chloride 0.9% [Normal Saline] 1,000 ml Med 08/11/19 17:30 Active IV STAT Sodium Chloride 0.9% [Normal Saline] 500 ml Med 08/11/19 13:00 Active IV STAT Sodium Chloride 0.9% [Saline Flush] Med 08/11/19 12:39 Active 10 ml FLUSH ASDIRECTED PRN Sodium Chloride 0.9% [Saline Flush] Med 08/11/19 12:39 Active 2.5 ml FLUSH ASDIRECTED PRN Saline Lock Insert [OM.PC] Stat Oth 08/11/19 12:39 Ordered Medication Orders Sodium Chloride (Normal Saline) 500 mls @ 999 mls/hr IV STAT VITALY Last Admin: 08/11/19 12:56 Dose: 999 mls/hr Sodium Chloride (Normal Saline) 1,000 mls @ 125 mls/hr IV STAT VITALY Last Admin: 08/11/19 17:35 Dose: 125 mls/hr Nitroglycerin (Nitrostat) 0.4 mg SL Q5M PRN PRN Reason: Chest Pain Last Admin: 08/11/19 15:10 Dose: 0.4 mg Sodium Chloride (Saline Flush) 10 ml FLUSH ASDIRECTED PRN PRN Reason: Keep Vein Open Last Admin: 08/11/19 12:55 Dose: 10 ml Sodium Chloride (Saline Flush) 2.5 ml FLUSH ASDIRECTED PRN PRN Reason: Keep Vein Open Last Admin: 08/11/19 12:54 Dose: 2.5 ml Labs: Laboratory Tests 08/11/19 08/11/19 08/11/19 Range/Units 12:40 12:40 12:40 WBC 5.97 (4.0-11.0) K/uL RBC 4.14 L (4.30-5.90) M/uL Hgb 12.5 (12.0-16.0) g/dL Hct 39.1 (36.0-46.0) % MCV 94.4 (80.0-98.0) fL MCH 30.2 (27.0-32.0) pg MCHC 32.0 (31.0-37.0) g/dL RDW Std Deviation 46.2 (28.0-62.0) fl RDW Coeff of Bebeto 13 (11.0-15.0) % Plt Count 165 (150-400) K/uL MPV 8.70 (7.40-12.00) fL Neut % (Auto) 55.5 (48.0-80.0) % Lymph % (Auto) 35.0 (16.0-40.0) % Isabella % (Auto) 8.0 (0.0-15.0) % Eos % (Auto) 1.2 (0.0-7.0) % Baso % (Auto) 0.3 (0.0-1.5) % Neut # (Auto) 3.3 (1.4-5.7) K/uL Lymph # (Auto) 2.1 (0.6-2.4) K/uL Isabella # (Auto) 0.5 (0.0-0.8) K/uL Eos # (Auto) 0.1 (0.0-0.7) K/uL Baso # (Auto) 0.0 (0.0-0.1) K/uL Nucleated RBC % 0.0 /100WBC Nucleated RBCs # 0 K/uL INR 1.00 Sodium 142 (136-145) mmol/L Potassium 3.8 (3.5-5.1) mmol/L Chloride 107 (98-107) mmol/L Carbon Dioxide 21.3 (21.0-32.0) mmol/L BUN 29 H (7.0-18.0) mg/dL Creatinine 1.3 H (0.6-1.0) mg/dL Est Cr Clr Drug Dosing 30.30 mL/min Estimated GFR (MDRD) 39.5 ml/min Glucose 152 H (74-106) mg/dL Calcium 8.8 (8.5-10.1) mg/dL Total Bilirubin 0.3 (0.2-1.0) mg/dL AST 17 (15-37) IU/L ALT 13 L (14-63) IU/L Alkaline Phosphatase 95 (46-116) U/L Troponin I < 0.050 (0.000-0.056) ng/mL Total Protein 6.9 (6.4-8.2) g/dL Albumin 3.7 (3.4-5.0) g/dL Globulin 3.2 (2.6-4.0) g/dL Albumin/Globulin Ratio 1.2 (0.9-1.6) Lipase (73-393) U/L 08/11/ Range/Units 12:40 WBC (4.0-11.0) K/uL RBC (4.30-5.90) M/uL Hgb (12.0-16.0) g/dL Hct (36.0-46.0) % MCV (80.0-98.0) fL MCH (27.0-32.0) pg MCHC (31.0-37.0) g/dL RDW Std Deviation (28.0-62.0) fl RDW Coeff of Bebeto (11.0-15.0) % Plt Count (150-400) K/uL MPV (7.40-12.00) fL Neut % (Auto) (48.0-80.0) % Lymph % (Auto) (16.0-40.0) % Isabella % (Auto) (0.0-15.0) % Eos % (Auto) (0.0-7.0) % Baso % (Auto) (0.0-1.5) % Neut # (Auto) (1.4-5.7) K/uL Lymph # (Auto) (0.6-2.4) K/uL Isabella # (Auto) (0.0-0.8) K/uL Eos # (Auto) (0.0-0.7) K/uL Baso # (Auto) (0.0-0.1) K/uL Nucleated RBC % /100WBC Nucleated RBCs # K/uL INR Sodium (136-145) mmol/L Potassium (3.5-5.1) mmol/L Chloride (98-107) mmol/L Carbon Dioxide (21.0-32.0) mmol/L BUN (7.0-18.0) mg/dL Creatinine (0.6-1.0) mg/dL Est Cr Clr Drug Dosing mL/min Estimated GFR (MDRD) ml/min Glucose (74-106) mg/dL Calcium (8.5-10.1) mg/dL Total Bilirubin (0.2-1.0) mg/dL AST (15-37) IU/L ALT (14-63) IU/L Alkaline Phosphatase (46-116) U/L Troponin I (0.000-0.056) ng/mL Total Protein (6.4-8.2) g/dL Albumin (3.4-5.0) g/dL Globulin (2.6-4.0) g/dL Albumin/Globulin Ratio (0.9-1.6) Lipase 226 (73-393) U/L Meds: Medications Generic Name Dose Route Start Last Admin Trade Name Freq PRN Reason Stop Dose Admin Sodium Chloride 500 mls @ 999 mls/hr 08/11/19 13:00 08/11/19 12:56 Normal Saline IV 999 mls/hr STAT VITALY Administration Sodium Chloride 1,000 mls @ 125 mls/hr 08/11/19 17:30 08/11/19 17:35 Normal Saline IV 125 mls/hr STAT VITALY Administration Nitroglycerin 0.4 mg 08/11/19 15:01 08/11/19 15:10 Nitrostat SL 0.4 mg Q5M PRN Administration Chest Pain Sodium Chloride 10 ml 08/11/19 12:39 08/11/19 12:55 Saline Flush FLUSH 10 ml ASDIRECTED PRN Administration Keep Vein Open Sodium Chloride 2.5 ml 08/11/19 12:39 08/11/19 12:54 Saline Flush FLUSH 2.5 ml ASDIRECTED PRN Administration Keep Vein Open Discontinued Medications Generic Name Dose Route Start Last Admin Trade Name Freq PRN Reason Stop Dose Admin Aspirin 324 mg 08/11/19 12:48 08/11/19 12:53 Aspirin PO 08/11/19 12:49 324 mg ONETIME ONE Administration Hydromorphone HCl 1 mg 08/11/19 17:27 08/11/19 17:35 Dilaudid IVPUSH 08/11/19 17:28 1 mg ONETIME ONE Administration Sodium Chloride 1,000 mls @ 999 mls/hr 08/11/19 15:28 08/11/19 15:33 Normal Saline IV 08/11/19 16:28 999 mls/hr .Bolus ONE Administration Ketorolac Tromethamine 15 mg 08/11/19 12:53 08/11/19 12:58 Toradol IVPUSH 08/11/19 12:54 15 mg ONETIME ONE Administration Lorazepam 0.5 mg 08/11/19 15:21 08/11/19 15:25 Ativan IVPUSH 08/11/19 15:22 0.5 mg STAT STA Administration Morphine Sulfate 2 mg 08/11/19 14:08 08/11/19 14:12 Morphine IVPUSH 08/11/19 14:09 2 mg ONETIME ONE Administration Ondansetron HCl 4 mg 08/11/19 14:09 08/11/19 14:12 Zofran IVPUSH 08/11/19 14:10 4 mg ONETIME ONE Administration Ondansetron HCl Confirm 08/11/19 14:17 08/11/19 14:22 Zofran Administered 08/11/19 14:18 Not Given Dose 4 mg .ROUTE .STK-MED ONE Ondansetron HCl 4 mg 08/11/19 14:18 08/11/19 14:18 Zofran IVPUSH 08/11/19 14:19 4 mg ONETIME ONE Administration Promethazine HCl 25 mg 08/11/19 14:51 08/11/19 14:56 Phenergan IM 08/11/19 14:52 25 mg ONETIME ONE Administration Departure - Departure Time of Disposition: 17:49 Disposition: Refer to Observation Condition: Fair Clinical Impression: Abdominal pain - Discharge Information Referrals: PCP,Unobtain [Primary Care Provider] - Forms: ED Department Discharge - My Orders Last 24 Hours: My Active Orders 08/11/19 13:00 Sodium Chloride 0.9% [Normal Saline] 500 ml IV STAT 08/11/19 15:01 Nitroglycerin [Nitrostat] 0.4 mg SL Q5M PRN 08/11/19 17:30 Sodium Chloride 0.9% [Normal Saline] 1,000 ml IV STAT - Assessment/Plan Last 24 Hours: My Active Orders 08/11/19 13:00 Sodium Chloride 0.9% [Normal Saline] 500 ml IV STAT 08/11/19 15:01 Nitroglycerin [Nitrostat] 0.4 mg SL Q5M PRN 08/11/19 17:30 Sodium Chloride 0.9% [Normal Saline] 1,000 ml IV STAT
[2019-08-11] MEDS ORDERED: Sodium Chloride 0.9% 500 ML IV SCH (13:00)
[2019-08-11 13:20] LABS: BLOOD UREA NITROGEN,BUN 29 mg/dL (7.0-18.0); CARBON DIOXIDE,CO2 21.3 mmol/L (21.0-32.0); CHLORIDE,CL 107 mmol/L (98-107); GLUCOSE RANDOM 152 mg/dL (74-106); POTASSIUM,K 3.8 mmol/L (3.5-5.1); SODIUM,NA 142 mmol/L (136-145)
--- NOTE | 2019-08-11 13:52 | CR ---
Chest: Frontal view of the chest was obtained. Comparison: Prior chest x-ray of 06/29/19. Heart size is normal. Tortuous thoracic aorta is seen. Lungs are clear with no acute parenchymal change. Scoliosis is noted within the spine. Impression: Nothing acute is seen on frontal chest x-ray. Diagnostic code #2 This report was dictated in [place] Standard Time MTDD
--- NOTE | 2019-08-11 14:07 | US ---
Limited abdominal ultrasound: Multiple real-time images were obtained of the upper right abdomen. Liver shows no focal parenchymal abnormality. Visualized portions of the pancreas are within normal limits. Gallbladder contains no shadowing gallstones. No gallbladder wall thickening is seen. No biliary duct dilatation is seen. Right kidney shows no hydronephrosis or mass and has a length of 9.8 cm. Impression: No abnormality is appreciated on right upper quadrant abdominal ultrasound. Diagnostic code #1 This report was dictated in [place] [employer] MTDD
[2019-08-11] MEDS ORDERED: Morphine 2 MG/ML Syringe IVPUSH ONE (14:08)
[2019-08-11] MEDS ORDERED: Ondansetron 4 MG/2 ML SDV IVPUSH ONE ×2 (14:09→14:18)
[2019-08-11] MEDS ORDERED: Ondansetron 4 MG/2 ML SDV ONE (14:17)
[2019-08-11] MEDS ORDERED: Promethazine 25 MG/ML SDV IM ONE (14:51)
[2019-08-11] MEDS ORDERED: Nitroglycerin 0.4 MG Tab.SL SL PRN (15:01)
[2019-08-11] MEDS ORDERED: LORazepam 2 MG/ML SDV IVPUSH STA (15:21)
[2019-08-11] MEDS ORDERED: Sodium Chloride 0.9% 1,000 ML IV ONE (15:28)
--- NOTE | 2019-08-11 17:03 | CT ---
Indication: Abdominal pain Technique: A CT volumetric acquisition was performed of the abdomen and pelvis without IV contrast. Comparison: None available Findings: There is bronchiectasis within the left lower lobe with accompanying 9 parenchymal scarring. The unenhanced liver and spleen appear normal. There is no evidence of inflammation within the pancreas. Gallbladder is distended. The common bile duct is generous measuring 9 mm in diameter as it traverses the pancreas. The kidneys and adrenal glands appear normal. Atherosclerotic changes are present within the aorta. Motion artifacts obscures the bowel loops within the lower abdomen and pelvis. Patient status post hysterectomy. The urinary bladder appears normal. Impression: Distended gallbladder and prominent common bile duct. Findings could indicate potential choledocholithiasis and acute cholecystitis. Please note that all CT scans at this facility use dose modulation, iterative reconstruction, and/or weight-based dosing when appropriate to reduce radiation dose to as low as reasonably achievable. Dictated by Mushtaq Billingsley MD @ Aug 11 2019 4:41PM Signed by Dr. Mushtaq Billingsley @ Aug 11 2019 5:03PM
--- NOTE | 2019-08-11 17:08 | CT ---
INDICATION: Abdominal pain. TECHNIQUE: A CT volumetric acquisition was performed of the thorax without IV contrast. FINDINGS: CT images demonstrate cylindrical and varicose bronchiectasis within the basilar segments of the left lower lobe. There is adjacent pleural parenchymal scarring. The remaining lung silva appear normal. There is no evidence of emphysema or pneumothorax. The thyroid gland has normal size and density. There is no evidence of lymph node enlargement within the central mediastinum or either axilla. Atherosclerotic calcifications are present within the aorta. The heart size appears normal. There is no evidence of pericardial fluid or pleural fluid. IMPRESSION: Bronchiectasis and scarring noted within the left lower lobe. Please note that all CT scans at this facility use dose modulation, iterative reconstruction, and/or weight-based dosing when appropriate to reduce radiation dose to as low as reasonably achievable. Dictated by Mushtaq Billingsley MD @ Aug 11 2019 5:03PM Signed by Dr. Mushtaq Billingsley @ Aug 11 2019 5:05PM
[2019-08-11] MEDS ORDERED: HYDROmorphone 1 MG/ML Syringe IVPUSH ONE (17:27)
[2019-08-11] MEDS ORDERED: Sodium Chloride 0.9% 1,000 ML IV SCH (17:30)
--- NOTE | 2019-08-11 18:28 | PCM.HP.2 ---
<Murphy Saeed M - Last Filed: 08/11/19 18:52> H&P History of Present Illness - General Date of Service: 08/11/19 Admit Problem/Dx: Admission Diagnosis/Problem Admission Diagnosis/Problem Abdominal pain Source of Information: Patient History Limitations: Reports: No Limitations - History of Present Illness Initial Comments - Free Text/Narative: 78-year-old female presented to ER with complaints of RUQ abdominal pain, nausea and vomiting. She has a PMH of hyperlipidemia, HTN and asthma. Patient reports the pain started early this morning and slowly got worse as the day progressed. The pain is in the RUQ and also has pain her right shoulder. Pain is described as being sharp in nature and rated as a 10/10. She also reported having sweats. Denied fevers, shortness of breath, chest pain, diarrhea, blood in stool or blood in urine. In the ER, EKG was unremarkable, troponin was negative, CXR negative, RUQ ultrasound negative and CT chest negative. CT abdomen showed distended gallbladder and prominent common bile duct indicating potential choledocholithiasis and acute cholecystitis. General surgery was contacted by ER provider who recommended further work up with HIDA scan and is willing to be consulted on case. Patient admitted for further evaluation. chest Pain Score (Numeric/FACES): 3 - Related Data Allergies/Adverse Reactions: Allergies Allergy/AdvReac Type Severity Reaction Status Date / Time codeine Allergy Hallucinati Verified 06/29/19 11:46 ons influenza virus vaccine, Allergy Syncope Verified 06/29/19 11:46 specific [Influenza Virus Vacc,Specific] Home Medications: Home Meds Magnesium 500 mg PO BEDTIME 02/22/18 [History] Verapamil HCl [Verapamil Sr] 120 mg PO DAILY PRN 02/22/18 [History] Carbidopa/Levodopa [Carbidopa-Levodopa 25-100 Tab] 25 - 100 mg PO TID 06/29/19 [ History] Gabapentin [Neurontin] 100 mg PO BEDTIME 06/29/19 [History] Ibuprofen [Advil] 200 mg PO . NEEDED PRN 06/29/19 [History] Omeprazole 20 mg PO DAILY 06/29/19 [History] Cephalexin [Keflex] 500 mg PO BID #10 capsule 06/30/19 [Rx] Past Medical History HEENT History: Reports: None Cardiovascular History: Reports: High Cholesterol, Hypertension Respiratory History: Reports: Asthma Gastrointestinal History: Reports: None Genitourinary History: Reports: None TUNNEL MUCKER History: Reports: Musculoskeletal History: Reports: Other (See Below) Other Musculoskeletal History: sciatica Neurological History: Reports: Other (See Below) Other Neuro History: restless leg syndrome Psychiatric History: Reports: None Endocrine/Metabolic History: Reports: None Hematologic History: Reports: None Immunologic History: Reports: None Oncologic (Cancer) History: Reports: None Dermatologic History: Reports: Other (See Below) Other Dermatologic History: skin cancer nose - Infectious Disease History Infectious Disease History: Reports: Chicken Pox, Measles, Mumps - Past Surgical History Head Surgeries/Procedures: Reports: None HEENT Surgical History: Reports: Other (See Below) Female Surgical History: Reports: Section, Hysterectomy Social & Family History - Family History Family Medical History: Noncontributory - Tobacco Use Smoking Status *Q: Never Smoker - Caffeine Use Caffeine Use: Reports: None, Soda - Recreational Drug Use Recreational Drug Use: No - Living Situation & Occupation Living situation: Reports: Occupation: Retired H&P Review of Systems - Review of Systems: Review Of Systems: Comprehensive ROS is negative, except as noted in HPI. Exam - Exam Exam: See Below - Vital Signs Vital Signs: Last Vital Signs Temp 96.9 F 08/11/19 12:43 Pulse 70 08/11/19 15:27 Resp 20 08/11/19 15:27 BP 94/49 L 08/11/19 15:27 Pulse Ox 98 08/11/19 15:27 Weight: 56.245 kg - Exam General: Moderate Distress HEENT: Conjunctiva Clear, EOMI, Hearing Intact Neck: Supple, Trachea Midline Lungs: Clear to Auscultation, Normal Respiratory Effort Cardiovascular: Regular Rate, Regular Rhythm GI/Abdominal Exam: Normal Bowel Sounds, Soft, No Distention, Other (tenderness to palpation in RUQ, no rebound tenderness) Extremities: Normal Inspection, No Pedal Edema Peripheral Pulses: 2+: Posterior Tibial (L), Posterior Tibial (R) Skin: Warm, Dry, Intact Neurological: Cranial Nerves Intact, Strength Equal Bilateral, Normal Speech, Normal Tone Neuro Extensive - Mental Status: Alert, Oriented x3, Normal Mood/Affect - Patient Data Lab Results Last 24 hrs: Laboratory Results - last 24 hr 08/11/19 08/11/19 08/11/19 Range/Units 12:40 12:40 12:40 WBC 5.97 (4.0-11.0) K/uL RBC 4.14 L (4.30-5.90) M/uL Hgb 12.5 (12.0-16.0) g/dL Hct 39.1 (36.0-46.0) % MCV 94.4 (80.0-98.0) fL MCH 30.2 (27.0-32.0) pg MCHC 32.0 (31.0-37.0) g/dL RDW Std Deviation 46.2 (28.0-62.0) fl RDW Coeff of Bebeto 13 (11.0-15.0) % Plt Count 165 (150-400) K/uL MPV 8.70 (7.40-12.00) fL Neut % (Auto) 55.5 (48.0-80.0) % Lymph % (Auto) 35.0 (16.0-40.0) % Carver % (Auto) 8.0 (0.0-15.0) % Eos % (Auto) 1.2 (0.0-7.0) % Baso % (Auto) 0.3 (0.0-1.5) % Neut # (Auto) 3.3 (1.4-5.7) K/uL Lymph # (Auto) 2.1 (0.6-2.4) K/uL Carver # (Auto) 0.5 (0.0-0.8) K/uL Eos # (Auto) 0.1 (0.0-0.7) K/uL Baso # (Auto) 0.0 (0.0-0.1) K/uL Nucleated RBC % 0.0 /100WBC Nucleated RBCs # 0 K/uL INR 1.00 Sodium 142 (136-145) mmol/L Potassium 3.8 (3.5-5.1) mmol/L Chloride 107 (98-107) mmol/L Carbon Dioxide 21.3 (21.0-32.0) mmol/L BUN 29 H (7.0-18.0) mg/dL Creatinine 1.3 H (0.6-1.0) mg/dL Est Cr Clr Drug Dosing 30.30 mL/min Estimated GFR (MDRD) 39.5 ml/min Glucose 152 H (74-106) mg/dL Calcium 8.8 (8.5-10.1) mg/dL Total Bilirubin 0.3 (0.2-1.0) mg/dL AST 17 (15-37) IU/L ALT 13 L (14-63) IU/L Alkaline Phosphatase 95 (46-116) U/L Troponin I < 0.050 (0.000-0.056) ng/mL Total Protein 6.9 (6.4-8.2) g/dL Albumin 3.7 (3.4-5.0) g/dL Globulin 3.2 (2.6-4.0) g/dL Albumin/Globulin Ratio 1.2 (0.9-1.6) Lipase (73-393) U/L 08/11/19 Range/Units 12:40 WBC (4.0-11.0) K/uL RBC (4.30-5.90) M/uL Hgb (12.0-16.0) g/dL Hct (36.0-46.0) % MCV (80.0-98.0) fL MCH (27.0-32.0) pg MCHC (31.0-37.0) g/dL RDW Std Deviation (28.0-62.0) fl RDW Coeff of Bebeto (11.0-15.0) % Plt Count (150-400) K/uL MPV (7.40-12.00) fL Neut % (Auto) (48.0-80.0) % Lymph % (Auto) (16.0-40.0) % Carver % (Auto) (0.0-15.0) % Eos % (Auto) (0.0-7.0) % Baso % (Auto) (0.0-1.5) % Neut # (Auto) (1.4-5.7) K/uL Lymph # (Auto) (0.6-2.4) K/uL Carver # (Auto) (0.0-0.8) K/uL Eos # (Auto) (0.0-0.7) K/uL Baso # (Auto) (0.0-0.1) K/uL Nucleated RBC % /100WBC Nucleated RBCs # K/uL INR Sodium (136-145) mmol/L Potassium (3.5-5.1) mmol/L Chloride (98-107) mmol/L Carbon Dioxide (21.0-32.0) mmol/L BUN (7.0-18.0) mg/dL Creatinine (0.6-1.0) mg/dL Est Cr Clr Drug Dosing mL/min Estimated GFR (MDRD) ml/min Glucose (74-106) mg/dL Calcium (8.5-10.1) mg/dL Total Bilirubin (0.2-1.0) mg/dL AST (15-37) IU/L ALT (14-63) IU/L Alkaline Phosphatase (46-116) U/L Troponin I (0.000-0.056) ng/mL Total Protein (6.4-8.2) g/dL Albumin (3.4-5.0) g/dL Globulin (2.6-4.0) g/dL Albumin/Globulin Ratio (0.9-1.6) Lipase 226 (73-393) U/L Result Diagrams: 08/11/19 12:40 08/11/19 12:40 Problem List Initiated/Reviewed/Updated: Yes Orders Last 24hrs: Active Orders 24 hr Category Date Time Status Admission Status [Patient Status] [ADT] Stat ADT 08/11/19 17:50 Active EKG Documentation Completion [RC] STAT Care 08/11/19 12:39 Active Oxygen Therapy [RC] PRN Care 08/11/19 18:12 Ordered Up With Assistance [RC] ASDIRECTED Care 08/11/19 18:12 Ordered VTE/DVT Education [RC] PER UNIT ROUTINE Care 08/11/19 18:12 Ordered Vital Signs [RC] Q4H Care 08/11/19 18:12 Ordered Nothing per Oral Now Diet [DIET] Diet 08/11/19 Dinner Ordered CBC WITH AUTO DIFF [HEME] AM Lab 08/12/19 05:11 Ordered COMPREHENSIVE METABOLIC PN,CMP [CHEM] AM Lab 08/12/19 05:11 Ordered Heparin Sodium Med 08/11/19 18:15 Active 5,000 units SUBCUT Q8H Nitroglycerin [Nitrostat] Med 08/11/19 15:01 Active 0.4 mg SL Q5M PRN Sodium Chloride 0.9% [Normal Saline] 1,000 ml Med 08/11/19 18:15 Active IV STAT Sodium Chloride 0.9% [Saline Flush] Med 08/11/19 12:39 Active 10 ml FLUSH ASDIRECTED PRN Sodium Chloride 0.9% [Saline Flush] Med 08/11/19 12:39 Active 2.5 ml FLUSH ASDIRECTED PRN Saline Lock Insert [OM.PC] Stat Oth 08/11/19 12:39 Ordered Resuscitation Status Routine Resus Stat 08/11/19 18:12 Ordered Medication Orders Heparin Sodium (Porcine) (Heparin Sodium) 5,000 units SUBCUT Q8H VITALY Sodium Chloride (Normal Saline) 1,000 mls @ 75 mls/hr IV STAT VITALY Nitroglycerin (Nitrostat) 0.4 mg SL Q5M PRN PRN Reason: Chest Pain Last Admin: 08/11/19 15:10 Dose: 0.4 mg Sodium Chloride (Saline Flush) 10 ml FLUSH ASDIRECTED PRN PRN Reason: Keep Vein Open Last Admin: 08/11/19 12:55 Dose: 10 ml Sodium Chloride (Saline Flush) 2.5 ml FLUSH ASDIRECTED PRN PRN Reason: Keep Vein Open Last Admin: 08/11/19 12:54 Dose: 2.5 ml Assessment/Plan Comment:: Assessment: 1. Right upper quadrant abdominal pain. 2. Nausea and vomiting. 3. Chronic kidney disease. 4. Past medical history of hyperlipidemia, hypertension and asthma. Plan: 1. For RUQ abdominal pain, CT abdomen showed distended gallbladder and prominent common bile duct indicating potential choledocholithiasis and acute cholecystitis. Will order HIDA scan. Will keep patient NPO and IV NS 75 cc/hr. For pain, IV dilaudid 0.5 mg q4 for mild pain or IV dilaudid 1 mg q4 for moderate pain. For nausea, will start IV metoclopramide 5 mg q6h prn. Will consult general surgery, appreciate recommendations. <Ryan Rashid - Last Filed: 08/13/19 13:21> H&P History of Present Illness - General Admit Problem/Dx: Admission Diagnosis/Problem Admission Diagnosis/Problem Abdominal pain Exam - Vital Signs Vital Signs: Last Vital Signs Temp 36.2 C 08/13/19 12:00 Pulse 108 H 08/13/19 12:00 Resp 16 08/13/19 12:00 BP 146/71 H 08/13/19 12:00 Pulse Ox 91 L 08/13/19 12:00 - Patient Data Lab Results Last 24 hrs: Laboratory Results - last 24 hr 08/13/19 08/13/19 Range/Units 05:35 05:35 WBC 8.15 (4.0-11.0) K/uL RBC 3.57 L (4.30-5.90) M/uL Hgb 10.7 L (12.0-16.0) g/dL Hct 34.4 L (36.0-46.0) % MCV 96.4 (80.0-98.0) fL MCH 30.0 (27.0-32.0) pg MCHC 31.1 (31.0-37.0) g/dL RDW Std Deviation 50.2 (28.0-62.0) fl RDW Coeff of Bebeto 14 (11.0-15.0) % Plt Count 134 L (150-400) K/uL MPV 9.00 (7.40-12.00) fL Neut % (Auto) 85.2 H (48.0-80.0) % Lymph % (Auto) 7.2 L (16.0-40.0) % Carver % (Auto) 7.5 (0.0-15.0) % Eos % (Auto) 0.0 (0.0-7.0) % Baso % (Auto) 0.1 (0.0-1.5) % Neut # (Auto) 6.9 H (1.4-5.7) K/uL Lymph # (Auto) 0.6 (0.6-2.4) K/uL Carver # (Auto) 0.6 (0.0-0.8) K/uL Eos # (Auto) 0.0 (0.0-0.7) K/uL Baso # (Auto) 0.0 (0.0-0.1) K/uL Nucleated RBC % 0.0 /100WBC Nucleated RBCs # 0 K/uL Sodium 143 (136-145) mmol/L Potassium 4.1 (3.5-5.1) mmol/L Chloride 112 H (98-107) mmol/L Carbon Dioxide 21.1 (21.0-32.0) mmol/L BUN 26 H (7.0-18.0) mg/dL Creatinine 0.9 (0.6-1.0) mg/dL Est Cr Clr Drug Dosing 43.77 mL/min Estimated GFR (MDRD) > 60.0 ml/min Glucose 104 (74-106) mg/dL Calcium 7.9 L (8.5-10.1) mg/dL Total Bilirubin 0.5 (0.2-1.0) mg/dL AST 46 H (15-37) IU/L ALT 14 (14-63) IU/L Alkaline Phosphatase 85 (46-116) U/L Total Protein 6.2 L (6.4-8.2) g/dL Albumin 3.1 L (3.4-5.0) g/dL Globulin 3.1 (2.6-4.0) g/dL Albumin/Globulin Ratio 1.0 (0.9-1.6) Result Diagrams: 08/13/19 05:35 08/13/19 05:35 Orders Last 24hrs: Active Orders 24 hr Category Date Time Status EKG 12 Lead [EKG Documentation Completion] [] URGENT Care 08/13/19 11:28 Active Telemetry Monitoring [Cardiac Monitoring] [RC] . Care 08/13/19 10:51 Active DIRECTED UA W/MICROSCOPIC [URIN] Routine Lab 08/13/19 10:50 Ordered Ketorolac [Toradol] Med 08/13/19 12:23 Active 30 mg IVPUSH Q6H PRN Lidocaine 5% [Lidoderm 5%] Med 08/13/19 12:45 Active 700 mg TOP Q24H Verapamil [Calan SR] Med 08/12/19 23:31 Active 120 mg PO DAILY PRN Medication Orders Benzocaine/Menthol (Cepacol Sore Throat) 1 lozenge MUCMEM Q2H PRN PRN Reason: Sore Throat Last Admin: 08/12/19 11:23 Dose: 1 lozenge Carbidopa/Levodopa (Sinemet 25-100 Mg) 1 tab PO TID VITALY Last Admin: 08/13/19 05:42 Dose: 1 tab Admin: 08/12/19 22:31 Dose: 1 tab Admin: 08/12/19 13:40 Dose: 1 tab Admin: 08/12/19 06:47 Dose: 1 tab Heparin Sodium (Porcine) (Heparin Sodium) 5,000 units SUBCUT Q8H VITALY Last Admin: 08/13/19 10:56 Dose: 5,000 units Admin: 08/13/19 02:51 Dose: 5,000 units Admin: 08/12/19 18:27 Dose: 5,000 units Admin: 08/12/19 11:19 Dose: 5,000 units Admin: 08/12/19 02:53 Dose: 5,000 units Admin: 08/11/19 20:19 Dose: 5,000 units Hydromorphone HCl (Dilaudid) 1 mg IVPUSH Q4H PRN PRN Reason: Other Last Admin: 08/13/19 08:07 Dose: 1 mg Admin: 08/13/19 03:36 Dose: 1 mg Admin: 08/12/19 16:29 Dose: 1 mg Sodium Chloride (Normal Saline) 1,000 mls @ 75 mls/hr IV STAT VITALY Last Admin: 08/12/19 22:32 Dose: 75 mls/hr Infusion: 08/12/19 22:32 Dose: 75 mls/hr Admin: 08/12/19 09:19 Dose: 75 mls/hr Infusion: 08/12/19 09:19 Dose: 75 mls/hr Admin: 08/11/19 20:17 Dose: 75 mls/hr Ketorolac Tromethamine (Toradol) 30 mg IVPUSH Q6H PRN PRN Reason: Pain Stop: 08/18/19 12:24 Last Admin: 08/13/19 12:34 Dose: 30 mg Lidocaine (Lidoderm 5%) 700 mg TOP Q24H [facility] Metoclopramide HCl (Reglan) 5 mg IVPUSH Q6H PRN PRN Reason: Nausea Last Admin: 08/12/19 16:29 Dose: 5 mg Admin: 08/12/19 02:46 Dose: 5 mg Nitroglycerin (Nitrostat) 0.4 mg SL Q5M PRN PRN Reason: Chest Pain Last Admin: 08/11/19 15:10 Dose: 0.4 mg Sodium Chloride (Saline Flush) 10 ml FLUSH ASDIRECTED PRN PRN Reason: Keep Vein Open Last Admin: 08/11/19 12:55 Dose: 10 ml Sodium Chloride (Saline Flush) 2.5 ml FLUSH ASDIRECTED PRN PRN Reason: Keep Vein Open Last Admin: 08/11/19 12:54 Dose: 2.5 ml Verapamil HCl (Calan Sr) 120 mg PO DAILY PRN PRN Reason: head pressure Assessment/Plan Comment:: I performed a history and physical exam of the patient and discussed management with resident. I have reviewed the residents note and agree with documented findings and plan unless otherwise specified in my note.
[2019-08-11] MEDS: Sodium Chloride 0.9% 1,000 ML IV SCH (20:17)
[2019-08-11] MEDS: Heparin Sodium 5,000 Units/ML Vial SUBCUT SCH (20:19)
[2019-08-11] MEDS: HYDROmorphone 2 MG/ML Syringe IVPUSH PRN (22:38)
[2019-08-12] MEDS: Metoclopramide 10 MG/2 ML SDV IVPUSH PRN ×2 (02:46→16:29)
[2019-08-12] MEDS: HYDROmorphone 2 MG/ML Syringe IVPUSH PRN ×6 (02:48→20:37)
[2019-08-12] MEDS: Heparin Sodium 5,000 Units/ML Vial SUBCUT SCH ×3 (02:53→18:27)
[2019-08-12] MEDS: Carbidopa/Levodopa 25-100 MG Tab PO SCH ×3 (06:47→22:31)
[2019-08-12 06:51] LABS: CARBON DIOXIDE,CO2 23.6 mmol/L (21.0-32.0); POTASSIUM,K 4.7 mmol/L (3.5-5.1)
--- NOTE | 2019-08-12 06:55 | PCM.CONS ---
<JnMayyaniv - Last Filed: 08/12/19 06:50> H&P History of Present Illness - General Date of Service: 08/12/19 Admit Problem/Dx: Admission Diagnosis/Problem Admission Diagnosis/Problem Abdominal pain Source of Information: Patient History Limitations: Reports: No Limitations - History of Present Illness Initial Comments - Free Text/Narative: Tahira Crabtree is a 78 yr old female that presented to the ED yesterday with acute onset right upper quadrant pain. She originally thought that it was pleurisy, but it didn't go away and didn't get better so she presented to the ED. She ate breakfast yesterday and didn't have any pain after that. She has always been able to eat what she wants without any issues. She has associated nausea and vomiting. Denies diarrhea, constipation, fever, and chills. She does have a history of GERD, which is well controlled with PPIs. Onset of Symptoms: Reports: Sudden Duration of Symptoms: Reports: Constant Location: Reports: Abdomen Improves with: Reports: Medication, Rest Worsens with: Reports: Movement chest Pain Score (Numeric/FACES): 3 - Related Data Allergies/Adverse Reactions: Allergies Allergy/AdvReac Type Severity Reaction Status Date / Time codeine Allergy Hallucinati Verified 06/29/19 11:46 ons influenza virus vaccine, Allergy Syncope Verified 06/29/19 11:46 specific [Influenza Virus Vacc,Specific] Home Medications: Home Meds Magnesium 500 mg PO BEDTIME 02/22/18 [History] Verapamil HCl [Verapamil Sr] 120 mg PO DAILY PRN 02/22/18 [History] Carbidopa/Levodopa [Carbidopa-Levodopa 25-100 Tab] 25 - 100 mg PO TID 06/29/19 [ History] Gabapentin [Neurontin] 100 mg PO BEDTIME 06/29/19 [History] Ibuprofen [Advil] 200 mg PO . NEEDED PRN 06/29/19 [History] Omeprazole 20 mg PO DAILY 06/29/19 [History] Cephalexin [Keflex] 500 mg PO BID #10 capsule 06/30/19 [Rx] Past Medical History HEENT History: Reports: None Cardiovascular History: Reports: High Cholesterol, Hypertension Respiratory History: Reports: Asthma Gastrointestinal History: Reports: None Genitourinary History: Reports: None EDITOR PUBLICATIONS History: Reports: Musculoskeletal History: Reports: Other (See Below) Other Musculoskeletal History: sciatica Neurological History: Reports: Other (See Below) Other Neuro History: restless leg syndrome Psychiatric History: Reports: None Endocrine/Metabolic History: Reports: None Hematologic History: Reports: None Immunologic History: Reports: None Oncologic (Cancer) History: Reports: None Dermatologic History: Reports: Other (See Below) Other Dermatologic History: skin cancer nose - Infectious Disease History Infectious Disease History: Reports: Chicken Pox, Measles, Mumps - Past Surgical History Head Surgeries/Procedures: Reports: None HEENT Surgical History: Reports: Other (See Below) Female Surgical History: Reports: Section, Hysterectomy Social & Family History - Family History Family Medical History: Noncontributory - Tobacco Use Smoking Status *Q: Never Smoker - Caffeine Use Caffeine Use: Reports: Soda - Recreational Drug Use Recreational Drug Use: No - Living Situation & Occupation Living situation: Reports: Occupation: Retired H&P Review of Systems - Review of Systems: Review Of Systems: See Below General: Denies: Fever, Chills, Weakness, Fatigue HEENT: Denies: Dysphasia, Headaches, Post Nasal Drip, Sore Throat Pulmonary: Denies: Shortness of Breath, Wheezing, Pleuritic Chest Pain, Cough Cardiovascular: Denies: Chest Pain, Edema Gastrointestinal: Reports: Abdominal Pain, Nausea, Vomiting. Denies: Constipation, Diarrhea, Distension Genitourinary: Denies: Dysuria, Frequency, Burning Skin: Denies: Cyanosis, Jaundice Psychiatric: Reports: No Symptoms Neurological: Reports: No Symptoms Hematologic/Lymphatic: Reports: No Symptoms Immunologic: Reports: No Symptoms Exam - Exam Exam: See Below - Vital Signs Vital Signs: Last Vital Signs Temp 97.2 F 08/12/19 03:48 Pulse 87 08/12/19 03:48 Resp 17 08/12/19 03:48 BP 139/80 08/12/19 03:48 Pulse Ox 96 08/12/19 03:48 Weight: 125 lb - Exam General: Alert, Oriented HEENT: Conjunctiva Clear, EACs Clear, EOMI Neck: Supple Lungs: Clear to Auscultation, Normal Respiratory Effort Cardiovascular: Regular Rate, Regular Rhythm GI/Abdominal Exam: Normal Bowel Sounds, Soft, Non-Tender, No Distention Extremities: No Pedal Edema Skin: Warm, Dry, Intact Neuro Extensive - Mental Status: Alert, Oriented x3, Normal Mood/Affect, Normal Cognition, Memory Intact Psychiatric: Alert, Normal Affect, Normal Mood - Patient Data Lab Results Last 24 hrs: Laboratory Results - last 24 hr 08/11/19 08/11/19 08/11/19 Range/Units 12:40 12:40 12:40 WBC 5.97 (4.0-11.0) K/uL RBC 4.14 L (4.30-5.90) M/uL Hgb 12.5 (12.0-16.0) g/dL Hct 39.1 (36.0-46.0) % MCV 94.4 (80.0-98.0) fL MCH 30.2 (27.0-32.0) pg MCHC 32.0 (31.0-37.0) g/dL RDW Std Deviation 46.2 (28.0-62.0) fl RDW Coeff of Bebeto 13 (11.0-15.0) % Plt Count 165 (150-400) K/uL MPV 8.70 (7.40-12.00) fL Neut % (Auto) 55.5 (48.0-80.0) % Lymph % (Auto) 35.0 (16.0-40.0) % [place] % (Auto) 8.0 (0.0-15.0) % Eos % (Auto) 1.2 (0.0-7.0) % Baso % (Auto) 0.3 (0.0-1.5) % Neut # (Auto) 3.3 (1.4-5.7) K/uL Lymph # (Auto) 2.1 (0.6-2.4) K/uL [place] # (Auto) 0.5 (0.0-0.8) K/uL Eos # (Auto) 0.1 (0.0-0.7) K/uL Baso # (Auto) 0.0 (0.0-0.1) K/uL Nucleated RBC % 0.0 /100WBC Nucleated RBCs # 0 K/uL INR 1.00 Sodium 142 (136-145) mmol/L Potassium 3.8 (3.5-5.1) mmol/L Chloride 107 (98-107) mmol/L Carbon Dioxide 21.3 (21.0-32.0) mmol/L BUN 29 H (7.0-18.0) mg/dL Creatinine 1.3 H (0.6-1.0) mg/dL Est Cr Clr Drug Dosing 30.30 mL/min Estimated GFR (MDRD) 39.5 ml/min Glucose 152 H (74-106) mg/dL Calcium 8.8 (8.5-10.1) mg/dL Total Bilirubin 0.3 (0.2-1.0) mg/dL AST 17 (15-37) IU/L ALT 13 L (14-63) IU/L Alkaline Phosphatase 95 (46-116) U/L Troponin I < 0.050 (0.000-0.056) ng/mL Total Protein 6.9 (6.4-8.2) g/dL Albumin 3.7 (3.4-5.0) g/dL Globulin 3.2 (2.6-4.0) g/dL Albumin/Globulin Ratio 1.2 (0.9-1.6) Lipase (73-393) U/L 08/11/19 08/12/19 Range/Units 12:40 05:50 WBC 8.08 (4.0-11.0) K/uL RBC 3.78 L (4.30-5.90) M/uL Hgb 11.2 L (12.0-16.0) g/dL Hct 35.8 L (36.0-46.0) % MCV 94.7 (80.0-98.0) fL MCH 29.6 (27.0-32.0) pg MCHC 31.3 (31.0-37.0) g/dL RDW Std Deviation 47.3 (28.0-62.0) fl RDW Coeff of Bebeto 14 (11.0-15.0) % Plt Count 160 (150-400) K/uL MPV 8.90 (7.40-12.00) fL Neut % (Auto) 81.9 H (48.0-80.0) % Lymph % (Auto) 10.0 L (16.0-40.0) % [place] % (Auto) 8.0 (0.0-15.0) % Eos % (Auto) 0.0 (0.0-7.0) % Baso % (Auto) 0.1 (0.0-1.5) % Neut # (Auto) 6.6 H (1.4-5.7) K/uL Lymph # (Auto) 0.8 (0.6-2.4) K/uL [place] # (Auto) 0.7 (0.0-0.8) K/uL Eos # (Auto) 0.0 (0.0-0.7) K/uL Baso # (Auto) 0.0 (0.0-0.1) K/uL Nucleated RBC % 0.0 /100WBC Nucleated RBCs # 0 K/uL INR Sodium (136-145) mmol/L Potassium (3.5-5.1) mmol/L Chloride (98-107) mmol/L Carbon Dioxide (21.0-32.0) mmol/L BUN (7.0-18.0) mg/dL Creatinine (0.6-1.0) mg/dL Est Cr Clr Drug Dosing mL/min Estimated GFR (MDRD) ml/min Glucose (74-106) mg/dL Calcium (8.5-10.1) mg/dL Total Bilirubin (0.2-1.0) mg/dL AST (15-37) IU/L ALT (14-63) IU/L Alkaline Phosphatase (46-116) U/L Troponin I (0.000-0.056) ng/mL Total Protein (6.4-8.2) g/dL Albumin (3.4-5.0) g/dL Globulin (2.6-4.0) g/dL Albumin/Globulin Ratio (0.9-1.6) Lipase 226 (73-393) U/L Result Diagrams: 08/12/19 05:50 08/11/19 12:40 Imaging Impressions Last 24 hrs: Right upper quadrant ultrasound: No ductal dilation, no wall thickening, no CBD dilation CT abdomen and pelvis: distended gallbladder Consult PN Assessment/Plan Procedures: Procedures ASSAY OF AMYLASE (02/21/18) ASSAY OF LACTIC ACID (06/29/19) ASSAY OF LIPASE (02/21/18) ASSAY OF TROPONIN QUANT (06/29/19) BLOOD CULTURE FOR BACTERIA (06/29/19) BLOOD TYPING SEROLOGIC ABO (02/21/18) BLOOD TYPING SEROLOGIC RH(D) (02/21/18) COMPLETE CBC AUTOMATED (02/21/18) COMPLETE CBC W/AUTO DIFF WBC (06/29/19) COMPREHEN METABOLIC PANEL (06/29/19) CT ABD & PELV W/CONTRAST (06/17/18) CT ABD & PELVIS W/O CONTRAST (02/21/18) CT HEAD/BRAIN W/O DYE (06/29/19) CT NECK SPINE W/O DYE (02/21/18) CT THORAX W/O DYE (02/21/18) DRAIN/INJ JOINT/BURSA W/O US (08/29/15) DRAIN/INJ JOINT/BURSA W/O US (01/16/15) ELECTROCARDIOGRAM TRACING (06/29/19) EMERGENCY DEPT VISIT (06/29/19) EMERGENCY DEPT VISIT (06/21/19) EMERGENCY DEPT VISIT (02/21/18) EMERGENCY DEPT VISIT (02/18/18) EMERGENCY DEPT VISIT (01/01/14) GLUCOSE BLOOD TEST (06/21/19) HEMOGLOBIN (02/21/18) HYDRATE IV INFUSION ADD-ON (06/29/19) METABOLIC PANEL TOTAL CA (06/29/19) MICROBE SUSCEPTIBLE SABAS (06/29/19) OFFICE/OUTPATIENT VISIT EST (08/29/15) OFFICE/OUTPATIENT VISIT NEW (05/11/14) PROTHROMBIN TIME (06/29/19) PT EVAL LOW COMPLEX 20 MIN (06/29/19) RBC ANTIBODY IDENTIFICATION (02/21/18) RBC ANTIBODY SCREEN (02/21/18) ROUTINE VENIPUNCTURE (06/29/19) THER/PROPH/DIAG INJ IV PUSH (06/29/19) THER/PROPH/DIAG INJ SC/IM (06/22/18) TX/PRO/DX INJ SAME DRUG CRM CONSULTANT (06/29/19) URINALYSIS AUTO W/SCOPE (06/29/19) URINE BACTERIA CULTURE (06/29/19) URINE CULTURE/COLONY COUNT (06/29/19) X-RAY EXAM ABDOMEN 1 VIEW (02/21/18) X-RAY EXAM CHEST 1 VIEW (06/29/19) X-RAY EXAM CHEST 2 VIEWS (02/21/18) X-RAY EXAM NECK SPINE 2-3 VW (02/21/18) X-RAY EXAM OF ABDOMEN (01/01/14) X-RAY EXAM OF FOREARM (02/21/18) X-RAY EXAM OF HAND (10/16/14) X-RAY EXAM OF LOWER LEG (02/21/18) X-RAY EXAM OF PELVIS (02/21/18) X-RAY EXAM OF SHOULDER (06/21/19) (1) Abdominal pain SNOMED Code(s): 01605133 Code(s): R10.9 - UNSPECIFIED ABDOMINAL PAIN Current Visit: Yes Qualifiers: Abdominal location: right upper quadrant Qualified Code(s): R10.11 - Right upper quadrant pain Problem List Initiated/Reviewed/Updated: Yes Plan: -recommend HIDA scan when available -no emergent need for surgery at this time -symptom control as needed <Roger Zapien - Last Filed: 08/12/19 07:43> H&P History of Present Illness - General Admit Problem/Dx: Admission Diagnosis/Problem Admission Diagnosis/Problem Abdominal pain Exam - Vital Signs Vital Signs: Last Vital Signs Temp 97.2 F 08/12/19 03:48 Pulse 87 08/12/19 03:48 Resp 17 08/12/19 03:48 BP 139/80 08/12/19 03:48 Pulse Ox 96 08/12/19 03:48 - Patient Data Lab Results Last 24 hrs: Laboratory Results - last 24 hr 08/11/19 08/11/19 08/11/19 Range/Units 12:40 12:40 12:40 WBC 5.97 (4.0-11.0) K/uL RBC 4.14 L (4.30-5.90) M/uL Hgb 12.5 (12.0-16.0) g/dL Hct 39.1 (36.0-46.0) % MCV 94.4 (80.0-98.0) fL MCH 30.2 (27.0-32.0) pg MCHC 32.0 (31.0-37.0) g/dL RDW Std Deviation 46.2 (28.0-62.0) fl RDW Coeff of Bebeto 13 (11.0-15.0) % Plt Count 165 (150-400) K/uL MPV 8.70 (7.40-12.00) fL Neut % (Auto) 55.5 (48.0-80.0) % Lymph % (Auto) 35.0 (16.0-40.0) % [place] % (Auto) 8.0 (0.0-15.0) % Eos % (Auto) 1.2 (0.0-7.0) % Baso % (Auto) 0.3 (0.0-1.5) % Neut # (Auto) 3.3 (1.4-5.7) K/uL Lymph # (Auto) 2.1 (0.6-2.4) K/uL [place] # (Auto) 0.5 (0.0-0.8) K/uL Eos # (Auto) 0.1 (0.0-0.7) K/uL Baso # (Auto) 0.0 (0.0-0.1) K/uL Nucleated RBC % 0.0 /100WBC Nucleated RBCs # 0 K/uL INR 1.00 Sodium 142 (136-145) mmol/L Potassium 3.8 (3.5-5.1) mmol/L Chloride 107 (98-107) mmol/L Carbon Dioxide 21.3 (21.0-32.0) mmol/L BUN 29 H (7.0-18.0) mg/dL Creatinine 1.3 H (0.6-1.0) mg/dL Est Cr Clr Drug Dosing 30.30 mL/min Estimated GFR (MDRD) 39.5 ml/min Glucose 152 H (74-106) mg/dL Calcium 8.8 (8.5-10.1) mg/dL Total Bilirubin 0.3 (0.2-1.0) mg/dL AST 17 (15-37) IU/L ALT 13 L (14-63) IU/L Alkaline Phosphatase 95 (46-116) U/L Troponin I < 0.050 (0.000-0.056) ng/mL Total Protein 6.9 (6.4-8.2) g/dL Albumin 3.7 (3.4-5.0) g/dL Globulin 3.2 (2.6-4.0) g/dL Albumin/Globulin Ratio 1.2 (0.9-1.6) Lipase (73-393) U/L 08/11/19 08/12/19 08/12/19 Range/Units 12:40 05:50 05:50 WBC 8.08 (4.0-11.0) K/uL RBC 3.78 L (4.30-5.90) M/uL Hgb 11.2 L (12.0-16.0) g/dL Hct 35.8 L (36.0-46.0) % MCV 94.7 (80.0-98.0) fL MCH 29.6 (27.0-32.0) pg MCHC 31.3 (31.0-37.0) g/dL RDW Std Deviation 47.3 (28.0-62.0) fl RDW Coeff of Bebeto 14 (11.0-15.0) % Plt Count 160 (150-400) K/uL MPV 8.90 (7.40-12.00) fL Neut % (Auto) 81.9 H (48.0-80.0) % Lymph % (Auto) 10.0 L (16.0-40.0) % [place] % (Auto) 8.0 (0.0-15.0) % Eos % (Auto) 0.0 (0.0-7.0) % Baso % (Auto) 0.1 (0.0-1.5) % Neut # (Auto) 6.6 H (1.4-5.7) K/uL Lymph # (Auto) 0.8 (0.6-2.4) K/uL [place] # (Auto) 0.7 (0.0-0.8) K/uL Eos # (Auto) 0.0 (0.0-0.7) K/uL Baso # (Auto) 0.0 (0.0-0.1) K/uL Nucleated RBC % 0.0 /100WBC Nucleated RBCs # 0 K/uL INR Sodium 144 (136-145) mmol/L Potassium 4.7 (3.5-5.1) mmol/L Chloride 112 H (98-107) mmol/L Carbon Dioxide 23.6 (21.0-32.0) mmol/L BUN 29 H (7.0-18.0) mg/dL Creatinine 1.1 H (0.6-1.0) mg/dL Est Cr Clr Drug Dosing 35.81 mL/min Estimated GFR (MDRD) 47.9 ml/min Glucose 122 H (74-106) mg/dL Calcium 8.4 L (8.5-10.1) mg/dL Total Bilirubin 0.3 (0.2-1.0) mg/dL AST 25 (15-37) IU/L ALT 9 L (14-63) IU/L Alkaline Phosphatase 84 (46-116) U/L Troponin I (0.000-0.056) ng/mL Total Protein 6.2 L (6.4-8.2) g/dL Albumin 3.3 L (3.4-5.0) g/dL Globulin 2.9 (2.6-4.0) g/dL Albumin/Globulin Ratio 1.1 (0.9-1.6) Lipase 226 (73-393) U/L Result Diagrams: 08/12/19 05:50 08/12/19 05:50 Consult PN Assessment/Plan Procedures: Procedures ASSAY OF AMYLASE (02/21/18) ASSAY OF LACTIC ACID (06/29/19) ASSAY OF LIPASE (02/21/18) ASSAY OF TROPONIN QUANT (06/29/19) BLOOD CULTURE FOR BACTERIA (06/29/19) BLOOD TYPING SEROLOGIC ABO (02/21/18) BLOOD TYPING SEROLOGIC RH(D) (02/21/18) COMPLETE CBC AUTOMATED (02/21/18) COMPLETE CBC W/AUTO DIFF WBC (06/29/19) COMPREHEN METABOLIC PANEL (06/29/19) CT ABD & PELV W/CONTRAST (06/17/18) CT ABD & PELVIS W/O CONTRAST (02/21/18) CT HEAD/BRAIN W/O DYE (06/29/19) CT NECK SPINE W/O DYE (02/21/18) CT THORAX W/O DYE (02/21/18) DRAIN/INJ JOINT/BURSA W/O US (08/29/15) DRAIN/INJ JOINT/BURSA W/O US (01/16/15) ELECTROCARDIOGRAM TRACING (06/29/19) EMERGENCY DEPT VISIT (06/29/19) EMERGENCY DEPT VISIT (06/21/19) EMERGENCY DEPT VISIT (02/21/18) EMERGENCY DEPT VISIT (02/18/18) EMERGENCY DEPT VISIT (01/01/14) GLUCOSE BLOOD TEST (06/21/19) HEMOGLOBIN (02/21/18) HYDRATE IV INFUSION ADD-ON (06/29/19) METABOLIC PANEL TOTAL CA (06/29/19) MICROBE SUSCEPTIBLE SABAS (06/29/19) OFFICE/OUTPATIENT VISIT EST (08/29/15) OFFICE/OUTPATIENT VISIT NEW (05/11/14) PROTHROMBIN TIME (06/29/19) PT EVAL LOW COMPLEX 20 MIN (06/29/19) RBC ANTIBODY IDENTIFICATION (02/21/18) RBC ANTIBODY SCREEN (02/21/18) ROUTINE VENIPUNCTURE (06/29/19) THER/PROPH/DIAG INJ IV PUSH (06/29/19) THER/PROPH/DIAG INJ SC/IM (06/22/18) TX/PRO/DX INJ SAME DRUG CRM CONSULTANT (06/29/19) URINALYSIS AUTO W/SCOPE (06/29/19) URINE BACTERIA CULTURE (06/29/19) URINE CULTURE/COLONY COUNT (06/29/19) X-RAY EXAM ABDOMEN 1 VIEW (02/21/18) X-RAY EXAM CHEST 1 VIEW (06/29/19) X-RAY EXAM CHEST 2 VIEWS (02/21/18) X-RAY EXAM NECK SPINE 2-3 VW (02/21/18) X-RAY EXAM OF ABDOMEN (01/01/14) X-RAY EXAM OF FOREARM (02/21/18) X-RAY EXAM OF HAND (10/16/14) X-RAY EXAM OF LOWER LEG (02/21/18) X-RAY EXAM OF PELVIS (02/21/18) X-RAY EXAM OF SHOULDER (06/21/19) (1) Abdominal pain SNOMED Code(s): 04272997 Code(s): R10.9 - UNSPECIFIED ABDOMINAL PAIN Priority: High Current Visit : Yes Qualifiers: Abdominal location: right upper quadrant Qualified Code(s): R10.11 - Right upper quadrant pain Problem List Initiated/Reviewed/Updated: Yes Plan: Patient seen, examined and discussed with Dr. Ragsdale. On my exam this morning her abdomen is soft and nontender. Negative Angeles's sign. Active bowel sounds. Would proceed as discussed with a HIDA scan on Wednesday. At this time, no acute surgical intervention.
[2019-08-12] MEDS ORDERED: Benzocaine/Cetylpyridinium/Menthol Lozenge MUCMEM PRN (09:16)
[2019-08-12] MEDS: Sodium Chloride 0.9% 1,000 ML IV SCH ×2 (09:19→22:32)
--- NOTE | 2019-08-12 09:33 | PCM.PN ---
<Murphy Seaed M - Last Filed: 08/12/19 12:17> - General Info Date of Service: 08/12/19 Subjective Update: Reports feeling better this morning and having much less pain as well as feeling less nauseous. Has been urinating. - Patient Data Vitals - Most Recent: Last Vital Signs Temp 97.2 F 08/12/19 03:48 Pulse 87 08/12/19 03:48 Resp 17 08/12/19 03:48 BP 139/80 08/12/19 03:48 Pulse Ox 96 08/12/19 03:48 Weight - Most Recent: 56.699 kg I&O - Last 24 Hours: Intake & Output 08/11/19 08/12/19 08/12/19 22:59 06:59 14:59 Intake Total 0 Output Total 450 Balance -450 Lab Results Last 24 Hours: Laboratory Results - last 24 hr 08/11/19 08/11/19 08/11/19 Range/Units 12:40 12:40 12:40 WBC 5.97 (4.0-11.0) K/uL RBC 4.14 L (4.30-5.90) M/uL Hgb 12.5 (12.0-16.0) g/dL Hct 39.1 (36.0-46.0) % MCV 94.4 (80.0-98.0) fL MCH 30.2 (27.0-32.0) pg MCHC 32.0 (31.0-37.0) g/dL RDW Std Deviation 46.2 (28.0-62.0) fl RDW Coeff of Bebeto 13 (11.0-15.0) % Plt Count 165 (150-400) K/uL MPV 8.70 (7.40-12.00) fL Neut % (Auto) 55.5 (48.0-80.0) % Lymph % (Auto) 35.0 (16.0-40.0) % [place] % (Auto) 8.0 (0.0-15.0) % Eos % (Auto) 1.2 (0.0-7.0) % Baso % (Auto) 0.3 (0.0-1.5) % Neut # (Auto) 3.3 (1.4-5.7) K/uL Lymph # (Auto) 2.1 (0.6-2.4) K/uL [place] # (Auto) 0.5 (0.0-0.8) K/uL Eos # (Auto) 0.1 (0.0-0.7) K/uL Baso # (Auto) 0.0 (0.0-0.1) K/uL Nucleated RBC % 0.0 /100WBC Nucleated RBCs # 0 K/uL INR 1.00 Sodium 142 (136-145) mmol/L Potassium 3.8 (3.5-5.1) mmol/L Chloride 107 (98-107) mmol/L Carbon Dioxide 21.3 (21.0-32.0) mmol/L BUN 29 H (7.0-18.0) mg/dL Creatinine 1.3 H (0.6-1.0) mg/dL Est Cr Clr Drug Dosing 30.30 mL/min Estimated GFR (MDRD) 39.5 ml/min Glucose 152 H (74-106) mg/dL Calcium 8.8 (8.5-10.1) mg/dL Total Bilirubin 0.3 (0.2-1.0) mg/dL AST 17 (15-37) IU/L ALT 13 L (14-63) IU/L Alkaline Phosphatase 95 (46-116) U/L Troponin I < 0.050 (0.000-0.056) ng/mL Total Protein 6.9 (6.4-8.2) g/dL Albumin 3.7 (3.4-5.0) g/dL Globulin 3.2 (2.6-4.0) g/dL Albumin/Globulin Ratio 1.2 (0.9-1.6) Lipase (73-393) U/L 08/11/19 08/12/19 08/12/19 Range/Units 12:40 05:50 05:50 WBC 8.08 (4.0-11.0) K/uL RBC 3.78 L (4.30-5.90) M/uL Hgb 11.2 L (12.0-16.0) g/dL Hct 35.8 L (36.0-46.0) % MCV 94.7 (80.0-98.0) fL MCH 29.6 (27.0-32.0) pg MCHC 31.3 (31.0-37.0) g/dL RDW Std Deviation 47.3 (28.0-62.0) fl RDW Coeff of Bebeto 14 (11.0-15.0) % Plt Count 160 (150-400) K/uL MPV 8.90 (7.40-12.00) fL Neut % (Auto) 81.9 H (48.0-80.0) % Lymph % (Auto) 10.0 L (16.0-40.0) % [place] % (Auto) 8.0 (0.0-15.0) % Eos % (Auto) 0.0 (0.0-7.0) % Baso % (Auto) 0.1 (0.0-1.5) % Neut # (Auto) 6.6 H (1.4-5.7) K/uL Lymph # (Auto) 0.8 (0.6-2.4) K/uL [place] # (Auto) 0.7 (0.0-0.8) K/uL Eos # (Auto) 0.0 (0.0-0.7) K/uL Baso # (Auto) 0.0 (0.0-0.1) K/uL Nucleated RBC % 0.0 /100WBC Nucleated RBCs # 0 K/uL INR Sodium 144 (136-145) mmol/L Potassium 4.7 (3.5-5.1) mmol/L Chloride 112 H (98-107) mmol/L Carbon Dioxide 23.6 (21.0-32.0) mmol/L BUN 29 H (7.0-18.0) mg/dL Creatinine 1.1 H (0.6-1.0) mg/dL Est Cr Clr Drug Dosing 35.81 mL/min Estimated GFR (MDRD) 47.9 ml/min Glucose 122 H (74-106) mg/dL Calcium 8.4 L (8.5-10.1) mg/dL Total Bilirubin 0.3 (0.2-1.0) mg/dL AST 25 (15-37) IU/L ALT 9 L (14-63) IU/L Alkaline Phosphatase 84 (46-116) U/L Troponin I (0.000-0.056) ng/mL Total Protein 6.2 L (6.4-8.2) g/dL Albumin 3.3 L (3.4-5.0) g/dL Globulin 2.9 (2.6-4.0) g/dL Albumin/Globulin Ratio 1.1 (0.9-1.6) Lipase 226 (73-393) U/L Med Orders - Current: Current Medications Benzocaine/Menthol (Cepacol Sore Throat) 1 lozenge MUCMEM Q2H PRN PRN Reason: Sore Throat Carbidopa/Levodopa (Sinemet 25-100 Mg) 1 tab PO TID [facility] Last Admin: 08/12/19 06:47 Dose: 1 tab Heparin Sodium (Porcine) (Heparin Sodium) 5,000 units SUBCUT Q8H [facility] Last Admin: 08/12/19 02:53 Dose: 5,000 units Hydromorphone HCl (Dilaudid) 0.5 mg IVPUSH Q4H PRN PRN Reason: Other Last Admin: 08/12/19 06:50 Dose: 0.5 mg Hydromorphone HCl (Dilaudid) 1 mg IVPUSH Q4H PRN PRN Reason: Other Sodium Chloride (Normal Saline) 1,000 mls @ 75 mls/hr IV STAT [facility] Last Admin: 08/12/19 09:19 Dose: 75 mls/hr Metoclopramide HCl (Reglan) 5 mg IVPUSH Q6H PRN PRN Reason: Nausea Last Admin: 08/12/19 02:46 Dose: 5 mg Nitroglycerin (Nitrostat) 0.4 mg SL Q5M PRN PRN Reason: Chest Pain Last Admin: 08/11/19 15:10 Dose: 0.4 mg Sodium Chloride (Saline Flush) 10 ml FLUSH ASDIRECTED PRN PRN Reason: Keep Vein Open Last Admin: 08/11/19 12:55 Dose: 10 ml Sodium Chloride (Saline Flush) 2.5 ml FLUSH ASDIRECTED PRN PRN Reason: Keep Vein Open Last Admin: 08/11/19 12:54 Dose: 2.5 ml Verapamil HCl (Calan Sr) 120 mg PO DAILY PRN PRN Reason: head pressure Discontinued Medications Aspirin (Aspirin) 324 mg PO ONETIME ONE Stop: 08/11/19 12:49 Last Admin: 08/11/19 12:53 Dose: 324 mg Hydromorphone HCl (Dilaudid) 1 mg IVPUSH ONETIME ONE Stop: 08/11/19 17:28 Last Admin: 08/11/19 17:35 Dose: 1 mg Sodium Chloride (Normal Saline) 500 mls @ 999 mls/hr IV STAT [facility] Last Admin: 08/11/19 12:56 Dose: 999 mls/hr Sodium Chloride (Normal Saline) 1,000 mls @ 999 mls/hr IV .Bolus ONE Stop: 08/11/19 16:28 Last Admin: 08/11/19 15:33 Dose: 999 mls/hr Sodium Chloride (Normal Saline) 1,000 mls @ 125 mls/hr IV STAT [facility] Last Admin: 08/11/19 17:35 Dose: 125 mls/hr Ketorolac Tromethamine (Toradol) 15 mg IVPUSH ONETIME ONE Stop: 08/11/19 12:54 Last Admin: 08/11/19 12:58 Dose: 15 mg Ketorolac Tromethamine (Toradol) 30 mg IVPUSH ONETIME ONE Stop: 08/11/19 19:25 Last Admin: 08/11/19 20:20 Dose: 30 mg Lorazepam (Ativan) 0.5 mg IVPUSH STAT [facility] Stop: 08/11/19 15:22 Last Admin: 08/11/19 15:25 Dose: 0.5 mg Morphine Sulfate (Morphine) 2 mg IVPUSH ONETIME ONE Stop: 08/11/19 14:09 Last Admin: 08/11/19 14:12 Dose: 2 mg Ondansetron HCl (Zofran) 4 mg IVPUSH ONETIME ONE Stop: 08/11/19 14:10 Last Admin: 08/11/19 14:12 Dose: 4 mg Ondansetron HCl (Zofran) Confirm Administered Dose 4 mg .ROUTE .STK-MED ONE Stop: 08/11/19 14:18 Last Admin: 08/11/19 14:22 Dose: Not Given Ondansetron HCl (Zofran) 4 mg IVPUSH ONETIME ONE Stop: 08/11/19 14:19 Last Admin: 08/11/19 14:18 Dose: 4 mg Promethazine HCl (Phenergan) 25 mg IM ONETIME ONE Stop: 08/11/19 14:52 Last Admin: 08/11/19 14:56 Dose: 25 mg - Exam General: Alert, Oriented, Cooperative, No Acute Distress Lungs: Clear to Auscultation, Normal Respiratory Effort Cardiovascular: Regular Rate, Regular Rhythm GI/Abdominal Exam: Normal Bowel Sounds, Soft, No Distention, Other (mild ttp in RUQ) - Problem List Review Problem List Initiated/Reviewed/Updated: Yes - My Orders Last 24 Hours: My Active Orders 08/11/19 18:12 Oxygen Therapy [RC] PRN Up With Assistance [RC] ASDIRECTED VTE/DVT Education [RC] PER UNIT ROUTINE Vital Signs [RC] Q4H Resuscitation Status Routine 08/11/19 18:15 Heparin Sodium 5,000 units SUBCUT Q8H Sodium Chloride 0.9% [Normal Saline] 1,000 ml IV STAT 08/11/19 18:37 HYDROmorphone [Dilaudid] 0.5 mg IVPUSH Q4H PRN 08/11/19 18:39 HYDROmorphone [Dilaudid] 1 mg IVPUSH Q4H PRN 08/11/19 18:40 Metoclopramide [Reglan] 5 mg IVPUSH Q6H PRN 08/11/19 18:48 Consult to Physician [CONS] Stat HIDA with EF [Cholescintigraphy w Pharm Int] [NM] Urgent 08/11/19 18:52 Notify Provider Consults [RC] ASDIRECTED 08/11/19 Dinner Nothing per Oral Now Diet [DIET] 08/12/19 09:16 Benzocaine/Cetylpyrd/Menthol [Cepacol Sore Throat] 1 lozenge MUCMEM Q2H PRN - Plan Plan:: Assessment: 1. Right upper quadrant abdominal pain, improved. 2. Nausea and vomiting, improved. 3. Chronic kidney disease. 4. Past medical history of hyperlipidemia, hypertension and asthma. Plan: 1. For RUQ abdominal pain, CT abdomen showed distended gallbladder and prominent common bile duct indicating potential choledocholithiasis and acute cholecystitis. General surgery on board and recommended HIDA scan. No surgical intervention at this current time. For pain, continue IV dilaudid 0.5 mg q4 for mild pain or IV dilaudid 1 mg q4 for moderate pain. For nausea, continue IV metoclopramide 5 mg q6h prn. NPO, water sips okay. Will continue to monitor. <Ryan Rashid - Last Filed: 08/13/19 13:24> - Patient Data Vitals - Most Recent: Last Vital Signs Temp 36.2 C 08/13/19 12:00 Pulse 108 H 08/13/19 12:00 Resp 16 08/13/19 12:00 BP 146/71 H 08/13/19 12:00 Pulse Ox 91 L 08/13/19 12:00 I&O - Last 24 Hours: Intake & Output 08/12/19 08/13/19 08/13/19 22:59 06:59 14:59 Intake Total 200 869 Output Total 600 350 Balance -400 519 Lab Results Last 24 Hours: Laboratory Results - last 24 hr 08/13/19 08/13/19 Range/Units 05:35 05:35 WBC 8.15 (4.0-11.0) K/uL RBC 3.57 L (4.30-5.90) M/uL Hgb 10.7 L (12.0-16.0) g/dL Hct 34.4 L (36.0-46.0) % MCV 96.4 (80.0-98.0) fL MCH 30.0 (27.0-32.0) pg MCHC 31.1 (31.0-37.0) g/dL RDW Std Deviation 50.2 (28.0-62.0) fl RDW Coeff of Bebeto 14 (11.0-15.0) % Plt Count 134 L (150-400) K/uL MPV 9.00 (7.40-12.00) fL Neut % (Auto) 85.2 H (48.0-80.0) % Lymph % (Auto) 7.2 L (16.0-40.0) % [place] % (Auto) 7.5 (0.0-15.0) % Eos % (Auto) 0.0 (0.0-7.0) % Baso % (Auto) 0.1 (0.0-1.5) % Neut # (Auto) 6.9 H (1.4-5.7) K/uL Lymph # (Auto) 0.6 (0.6-2.4) K/uL [place] # (Auto) 0.6 (0.0-0.8) K/uL Eos # (Auto) 0.0 (0.0-0.7) K/uL Baso # (Auto) 0.0 (0.0-0.1) K/uL Nucleated RBC % 0.0 /100WBC Nucleated RBCs # 0 K/uL Sodium 143 (136-145) mmol/L Potassium 4.1 (3.5-5.1) mmol/L Chloride 112 H (98-107) mmol/L Carbon Dioxide 21.1 (21.0-32.0) mmol/L BUN 26 H (7.0-18.0) mg/dL Creatinine 0.9 (0.6-1.0) mg/dL Est Cr Clr Drug Dosing 43.77 mL/min Estimated GFR (MDRD) > 60.0 ml/min Glucose 104 (74-106) mg/dL Calcium 7.9 L (8.5-10.1) mg/dL Total Bilirubin 0.5 (0.2-1.0) mg/dL AST 46 H (15-37) IU/L ALT 14 (14-63) IU/L Alkaline Phosphatase 85 (46-116) U/L Total Protein 6.2 L (6.4-8.2) g/dL Albumin 3.1 L (3.4-5.0) g/dL Globulin 3.1 (2.6-4.0) g/dL Albumin/Globulin Ratio 1.0 (0.9-1.6) Med Orders - Current: Current Medications Benzocaine/Menthol (Cepacol Sore Throat) 1 lozenge MUCMEM Q2H PRN PRN Reason: Sore Throat Last Admin: 08/12/19 11:23 Dose: 1 lozenge Carbidopa/Levodopa (Sinemet 25-100 Mg) 1 tab PO TID [facility] Last Admin: 08/13/19 05:42 Dose: 1 tab Heparin Sodium (Porcine) (Heparin Sodium) 5,000 units SUBCUT Q8H [facility] Last Admin: 08/13/19 10:56 Dose: 5,000 units Hydromorphone HCl (Dilaudid) 1 mg IVPUSH Q4H PRN PRN Reason: Other Last Admin: 08/13/19 08:07 Dose: 1 mg Sodium Chloride (Normal Saline) 1,000 mls @ 75 mls/hr IV STAT [facility] Last Admin: 08/12/19 22:32 Dose: 75 mls/hr Ketorolac Tromethamine (Toradol) 30 mg IVPUSH Q6H PRN PRN Reason: Pain Stop: 08/18/19 12:24 Last Admin: 08/13/19 12:34 Dose: 30 mg Lidocaine (Lidoderm 5%) 700 mg TOP Q24H [facility] Metoclopramide HCl (Reglan) 5 mg IVPUSH Q6H PRN PRN Reason: Nausea Last Admin: 08/12/19 16:29 Dose: 5 mg Nitroglycerin (Nitrostat) 0.4 mg SL Q5M PRN PRN Reason: Chest Pain Last Admin: 08/11/19 15:10 Dose: 0.4 mg Sodium Chloride (Saline Flush) 10 ml FLUSH ASDIRECTED PRN PRN Reason: Keep Vein Open Last Admin: 08/11/19 12:55 Dose: 10 ml Sodium Chloride (Saline Flush) 2.5 ml FLUSH ASDIRECTED PRN PRN Reason: Keep Vein Open Last Admin: 08/11/19 12:54 Dose: 2.5 ml Verapamil HCl (Calan Sr) 120 mg PO DAILY PRN PRN Reason: head pressure Discontinued Medications Aspirin (Aspirin) 324 mg PO ONETIME ONE Stop: 08/11/19 12:49 Last Admin: 08/11/19 12:53 Dose: 324 mg Diltiazem HCl (Cardizem) 20 mg PO ONETIME ONE Stop: 08/13/19 12:23 Last Admin: 08/13/19 12:34 Dose: 20 mg Hydromorphone HCl (Dilaudid) 1 mg IVPUSH ONETIME ONE Stop: 08/11/19 17:28 Last Admin: 08/11/19 17:35 Dose: 1 mg Hydromorphone HCl (Dilaudid) 0.5 mg IVPUSH Q4H PRN PRN Reason: Other Last Admin: 08/13/19 05:48 Dose: 0.5 mg Sodium Chloride (Normal Saline) 500 mls @ 999 mls/hr IV STAT [facility] Last Admin: 08/11/19 12:56 Dose: 999 mls/hr Sodium Chloride (Normal Saline) 1,000 mls @ 999 mls/hr IV .Bolus ONE Stop: 08/11/19 16:28 Last Admin: 08/11/19 15:33 Dose: 999 mls/hr Sodium Chloride (Normal Saline) 1,000 mls @ 125 mls/hr IV STAT [facility] Last Admin: 08/11/19 17:35 Dose: 125 mls/hr Ketorolac Tromethamine (Toradol) 15 mg IVPUSH ONETIME ONE Stop: 08/11/19 12:54 Last Admin: 08/11/19 12:58 Dose: 15 mg Ketorolac Tromethamine (Toradol) 30 mg IVPUSH ONETIME ONE Stop: 08/11/19 19:25 Last Admin: 08/11/19 20:20 Dose: 30 mg Ketorolac Tromethamine (Toradol) 30 mg IVPUSH ONETIME ONE Stop: 08/12/19 18:32 Last Admin: 08/12/19 18:57 Dose: 30 mg Lorazepam (Ativan) 0.5 mg IVPUSH STAT [facility] Stop: 08/11/19 15:22 Last Admin: 08/11/19 15:25 Dose: 0.5 mg Morphine Sulfate (Morphine) 2 mg IVPUSH ONETIME ONE Stop: 08/11/19 14:09 Last Admin: 08/11/19 14:12 Dose: 2 mg Ondansetron HCl (Zofran) 4 mg IVPUSH ONETIME ONE Stop: 08/11/19 14:10 Last Admin: 08/11/19 14:12 Dose: 4 mg Ondansetron HCl (Zofran) Confirm Administered Dose 4 mg .ROUTE .STK-MED ONE Stop: 08/11/19 14:18 Last Admin: 08/11/19 14:22 Dose: Not Given Ondansetron HCl (Zofran) 4 mg IVPUSH ONETIME ONE Stop: 08/11/19 14:19 Last Admin: 08/11/19 14:18 Dose: 4 mg Promethazine HCl (Phenergan) 25 mg IM ONETIME ONE Stop: 08/11/19 14:52 Last Admin: 08/11/19 14:56 Dose: 25 mg - My Orders Last 24 Hours: My Active Orders 08/12/19 23:31 Verapamil [Calan SR] 120 mg PO DAILY PRN 08/13/19 10:50 UA W/MICROSCOPIC [URIN] Routine 08/13/19 10:51 Telemetry Monitoring [Cardiac Monitoring] [RC] . DIRECTED 08/13/19 11:28 EKG 12 Lead [EKG Documentation Completion] [RC] URGENT 08/13/19 12:23 Ketorolac [Toradol] 30 mg IVPUSH Q6H PRN 08/13/19 12:45 Lidocaine 5% [Lidoderm 5%] 700 mg TOP Q24H - Plan Plan:: I have seen and evaluated the patient and agree with the residents note unless specified in my note
[2019-08-12] MEDS ORDERED: Ketorolac 30 MG/ML SDV IVPUSH ONE (18:31)
[2019-08-12] MEDS ORDERED: Verapamil 240 MG Tab.ER PO PRN (23:31)
[2019-08-13] MEDS: HYDROmorphone 2 MG/ML Syringe IVPUSH PRN ×6 (00:42→21:05)
[2019-08-13] MEDS: Heparin Sodium 5,000 Units/ML Vial SUBCUT SCH ×3 (02:51→18:25)
[2019-08-13] MEDS: Carbidopa/Levodopa 25-100 MG Tab PO SCH ×3 (05:42→21:03)
[2019-08-13 06:54] LABS: BLOOD UREA NITROGEN,BUN 26 mg/dL (7.0-18.0); CARBON DIOXIDE,CO2 21.1 mmol/L (21.0-32.0); CHLORIDE,CL 112 mmol/L (98-107); GLUCOSE RANDOM 104 mg/dL (74-106); POTASSIUM,K 4.1 mmol/L (3.5-5.1); SODIUM,NA 143 mmol/L (136-145)
--- NOTE | 2019-08-13 10:48 | PCM.CONSN ---
- General Info Date of Service: 08/13/19 Admission Dx/Problem (Free Text): RUQ pain with left shift. Distended gallbladder on CT scan. Subjective Update: Having more pain today yet wants to eat. Daughter states urine is darker in color and "strong" smelling. Pain Score: 7 - Review of Systems General: Reports: Weakness. Denies: Fever, Fatigue, Malaise, Chills HEENT: Reports: No Symptoms Pulmonary: Denies: Shortness of Breath, Pleuritic Chest Pain, Cough Cardiovascular: Denies: Chest Pain Gastrointestinal: Reports: Abdominal Pain. Denies: Constipation, Decreased Appetite, Diarrhea, Difficulty Swallowing, Nausea, Vomiting Genitourinary: Denies: Dysuria, Frequency, Burning, Pain, Urgency Musculoskeletal: Denies: Neck Pain, Shoulder Pain, Back Pain Skin: Denies: Cyanosis, Jaundice, Mottled, Pallor Neurological: Denies: Confusion, Dizziness, Headache Psychiatric: Reports: No Symptoms - Patient Data Vitals - Most Recent: Last Vital Signs Temp 97.4 F 08/13/19 07:35 Pulse 110 H 08/13/19 07:35 Resp 16 08/13/19 07:38 BP 117/67 08/13/19 07:35 Pulse Ox 94 L 08/13/19 08:00 Weight - Most Recent: 125 lb I&O - Last 24 Hours: Intake & Output 08/12/19 08/13/19 08/13/19 19:59 03:59 11:59 Intake Total 200 869 Output Total 600 350 Balance -400 519 Lab Results Last 24 Hours: Laboratory Results - last 24 hr 08/13/19 08/13/19 Range/Units 05:35 05:35 WBC 8.15 (4.0-11.0) K/uL RBC 3.57 L (4.30-5.90) M/uL Hgb 10.7 L (12.0-16.0) g/dL Hct 34.4 L (36.0-46.0) % MCV 96.4 (80.0-98.0) fL MCH 30.0 (27.0-32.0) pg MCHC 31.1 (31.0-37.0) g/dL RDW Std Deviation 50.2 (28.0-62.0) fl RDW Coeff of Bebeto 14 (11.0-15.0) % Plt Count 134 L (150-400) K/uL MPV 9.00 (7.40-12.00) fL Neut % (Auto) 85.2 H (48.0-80.0) % Lymph % (Auto) 7.2 L (16.0-40.0) % [place] % (Auto) 7.5 (0.0-15.0) % Eos % (Auto) 0.0 (0.0-7.0) % Baso % (Auto) 0.1 (0.0-1.5) % Neut # (Auto) 6.9 H (1.4-5.7) K/uL Lymph # (Auto) 0.6 (0.6-2.4) K/uL [place] # (Auto) 0.6 (0.0-0.8) K/uL Eos # (Auto) 0.0 (0.0-0.7) K/uL Baso # (Auto) 0.0 (0.0-0.1) K/uL Nucleated RBC % 0.0 /100WBC Nucleated RBCs # 0 K/uL Sodium 143 (136-145) mmol/L Potassium 4.1 (3.5-5.1) mmol/L Chloride 112 H (98-107) mmol/L Carbon Dioxide 21.1 (21.0-32.0) mmol/L BUN 26 H (7.0-18.0) mg/dL Creatinine 0.9 (0.6-1.0) mg/dL Est Cr Clr Drug Dosing 43.77 mL/min Estimated GFR (MDRD) > 60.0 ml/min Glucose 104 (74-106) mg/dL Calcium 7.9 L (8.5-10.1) mg/dL Total Bilirubin 0.5 (0.2-1.0) mg/dL AST 46 H (15-37) IU/L ALT 14 (14-63) IU/L Alkaline Phosphatase 85 (46-116) U/L Total Protein 6.2 L (6.4-8.2) g/dL Albumin 3.1 L (3.4-5.0) g/dL Globulin 3.1 (2.6-4.0) g/dL Albumin/Globulin Ratio 1.0 (0.9-1.6) Med Orders - Current: Current Medications Benzocaine/Menthol (Cepacol Sore Throat) 1 lozenge MUCMEM Q2H PRN PRN Reason: Sore Throat Last Admin: 08/12/19 11:23 Dose: 1 lozenge Carbidopa/Levodopa (Sinemet 25-100 Mg) 1 tab PO TID [facility] Last Admin: 08/13/19 05:42 Dose: 1 tab Heparin Sodium (Porcine) (Heparin Sodium) 5,000 units SUBCUT Q8H [facility] Last Admin: 08/13/19 02:51 Dose: 5,000 units Hydromorphone HCl (Dilaudid) 0.5 mg IVPUSH Q4H PRN PRN Reason: Other Last Admin: 08/13/19 05:48 Dose: 0.5 mg Hydromorphone HCl (Dilaudid) 1 mg IVPUSH Q4H PRN PRN Reason: Other Last Admin: 08/13/19 08:07 Dose: 1 mg Sodium Chloride (Normal Saline) 1,000 mls @ 75 mls/hr IV STAT [facility] Last Admin: 08/12/19 22:32 Dose: 75 mls/hr Metoclopramide HCl (Reglan) 5 mg IVPUSH Q6H PRN PRN Reason: Nausea Last Admin: 08/12/19 16:29 Dose: 5 mg Nitroglycerin (Nitrostat) 0.4 mg SL Q5M PRN PRN Reason: Chest Pain Last Admin: 08/11/19 15:10 Dose: 0.4 mg Sodium Chloride (Saline Flush) 10 ml FLUSH ASDIRECTED PRN PRN Reason: Keep Vein Open Last Admin: 08/11/19 12:55 Dose: 10 ml Sodium Chloride (Saline Flush) 2.5 ml FLUSH ASDIRECTED PRN PRN Reason: Keep Vein Open Last Admin: 08/11/19 12:54 Dose: 2.5 ml Verapamil HCl (Calan Sr) 120 mg PO DAILY PRN PRN Reason: head pressure Discontinued Medications Aspirin (Aspirin) 324 mg PO ONETIME ONE Stop: 08/11/19 12:49 Last Admin: 08/11/19 12:53 Dose: 324 mg Hydromorphone HCl (Dilaudid) 1 mg IVPUSH ONETIME ONE Stop: 08/11/19 17:28 Last Admin: 08/11/19 17:35 Dose: 1 mg Sodium Chloride (Normal Saline) 500 mls @ 999 mls/hr IV STAT [facility] Last Admin: 08/11/19 12:56 Dose: 999 mls/hr Sodium Chloride (Normal Saline) 1,000 mls @ 999 mls/hr IV .Bolus ONE Stop: 08/11/19 16:28 Last Admin: 08/11/19 15:33 Dose: 999 mls/hr Sodium Chloride (Normal Saline) 1,000 mls @ 125 mls/hr IV STAT [facility] Last Admin: 08/11/19 17:35 Dose: 125 mls/hr Ketorolac Tromethamine (Toradol) 15 mg IVPUSH ONETIME ONE Stop: 08/11/19 12:54 Last Admin: 08/11/19 12:58 Dose: 15 mg Ketorolac Tromethamine (Toradol) 30 mg IVPUSH ONETIME ONE Stop: 08/11/19 19:25 Last Admin: 08/11/19 20:20 Dose: 30 mg Ketorolac Tromethamine (Toradol) 30 mg IVPUSH ONETIME ONE Stop: 08/12/19 18:32 Last Admin: 08/12/19 18:57 Dose: 30 mg Lorazepam (Ativan) 0.5 mg IVPUSH STAT [facility] Stop: 08/11/19 15:22 Last Admin: 08/11/19 15:25 Dose: 0.5 mg Morphine Sulfate (Morphine) 2 mg IVPUSH ONETIME ONE Stop: 08/11/19 14:09 Last Admin: 08/11/19 14:12 Dose: 2 mg Ondansetron HCl (Zofran) 4 mg IVPUSH ONETIME ONE Stop: 08/11/19 14:10 Last Admin: 08/11/19 14:12 Dose: 4 mg Ondansetron HCl (Zofran) Confirm Administered Dose 4 mg .ROUTE .STK-MED ONE Stop: 08/11/19 14:18 Last Admin: 08/11/19 14:22 Dose: Not Given Ondansetron HCl (Zofran) 4 mg IVPUSH ONETIME ONE Stop: 08/11/19 14:19 Last Admin: 08/11/19 14:18 Dose: 4 mg Promethazine HCl (Phenergan) 25 mg IM ONETIME ONE Stop: 08/11/19 14:52 Last Admin: 08/11/19 14:56 Dose: 25 mg - Exam Quality Assessment: Supplemental Oxygen, DVT Prophylaxis. No: Urine Catheter General: Alert, Oriented, Cooperative, Mild Distress HEENT: Pupils Equal, Pupils Reactive. No: Scleral Icterus Neck: Supple Lungs: Clear to Auscultation, Normal Respiratory Effort Cardiovascular: Regular Rate, Regular Rhythm, No Murmurs, Tachycardia GI/Abdominal Exam: Normal Bowel Sounds, Soft, No Distention, No Mass, Tender ( RUQ). No: Guarding, Rigid, Rebound (Female) Exam: Deferred Back Exam: Normal Inspection Extremities: Normal Inspection, No Pedal Edema Skin: Warm, Dry, Intact Neurological: No New Focal Deficit Psy/Mental Status: Alert, Normal Affect, Normal Mood Consult PN Assessment/Plan Procedures: Procedures ASSAY OF AMYLASE (02/21/18) ASSAY OF LACTIC ACID (06/29/19) ASSAY OF LIPASE (02/21/18) ASSAY OF TROPONIN QUANT (06/29/19) BLOOD CULTURE FOR BACTERIA (06/29/19) BLOOD TYPING SEROLOGIC ABO (02/21/18) BLOOD TYPING SEROLOGIC RH(D) (02/21/18) COMPLETE CBC AUTOMATED (02/21/18) COMPLETE CBC W/AUTO DIFF WBC (06/29/19) COMPREHEN METABOLIC PANEL (06/29/19) CT ABD & PELV W/CONTRAST (06/17/18) CT ABD & PELVIS W/O CONTRAST (02/21/18) CT HEAD/BRAIN W/O DYE (06/29/19) CT NECK SPINE W/O DYE (02/21/18) CT THORAX W/O DYE (02/21/18) DRAIN/INJ JOINT/BURSA W/O US (08/29/15) DRAIN/INJ JOINT/BURSA W/O US (01/16/15) ELECTROCARDIOGRAM TRACING (06/29/19) EMERGENCY DEPT VISIT (06/29/19) EMERGENCY DEPT VISIT (06/21/19) EMERGENCY DEPT VISIT (02/21/18) EMERGENCY DEPT VISIT (02/18/18) EMERGENCY DEPT VISIT (01/01/14) GLUCOSE BLOOD TEST (06/21/19) HEMOGLOBIN (02/21/18) HYDRATE IV INFUSION ADD-ON (06/29/19) METABOLIC PANEL TOTAL CA (06/29/19) MICROBE SUSCEPTIBLE SABAS (06/29/19) OFFICE/OUTPATIENT VISIT EST (08/29/15) OFFICE/OUTPATIENT VISIT NEW (05/11/14) PROTHROMBIN TIME (06/29/19) PT EVAL LOW COMPLEX 20 MIN (06/29/19) RBC ANTIBODY IDENTIFICATION (02/21/18) RBC ANTIBODY SCREEN (02/21/18) ROUTINE VENIPUNCTURE (06/29/19) THER/PROPH/DIAG INJ IV PUSH (06/29/19) THER/PROPH/DIAG INJ SC/IM (06/22/18) TX/PRO/DX INJ SAME DRUG BOTTLE SORTER (06/29/19) URINALYSIS AUTO W/SCOPE (06/29/19) URINE BACTERIA CULTURE (06/29/19) URINE CULTURE/COLONY COUNT (06/29/19) X-RAY EXAM ABDOMEN 1 VIEW (02/21/18) X-RAY EXAM CHEST 1 VIEW (06/29/19) X-RAY EXAM CHEST 2 VIEWS (02/21/18) X-RAY EXAM NECK SPINE 2-3 VW (02/21/18) X-RAY EXAM OF ABDOMEN (01/01/14) X-RAY EXAM OF FOREARM (02/21/18) X-RAY EXAM OF HAND (10/16/14) X-RAY EXAM OF LOWER LEG (02/21/18) X-RAY EXAM OF PELVIS (02/21/18) X-RAY EXAM OF SHOULDER (06/21/19) (1) Abdominal pain SNOMED Code(s): 03369376 Code(s): R10.9 - UNSPECIFIED ABDOMINAL PAIN Priority: High Current Visit : Yes Qualifiers: Abdominal location: right upper quadrant Qualified Code(s): R10.11 - Right upper quadrant pain Assessment:: May have acalculous cholecystitis. Hopefully, HIDA scan can be done tomorrow. Problem List Initiated/Reviewed/Updated: Yes Plan: Per hospitalist team, may need to increase IV fluids. From my standpoint she could have full liquids today and NPO after midnight.
[2019-08-13] MEDS ORDERED: Diltiazem IR 30 MG Tab PO ONE (12:22)
[2019-08-13] MEDS: Ketorolac 30 MG/ML SDV IVPUSH PRN (12:34)
--- NOTE | 2019-08-13 13:02 | CR ---
Indication: Shortness of breath. Technique: Two views of the chest. Comparison: August 11, 2019. Findings: The right hemidiaphragm is elevated. Blunting of the left costophrenic angle is identified. No infiltrate or pneumothorax is identified. Impression: New tiny left pleural effusion Dictated by Brittaney Tracey MD @ Aug 13 2019 12:59PM Signed by Dr. Brittaney Tracey @ Aug 13 2019 1:00PM
[2019-08-13] MEDS: Lidocaine 5% 700 MG Patch TOP SCH (14:09)
--- NOTE | 2019-08-13 14:34 | PCM.PN ---
- General Info Date of Service: 08/13/19 Admission Dx/Problem (Free Text): Admission Diagnosis/Problem Admission Diagnosis/Problem Abdominal pain Subjective Update: continuers to have pain, requesting to eat - Review of Systems General: Reports: Fatigue. Denies: Fever, Weakness Pulmonary: Denies: Shortness of Breath, Pleuritic Chest Pain, Cough Cardiovascular: Denies: Chest Pain, Palpitations, Dyspnea on Exertion Gastrointestinal: Reports: Abdominal Pain, Decreased Appetite, Flatus. Denies: Constipation, Diarrhea, Difficulty Swallowing, Melena, Nausea, Vomiting Genitourinary: Denies: Dysuria, Frequency, Burning Neurological: Denies: Confusion, Dizziness - Patient Data Vitals - Most Recent: Last Vital Signs Temp 36.2 C 08/13/19 12:00 Pulse 108 H 08/13/19 12:00 Resp 16 08/13/19 12:00 BP 146/71 H 08/13/19 12:00 Pulse Ox 91 L 08/13/19 12:00 Weight - Most Recent: 56.699 kg I&O - Last 24 Hours: Intake & Output 08/12/19 08/13/19 08/13/19 22:59 06:59 14:59 Intake Total 200 869 Output Total 600 350 Balance -400 519 Lab Results Last 24 Hours: Laboratory Results - last 24 hr 08/13/19 08/13/19 08/13/19 Range/Units 05:35 05:35 12:45 WBC 8.15 (4.0-11.0) K/uL RBC 3.57 L (4.30-5.90) M/uL Hgb 10.7 L (12.0-16.0) g/dL Hct 34.4 L (36.0-46.0) % MCV 96.4 (80.0-98.0) fL MCH 30.0 (27.0-32.0) pg MCHC 31.1 (31.0-37.0) g/dL RDW Std Deviation 50.2 (28.0-62.0) fl RDW Coeff of Bebeto 14 (11.0-15.0) % Plt Count 134 L (150-400) K/uL MPV 9.00 (7.40-12.00) fL Neut % (Auto) 85.2 H (48.0-80.0) % Lymph % (Auto) 7.2 L (16.0-40.0) % [place] % (Auto) 7.5 (0.0-15.0) % Eos % (Auto) 0.0 (0.0-7.0) % Baso % (Auto) 0.1 (0.0-1.5) % Neut # (Auto) 6.9 H (1.4-5.7) K/uL Lymph # (Auto) 0.6 (0.6-2.4) K/uL [place] # (Auto) 0.6 (0.0-0.8) K/uL Eos # (Auto) 0.0 (0.0-0.7) K/uL Baso # (Auto) 0.0 (0.0-0.1) K/uL Nucleated RBC % 0.0 /100WBC Nucleated RBCs # 0 K/uL Sodium 143 (136-145) mmol/L Potassium 4.1 (3.5-5.1) mmol/L Chloride 112 H (98-107) mmol/L Carbon Dioxide 21.1 (21.0-32.0) mmol/L BUN 26 H (7.0-18.0) mg/dL Creatinine 0.9 (0.6-1.0) mg/dL Est Cr Clr Drug Dosing 43.77 mL/min Estimated GFR (MDRD) > 60.0 ml/min Glucose 104 (74-106) mg/dL Calcium 7.9 L (8.5-10.1) mg/dL Total Bilirubin 0.5 (0.2-1.0) mg/dL AST 46 H (15-37) IU/L ALT 14 (14-63) IU/L Alkaline Phosphatase 85 (46-116) U/L Total Protein 6.2 L (6.4-8.2) g/dL Albumin 3.1 L (3.4-5.0) g/dL Globulin 3.1 (2.6-4.0) g/dL Albumin/Globulin Ratio 1.0 (0.9-1.6) Urine Color YELLOW Urine Appearance CLEAR Urine pH 6.0 (5.0-8.0) Ur Specific [place] >= 1.030 (1.001-1.035) Urine Protein TRACE H (NEGATIVE) mg/dL Urine Glucose (UA) NEGATIVE (NEGATIVE) mg/dL Urine Ketones >=80 (NEGATIVE) mg/dL Urine Occult Blood MODERATE H (NEGATIVE) Urine Nitrite NEGATIVE (NEGATIVE) Urine Bilirubin NEGATIVE (NEGATIVE) Urine Urobilinogen 1.0 (<2.0) EU/dL Ur Leukocyte Esterase TRACE H (NEGATIVE) Urine RBC 4-8 (0-2/HPF) Urine WBC 8-12 (0-5/HPF) Ur Epithelial Cells FEW (NONE-FEW) Urine Bacteria FEW (NEGATIVE) Med Orders - Current: Current Medications Benzocaine/Menthol (Cepacol Sore Throat) 1 lozenge MUCMEM Q2H PRN PRN Reason: Sore Throat Last Admin: 08/12/19 11:23 Dose: 1 lozenge Carbidopa/Levodopa (Sinemet 25-100 Mg) 1 tab PO TID [facility] Last Admin: 08/13/19 05:42 Dose: 1 tab Heparin Sodium (Porcine) (Heparin Sodium) 5,000 units SUBCUT Q8H [facility] Last Admin: 08/13/19 10:56 Dose: 5,000 units Hydromorphone HCl (Dilaudid) 1 mg IVPUSH Q4H PRN PRN Reason: Other Last Admin: 08/13/19 08:07 Dose: 1 mg Sodium Chloride (Normal Saline) 1,000 mls @ 75 mls/hr IV STAT [facility] Last Admin: 08/12/19 22:32 Dose: 75 mls/hr Ketorolac Tromethamine (Toradol) 30 mg IVPUSH Q6H PRN PRN Reason: Pain Stop: 08/18/19 12:24 Last Admin: 08/13/19 12:34 Dose: 30 mg Lidocaine (Lidoderm 5%) 700 mg TOP Q24H [facility] Last Admin: 08/13/19 14:09 Dose: 700 mg Metoclopramide HCl (Reglan) 5 mg IVPUSH Q6H PRN PRN Reason: Nausea Last Admin: 08/12/19 16:29 Dose: 5 mg Nitroglycerin (Nitrostat) 0.4 mg SL Q5M PRN PRN Reason: Chest Pain Last Admin: 08/11/19 15:10 Dose: 0.4 mg Sodium Chloride (Saline Flush) 10 ml FLUSH ASDIRECTED PRN PRN Reason: Keep Vein Open Last Admin: 08/11/19 12:55 Dose: 10 ml Sodium Chloride (Saline Flush) 2.5 ml FLUSH ASDIRECTED PRN PRN Reason: Keep Vein Open Last Admin: 08/11/19 12:54 Dose: 2.5 ml Verapamil HCl (Calan Sr) 120 mg PO DAILY PRN PRN Reason: head pressure Discontinued Medications Aspirin (Aspirin) 324 mg PO ONETIME ONE Stop: 08/11/19 12:49 Last Admin: 08/11/19 12:53 Dose: 324 mg Diltiazem HCl (Cardizem) 20 mg PO ONETIME ONE Stop: 08/13/19 12:23 Last Admin: 08/13/19 12:34 Dose: 20 mg Hydromorphone HCl (Dilaudid) 1 mg IVPUSH ONETIME ONE Stop: 08/11/19 17:28 Last Admin: 08/11/19 17:35 Dose: 1 mg Hydromorphone HCl (Dilaudid) 0.5 mg IVPUSH Q4H PRN PRN Reason: Other Last Admin: 08/13/19 05:48 Dose: 0.5 mg Sodium Chloride (Normal Saline) 500 mls @ 999 mls/hr IV STAT [facility] Last Admin: 08/11/19 12:56 Dose: 999 mls/hr Sodium Chloride (Normal Saline) 1,000 mls @ 999 mls/hr IV .Bolus ONE Stop: 08/11/19 16:28 Last Admin: 08/11/19 15:33 Dose: 999 mls/hr Sodium Chloride (Normal Saline) 1,000 mls @ 125 mls/hr IV STAT [facility] Last Admin: 08/11/19 17:35 Dose: 125 mls/hr Ketorolac Tromethamine (Toradol) 15 mg IVPUSH ONETIME ONE Stop: 08/11/19 12:54 Last Admin: 08/11/19 12:58 Dose: 15 mg Ketorolac Tromethamine (Toradol) 30 mg IVPUSH ONETIME ONE Stop: 08/11/19 19:25 Last Admin: 08/11/19 20:20 Dose: 30 mg Ketorolac Tromethamine (Toradol) 30 mg IVPUSH ONETIME ONE Stop: 08/12/19 18:32 Last Admin: 08/12/19 18:57 Dose: 30 mg Lorazepam (Ativan) 0.5 mg IVPUSH STAT STA Stop: 08/11/19 15:22 Last Admin: 08/11/19 15:25 Dose: 0.5 mg Morphine Sulfate (Morphine) 2 mg IVPUSH ONETIME ONE Stop: 08/11/19 14:09 Last Admin: 08/11/19 14:12 Dose: 2 mg Ondansetron HCl (Zofran) 4 mg IVPUSH ONETIME ONE Stop: 08/11/19 14:10 Last Admin: 08/11/19 14:12 Dose: 4 mg Ondansetron HCl (Zofran) Confirm Administered Dose 4 mg .ROUTE .STK-MED ONE Stop: 08/11/19 14:18 Last Admin: 08/11/19 14:22 Dose: Not Given Ondansetron HCl (Zofran) 4 mg IVPUSH ONETIME ONE Stop: 08/11/19 14:19 Last Admin: 08/11/19 14:18 Dose: 4 mg Promethazine HCl (Phenergan) 25 mg IM ONETIME ONE Stop: 08/11/19 14:52 Last Admin: 08/11/19 14:56 Dose: 25 mg - Exam Quality Assessment: Supplemental Oxygen General: Alert, Oriented, Cooperative Neck: Supple, Trachea Midline Lungs: Clear to Auscultation, Normal Respiratory Effort Cardiovascular: Tachycardia. No: Regular Rhythm Extremities: Normal Inspection, Normal Range of Motion Peripheral Pulses: 3+: Posterior Tibial (R), Dorsalis Pedis (L) - Problem List & Annotations (1) Abdominal pain SNOMED Code(s): 83166491 Code(s): R10.9 - UNSPECIFIED ABDOMINAL PAIN Status: Acute Priority: High Current Visit: Yes Qualifiers: Abdominal location: right upper quadrant Qualified Code(s): R10.11 - Right upper quadrant pain (2) SVT (supraventricular tachycardia) SNOMED Code(s): 2313096 Code(s): I47.1 - SUPRAVENTRICULAR TACHYCARDIA Status: Acute Current Visit : Yes - Problem List Review Problem List Initiated/Reviewed/Updated: Yes - My Orders Last 24 Hours: My Active Orders 08/12/19 23:31 Verapamil [Calan SR] 120 mg PO DAILY PRN 08/13/19 10:51 Telemetry Monitoring [Cardiac Monitoring] [RC] . DIRECTED 08/13/19 11:28 EKG 12 Lead [EKG Documentation Completion] [RC] URGENT 08/13/19 12:23 Ketorolac [Toradol] 30 mg IVPUSH Q6H PRN 08/13/19 12:45 Lidocaine 5% [Lidoderm 5%] 700 mg TOP Q24H - Plan Plan:: continues to have pain, spoke with surgery, awaiting HIDA scan, possible Acalculous cholecystitis slight left shift, no leucocytosis or fever Will change pain regimen for better pain control For Tachycardia, patient has h/o SVT vs Afib, EKG shows SVTs Will administer a dose of Cardizem, at home takes verapamil which was held F/u On CXR, maintain oxygenation >92% via NC cont to monitor closely
[2019-08-13] MEDS ORDERED: Lactated Ringers 1,000 ML IV SCH (19:00)
[2019-08-13] MEDS ORDERED: Verapamil 240 MG Tab.ER PO SCH (21:00)
[2019-08-13] MEDS: Metoclopramide 10 MG/2 ML SDV IVPUSH PRN (21:04)
[2019-08-14] MEDS: HYDROmorphone 2 MG/ML Syringe IVPUSH PRN ×3 (02:18→11:02)
[2019-08-14] MEDS: Heparin Sodium 5,000 Units/ML Vial SUBCUT SCH ×2 (02:20→11:35)
[2019-08-14] MEDS: Carbidopa/Levodopa 25-100 MG Tab PO SCH (06:36)
[2019-08-14] MEDS: Metoclopramide 10 MG/2 ML SDV IVPUSH PRN (06:38)
[2019-08-14 06:58] LABS: BLOOD UREA NITROGEN,BUN 24 mg/dL (7.0-18.0); CARBON DIOXIDE,CO2 19.8 mmol/L (21.0-32.0); CHLORIDE,CL 108 mmol/L (98-107); GLUCOSE RANDOM 83 mg/dL (74-106); POTASSIUM,K 4.3 mmol/L (3.5-5.1); SODIUM,NA 142 mmol/L (136-145)
--- NOTE | 2019-08-14 08:06 | PCM.PN ---
- General Info Date of Service: 08/14/19 Admission Dx/Problem (Free Text): Admission Diagnosis/Problem Admission Diagnosis/Problem Abdominal pain - Patient Data Vitals - Most Recent: Last Vital Signs Temp 98.5 F 08/14/19 07:10 Pulse 101 H 08/14/19 07:10 Resp 16 08/14/19 07:10 BP 112/55 L 08/14/19 07:52 Pulse Ox 90 L 08/14/19 07:58 Weight - Most Recent: 56.699 kg I&O - Last 24 Hours: Intake & Output 08/13/19 08/14/19 08/14/19 22:59 06:59 14:59 Intake Total 900 400 Output Total 400 450 Balance 500 -50 Lab Results Last 24 Hours: Laboratory Results - last 24 hr 08/13/19 08/13/19 08/14/19 Range/Units 12:45 15:10 06:15 WBC 10.88 (4.0-11.0) K/uL RBC 3.30 L (4.30-5.90) M/uL Hgb 10.1 L (12.0-16.0) g/dL Hct 31.5 L (36.0-46.0) % MCV 95.5 (80.0-98.0) fL MCH 30.6 (27.0-32.0) pg MCHC 32.1 (31.0-37.0) g/dL RDW Std Deviation 48.6 (28.0-62.0) fl RDW Coeff of Bebeto 14 (11.0-15.0) % Plt Count 137 L (150-400) K/uL MPV 8.90 (7.40-12.00) fL Neut % (Auto) 82.2 H (48.0-80.0) % Lymph % (Auto) 8.5 L (16.0-40.0) % [place] % (Auto) 9.1 (0.0-15.0) % Eos % (Auto) 0.1 (0.0-7.0) % Baso % (Auto) 0.1 (0.0-1.5) % Neut # (Auto) 8.9 H (1.4-5.7) K/uL Lymph # (Auto) 0.9 (0.6-2.4) K/uL [place] # (Auto) 1.0 H (0.0-0.8) K/uL Eos # (Auto) 0.0 (0.0-0.7) K/uL Baso # (Auto) 0.0 (0.0-0.1) K/uL Nucleated RBC % 0.0 /100WBC Nucleated RBCs # 0 K/uL Sodium (136-145) mmol/L Potassium (3.5-5.1) mmol/L Chloride (98-107) mmol/L Carbon Dioxide (21.0-32.0) mmol/L BUN (7.0-18.0) mg/dL Creatinine (0.6-1.0) mg/dL Est Cr Clr Drug Dosing mL/min Estimated GFR (MDRD) ml/min Glucose (74-106) mg/dL Calcium (8.5-10.1) mg/dL Phosphorus (2.6-4.7) mg/dL Magnesium (1.8-2.4) mg/dL Troponin I 0.052 (0.000-0.056) ng/mL Urine Color YELLOW Urine Appearance CLEAR Urine pH 6.0 (5.0-8.0) Ur Specific [place] >= 1.030 (1.001-1.035) Urine Protein TRACE H (NEGATIVE) mg/dL Urine Glucose (UA) NEGATIVE (NEGATIVE) mg/dL Urine Ketones >=80 (NEGATIVE) mg/dL Urine Occult Blood MODERATE H (NEGATIVE) Urine Nitrite NEGATIVE (NEGATIVE) Urine Bilirubin NEGATIVE (NEGATIVE) Urine Urobilinogen 1.0 (<2.0) EU/dL Ur Leukocyte Esterase TRACE H (NEGATIVE) Urine RBC 4-8 (0-2/HPF) Urine WBC 8-12 (0-5/HPF) Ur Epithelial Cells FEW (NONE-FEW) Urine Bacteria FEW (NEGATIVE) 08/14/19 Range/Units 06:15 WBC (4.0-11.0) K/uL RBC (4.30-5.90) M/uL Hgb (12.0-16.0) g/dL Hct (36.0-46.0) % MCV (80.0-98.0) fL MCH (27.0-32.0) pg MCHC (31.0-37.0) g/dL RDW Std Deviation (28.0-62.0) fl RDW Coeff of Bebeto (11.0-15.0) % Plt Count (150-400) K/uL MPV (7.40-12.00) fL Neut % (Auto) (48.0-80.0) % Lymph % (Auto) (16.0-40.0) % [place] % (Auto) (0.0-15.0) % Eos % (Auto) (0.0-7.0) % Baso % (Auto) (0.0-1.5) % Neut # (Auto) (1.4-5.7) K/uL Lymph # (Auto) (0.6-2.4) K/uL [place] # (Auto) (0.0-0.8) K/uL Eos # (Auto) (0.0-0.7) K/uL Baso # (Auto) (0.0-0.1) K/uL Nucleated RBC % /100WBC Nucleated RBCs # K/uL Sodium 142 (136-145) mmol/L Potassium 4.3 (3.5-5.1) mmol/L Chloride 108 H (98-107) mmol/L Carbon Dioxide 19.8 L (21.0-32.0) mmol/L BUN 24 H (7.0-18.0) mg/dL Creatinine 0.9 (0.6-1.0) mg/dL Est Cr Clr Drug Dosing 43.77 mL/min Estimated GFR (MDRD) > 60.0 ml/min Glucose 83 (74-106) mg/dL Calcium 7.7 L (8.5-10.1) mg/dL Phosphorus 2.4 L (2.6-4.7) mg/dL Magnesium 1.8 (1.8-2.4) mg/dL Troponin I (0.000-0.056) ng/mL Urine Color Urine Appearance Urine pH (5.0-8.0) Ur Specific [place] (1.001-1.035) Urine Protein (NEGATIVE) mg/dL Urine Glucose (UA) (NEGATIVE) mg/dL Urine Ketones (NEGATIVE) mg/dL Urine Occult Blood (NEGATIVE) Urine Nitrite (NEGATIVE) Urine Bilirubin (NEGATIVE) Urine Urobilinogen (<2.0) EU/dL Ur Leukocyte Esterase (NEGATIVE) Urine RBC (0-2/HPF) Urine WBC (0-5/HPF) Ur Epithelial Cells (NONE-FEW) Urine Bacteria (NEGATIVE) Med Orders - Current: Current Medications Benzocaine/Menthol (Cepacol Sore Throat) 1 lozenge MUCMEM Q2H PRN PRN Reason: Sore Throat Last Admin: 08/12/19 11:23 Dose: 1 lozenge Carbidopa/Levodopa (Sinemet 25-100 Mg) 1 tab PO TID [facility] Last Admin: 08/14/19 06:36 Dose: 1 tab Heparin Sodium (Porcine) (Heparin Sodium) 5,000 units SUBCUT Q8H [facility] Last Admin: 08/14/19 02:20 Dose: 5,000 units Hydromorphone HCl (Dilaudid) 1 mg IVPUSH Q4H PRN PRN Reason: Other Last Admin: 08/14/19 06:37 Dose: 1 mg Lactated Ringer's (Ringers, Lactated) 1,000 mls @ 75 mls/hr IV ASDIRECTED [facility] Stop: 08/14/19 08:19 Last Admin: 08/13/19 19:15 Dose: 75 mls/hr Ketorolac Tromethamine (Toradol) 30 mg IVPUSH Q6H PRN PRN Reason: Pain Stop: 08/18/19 12:24 Last Admin: 08/13/19 12:34 Dose: 30 mg Lidocaine (Lidoderm 5%) 700 mg TOP Q24H [facility] Last Admin: 08/13/19 14:09 Dose: 700 mg Metoclopramide HCl (Reglan) 5 mg IVPUSH Q6H PRN PRN Reason: Nausea Last Admin: 08/14/19 06:38 Dose: 5 mg Nitroglycerin (Nitrostat) 0.4 mg SL Q5M PRN PRN Reason: Chest Pain Last Admin: 08/11/19 15:10 Dose: 0.4 mg Sodium Chloride (Saline Flush) 10 ml FLUSH ASDIRECTED PRN PRN Reason: Keep Vein Open Last Admin: 08/11/19 12:55 Dose: 10 ml Sodium Chloride (Saline Flush) 2.5 ml FLUSH ASDIRECTED PRN PRN Reason: Keep Vein Open Last Admin: 08/11/19 12:54 Dose: 2.5 ml Verapamil HCl (Calan Sr) 120 mg PO DAILY PRN PRN Reason: head pressure Verapamil HCl (Calan Sr) 120 mg PO BEDTIME [facility] Last Admin: 08/13/19 21:03 Dose: 120 mg Discontinued Medications Aspirin (Aspirin) 324 mg PO ONETIME ONE Stop: 08/11/19 12:49 Last Admin: 08/11/19 12:53 Dose: 324 mg Diltiazem HCl (Cardizem) 20 mg PO ONETIME ONE Stop: 08/13/19 12:23 Last Admin: 08/13/19 12:34 Dose: 20 mg Hydromorphone HCl (Dilaudid) 1 mg IVPUSH ONETIME ONE Stop: 08/11/19 17:28 Last Admin: 08/11/19 17:35 Dose: 1 mg Hydromorphone HCl (Dilaudid) 0.5 mg IVPUSH Q4H PRN PRN Reason: Other Last Admin: 08/13/19 05:48 Dose: 0.5 mg Sodium Chloride (Normal Saline) 500 mls @ 999 mls/hr IV STAT [facility] Last Admin: 08/11/19 12:56 Dose: 999 mls/hr Sodium Chloride (Normal Saline) 1,000 mls @ 999 mls/hr IV .Bolus ONE Stop: 08/11/19 16:28 Last Admin: 08/11/19 15:33 Dose: 999 mls/hr Sodium Chloride (Normal Saline) 1,000 mls @ 125 mls/hr IV STAT [facility] Last Admin: 08/11/19 17:35 Dose: 125 mls/hr Sodium Chloride (Normal Saline) 1,000 mls @ 75 mls/hr IV STAT [facility] Last Admin: 08/12/19 22:32 Dose: 75 mls/hr Ketorolac Tromethamine (Toradol) 15 mg IVPUSH ONETIME ONE Stop: 08/11/19 12:54 Last Admin: 08/11/19 12:58 Dose: 15 mg Ketorolac Tromethamine (Toradol) 30 mg IVPUSH ONETIME ONE Stop: 08/11/19 19:25 Last Admin: 08/11/19 20:20 Dose: 30 mg Ketorolac Tromethamine (Toradol) 30 mg IVPUSH ONETIME ONE Stop: 08/12/19 18:32 Last Admin: 08/12/19 18:57 Dose: 30 mg Lorazepam (Ativan) 0.5 mg IVPUSH STAT [facility] Stop: 08/11/19 15:22 Last Admin: 08/11/19 15:25 Dose: 0.5 mg Morphine Sulfate (Morphine) 2 mg IVPUSH ONETIME ONE Stop: 08/11/19 14:09 Last Admin: 08/11/19 14:12 Dose: 2 mg Ondansetron HCl (Zofran) 4 mg IVPUSH ONETIME ONE Stop: 08/11/19 14:10 Last Admin: 08/11/19 14:12 Dose: 4 mg Ondansetron HCl (Zofran) Confirm Administered Dose 4 mg .ROUTE .STK-MED ONE Stop: 08/11/19 14:18 Last Admin: 08/11/19 14:22 Dose: Not Given Ondansetron HCl (Zofran) 4 mg IVPUSH ONETIME ONE Stop: 08/11/19 14:19 Last Admin: 08/11/19 14:18 Dose: 4 mg Promethazine HCl (Phenergan) 25 mg IM ONETIME ONE Stop: 08/11/19 14:52 Last Admin: 08/11/19 14:56 Dose: 25 mg - Plan Plan:: continues to have pain, spoke with surgery, awaiting HIDA scan, possible Acalculous cholecystitis slight left shift, no leucocytosis or fever Will change pain regimen for better pain control For Tachycardia, patient has h/o SVT vs Afib, EKG shows SVTs Will administer a dose of Cardizem, at home takes verapamil which was held F/u On CXR, maintain oxygenation >92% via NC cont to monitor closely
[2019-08-14] MEDS: Ketorolac 30 MG/ML SDV IVPUSH PRN (08:28)
--- NOTE | 2019-08-14 10:09 | PCM.SN ---
- Free Text/Narrative Note: Patient continues to have increasing pain in the RUQ with a left pleural effusion. WBC now 10K and patient experiencing mild desaturation. Given the fact that she is now 3 days into this process, I would recommend a cholecystostomy tube by Interventional Radiology. That is not available here. This would allow her to recover and be considered for an elective cholecystectomy. Thank you.
--- NOTE | 2019-08-14 11:53 | PCM.DCSUM1 ---
Discharge Summary - Hospital Course Brief History: 78-year-old female presented to ER with complaints of RUQ abdominal pain, nausea and vomiting. She has a PMH of hyperlipidemia, HTN and asthma. Patient reports the pain started early this morning and slowly got worse as the day progressed. The pain is in the RUQ and also has pain her right shoulder. Pain is described as being sharp in nature and rated as a 10/10. She also reported having sweats. Denied fevers, shortness of breath, chest pain, diarrhea, blood in stool or blood in urine. In the ER, EKG was unremarkable, troponin was negative, CXR negative, RUQ ultrasound negative and CT chest negative. CT abdomen showed distended gallbladder and prominent common bile duct indicating potential choledocholithiasis and acute cholecystitis. General surgery was contacted by ER provider who recommended further work up with HIDA scan and is willing to be consulted on case. Patient admitted for further evaluation. Diagnosis: Stroke: No - Discharge Data Discharge Date: 08/14/19 Discharge Disposition: DC/Tfer to Acute Hospital 02 Condition: Stable - Referral to Home Health Primary Care Physician: PCP Unobtainable - Discharge Diagnosis/Problem(s) (1) Cholecystitis without calculus SNOMED Code(s): 43490842 ICD Code: K81.9 - CHOLECYSTITIS, UNSPECIFIED Status: Acute Current Visit : Yes (2) RUQ pain SNOMED Code(s): 997554165 ICD Code: R10.11 - RIGHT UPPER QUADRANT PAIN Status: Acute Current Visit : Yes (3) HTN (hypertension) SNOMED Code(s): 23471524 ICD Code: I10 - ESSENTIAL (PRIMARY) HYPERTENSION Status: Acute Current Visit: Yes (4) Hyperlipidemia SNOMED Code(s): 44104134 ICD Code: E78.5 - HYPERLIPIDEMIA, UNSPECIFIED Status: Acute Current Visit : Yes (5) Asthma SNOMED Code(s): 002306052 ICD Code: J45.909 - UNSPECIFIED ASTHMA, UNCOMPLICATED Status: Acute Current Visit: Yes - Patient Summary/Data Consults: Consultations 08/11/19 18:48 Consult to Physician [CONS] Stat - Patient Instructions Diet: NPO - Discharge Plan *PRESCRIPTION DRUG MONITORING PROGRAM REVIEWED*: Not Applicable *COPY OF PRESCRIPTION DRUG MONITORING REPORT IN PATIENT AL: Not Applicable Home Medications: Home Meds Magnesium 500 mg PO BEDTIME 02/22/18 [History] Verapamil HCl [Verapamil Sr] 120 mg PO DAILY PRN 02/22/18 [History] Carbidopa/Levodopa [Carbidopa-Levodopa 25-100 Tab] 25 - 100 mg PO TID 06/29/19 [ History] Gabapentin [Neurontin] 100 mg PO BEDTIME 06/29/19 [History] Ibuprofen [Advil] 200 mg PO . NEEDED PRN 06/29/19 [History] Omeprazole 20 mg PO DAILY 06/29/19 [History] Cephalexin [Keflex] 500 mg PO BID #10 capsule 06/30/19 [Rx] Oxygen Therapy Mode: Nasal Cannula Oxygen Flow Rate (L/min): 2 Referrals: London Singletary MD [Physician] - 08/31/19 10:45 am - Discharge Summary/Plan Comment DC Time >30 min.: No Discharge Summary/Plan Comment: Admitting Diagnoses: RUQ pain N/V Discharge Diagnoses: Suspected acalosus cholecystitis RUQ pain This 78 year old female was admitted with abdominal pain, RUQ US normal. CT of abdomen and pelvis revealed distended gallbladder and common bile duct dilated to 9 mm suggestive of possible cholecystitis. No leukocytosis or fevers noted. She was admitted with consultation to general surgery, Dr Zapien. She was kept on IVFs and pain control. No IV antibiotics started as no infection noted currently. LFTs WNL, no elevation in INR. She continues to have significant pain with nausea. Dr Zapien assessed patient today and feels it is safest to consider transfer for cholecystostomy tube place for decompression of gallbladder and consider elective cholecystectomy at a later day. He spoke with family and patient and they are in agreement. I contacted [facility] and Dr Alaniz accepted patient for transfer. She will go by ground EMS at this time. Family and patient aware. All images will be pushed via PACS. Dr Rashid involved in treatment plan and transfer discussions. - General Info Date of Service: 08/14/19 Subjective Update: Continues to have significant pain to RUQ, causing decrease respiratory effort due to increased pain with respirations. No chest pain. Passing flatus. Functional Status: Reports: Ambulating. Denies: Pain Controlled, Tolerating Diet - Review of Systems General: Reports: Malaise. Denies: Fever HEENT: Reports: No Symptoms Pulmonary: Reports: No Symptoms. Denies: Shortness of Breath Cardiovascular: Reports: No Symptoms. Denies: Chest Pain Gastrointestinal: Reports: Abdominal Pain (RUQ), Nausea. Denies: Vomiting Genitourinary: Reports: No Symptoms Musculoskeletal: Reports: No Symptoms Skin: Reports: No Symptoms Neurological: Reports: No Symptoms Psychiatric: Reports: No Symptoms - Patient Data Vitals - Most Recent: Last Vital Signs Temp 98.5 F 08/14/19 07:10 Pulse 101 H 08/14/19 07:10 Resp 16 08/14/19 07:10 BP 112/55 L 08/14/19 07:52 Pulse Ox 90 L 08/14/19 07:58 Weight - Most Recent: 56.699 kg I&O - Last 24 hours: Intake & Output 08/13/19 08/14/19 08/14/19 22:59 06:59 14:59 Intake Total 900 400 Output Total 400 450 Balance 500 -50 Lab Results - Last 24 hrs: Laboratory Results - last 24 hr 08/13/19 08/13/19 08/14/19 Range/Units 12:45 15:10 06:15 WBC 10.88 (4.0-11.0) K/uL RBC 3.30 L (4.30-5.90) M/uL Hgb 10.1 L (12.0-16.0) g/dL Hct 31.5 L (36.0-46.0) % MCV 95.5 (80.0-98.0) fL MCH 30.6 (27.0-32.0) pg MCHC 32.1 (31.0-37.0) g/dL RDW Std Deviation 48.6 (28.0-62.0) fl RDW Coeff of Bebeto 14 (11.0-15.0) % Plt Count 137 L (150-400) K/uL MPV 8.90 (7.40-12.00) fL Neut % (Auto) 82.2 H (48.0-80.0) % Lymph % (Auto) 8.5 L (16.0-40.0) % [place] % (Auto) 9.1 (0.0-15.0) % Eos % (Auto) 0.1 (0.0-7.0) % Baso % (Auto) 0.1 (0.0-1.5) % Neut # (Auto) 8.9 H (1.4-5.7) K/uL Lymph # (Auto) 0.9 (0.6-2.4) K/uL [place] # (Auto) 1.0 H (0.0-0.8) K/uL Eos # (Auto) 0.0 (0.0-0.7) K/uL Baso # (Auto) 0.0 (0.0-0.1) K/uL Nucleated RBC % 0.0 /100WBC Nucleated RBCs # 0 K/uL Sodium (136-145) mmol/L Potassium (3.5-5.1) mmol/L Chloride (98-107) mmol/L Carbon Dioxide (21.0-32.0) mmol/L BUN (7.0-18.0) mg/dL Creatinine (0.6-1.0) mg/dL Est Cr Clr Drug Dosing mL/min Estimated GFR (MDRD) ml/min Glucose (74-106) mg/dL Calcium (8.5-10.1) mg/dL Phosphorus (2.6-4.7) mg/dL Magnesium (1.8-2.4) mg/dL Total Bilirubin (0.2-1.0) mg/dL AST (15-37) IU/L ALT (14-63) IU/L Alkaline Phosphatase (46-116) U/L Troponin I 0.052 (0.000-0.056) ng/mL Urine Color YELLOW Urine Appearance CLEAR Urine pH 6.0 (5.0-8.0) Ur Specific [place] >= 1.030 (1.001-1.035) Urine Protein TRACE H (NEGATIVE) mg/dL Urine Glucose (UA) NEGATIVE (NEGATIVE) mg/dL Urine Ketones >=80 (NEGATIVE) mg/dL Urine Occult Blood MODERATE H (NEGATIVE) Urine Nitrite NEGATIVE (NEGATIVE) Urine Bilirubin NEGATIVE (NEGATIVE) Urine Urobilinogen 1.0 (<2.0) EU/dL Ur Leukocyte Esterase TRACE H (NEGATIVE) Urine RBC 4-8 (0-2/HPF) Urine WBC 8-12 (0-5/HPF) Ur Epithelial Cells FEW (NONE-FEW) Urine Bacteria FEW (NEGATIVE) 08/14/19 08/14/19 Range/Units 06:15 06:15 WBC (4.0-11.0) K/uL RBC (4.30-5.90) M/uL Hgb (12.0-16.0) g/dL Hct (36.0-46.0) % MCV (80.0-98.0) fL MCH (27.0-32.0) pg MCHC (31.0-37.0) g/dL RDW Std Deviation (28.0-62.0) fl RDW Coeff of [place]eb[place] (11.0-15.0) % Plt Count (150-400) K/uL MPV (7.40-12.00) fL Neut % (Auto) (48.0-80.0) % Lymph % (Auto) (16.0-40.0) % [place] % (Auto) (0.0-15.0) % Eos % (Auto) (0.0-7.0) % Baso % (Auto) (0.0-1.5) % Neut # (Auto) (1.4-5.7) K/uL Lymph # (Auto) (0.6-2.4) K/uL [place] # (Auto) (0.0-0.8) K/uL Eos # (Auto) (0.0-0.7) K/uL Baso # (Auto) (0.0-0.1) K/uL Nucleated RBC % /100WBC Nucleated RBCs # K/uL Sodium 142 (136-145) mmol/L Potassium 4.3 (3.5-5.1) mmol/L Chloride 108 H (98-107) mmol/L Carbon Dioxide 19.8 L (21.0-32.0) mmol/L BUN 24 H (7.0-18.0) mg/dL Creatinine 0.9 (0.6-1.0) mg/dL Est Cr Clr Drug Dosing 43.77 mL/min Estimated GFR (MDRD) > 60.0 ml/min Glucose 83 (74-106) mg/dL Calcium 7.7 L (8.5-10.1) mg/dL Phosphorus 2.4 L (2.6-4.7) mg/dL Magnesium 1.8 (1.8-2.4) mg/dL Total Bilirubin 0.8 (0.2-1.0) mg/dL AST 36 (15-37) IU/L ALT 19 (14-63) IU/L Alkaline Phosphatase 104 (46-116) U/L Troponin I (0.000-0.056) ng/mL Urine Color Urine Appearance Urine pH (5.0-8.0) Ur Specific [place] (1.001-1.035) Urine Protein (NEGATIVE) mg/dL Urine Glucose (UA) (NEGATIVE) mg/dL Urine Ketones (NEGATIVE) mg/dL Urine Occult Blood (NEGATIVE) Urine Nitrite (NEGATIVE) Urine Bilirubin (NEGATIVE) Urine Urobilinogen (<2.0) EU/dL Ur Leukocyte Esterase (NEGATIVE) Urine RBC (0-2/HPF) Urine WBC (0-5/HPF) Ur Epithelial Cells (NONE-FEW) Urine Bacteria (NEGATIVE) Med Orders - Current: Current Medications Benzocaine/Menthol (Cepacol Sore Throat) 1 lozenge MUCMEM Q2H PRN PRN Reason: Sore Throat Last Admin: 08/12/19 11:23 Dose: 1 lozenge Carbidopa/Levodopa (Sinemet 25-100 Mg) 1 tab PO TID [facility] Last Admin: 08/14/19 06:36 Dose: 1 tab Heparin Sodium (Porcine) (Heparin Sodium) 5,000 units SUBCUT Q8H [facility] Last Admin: 08/14/19 11:35 Dose: Not Given Hydromorphone HCl (Dilaudid) 1 mg IVPUSH Q4H PRN PRN Reason: Other Last Admin: 08/14/19 11:02 Dose: 1 mg Ketorolac Tromethamine (Toradol) 30 mg IVPUSH Q6H PRN PRN Reason: Pain Stop: 08/18/19 12:24 Last Admin: 08/14/19 08:28 Dose: 30 mg Lidocaine (Lidoderm 5%) 700 mg TOP Q24H [facility] Last Admin: 08/13/19 14:09 Dose: 700 mg Metoclopramide HCl (Reglan) 5 mg IVPUSH Q6H PRN PRN Reason: Nausea Last Admin: 08/14/19 06:38 Dose: 5 mg Nitroglycerin (Nitrostat) 0.4 mg SL Q5M PRN PRN Reason: Chest Pain Last Admin: 08/11/19 15:10 Dose: 0.4 mg Sodium Chloride (Saline Flush) 10 ml FLUSH ASDIRECTED PRN PRN Reason: Keep Vein Open Last Admin: 08/11/19 12:55 Dose: 10 ml Sodium Chloride (Saline Flush) 2.5 ml FLUSH ASDIRECTED PRN PRN Reason: Keep Vein Open Last Admin: 08/11/19 12:54 Dose: 2.5 ml Verapamil HCl (Calan Sr) 120 mg PO DAILY PRN PRN Reason: head pressure Verapamil HCl (Calan Sr) 120 mg PO BEDTIME [facility] Last Admin: 08/13/19 21:03 Dose: 120 mg Discontinued Medications Aspirin (Aspirin) 324 mg PO ONETIME ONE Stop: 08/11/19 12:49 Last Admin: 08/11/19 12:53 Dose: 324 mg Diltiazem HCl (Cardizem) 20 mg PO ONETIME ONE Stop: 08/13/19 12:23 Last Admin: 08/13/19 12:34 Dose: 20 mg Hydromorphone HCl (Dilaudid) 1 mg IVPUSH ONETIME ONE Stop: 08/11/19 17:28 Last Admin: 08/11/19 17:35 Dose: 1 mg Hydromorphone HCl (Dilaudid) 0.5 mg IVPUSH Q4H PRN PRN Reason: Other Last Admin: 08/13/19 05:48 Dose: 0.5 mg Sodium Chloride (Normal Saline) 500 mls @ 999 mls/hr IV STAT [facility]ITAL[facility] Last Admin: 08/11/19 12:56 Dose: 999 mls/hr Sodium Chloride (Normal Saline) 1,000 mls @ 999 mls/hr IV .Bolus ONE Stop: 08/11/19 16:28 Last Admin: 08/11/19 15:33 Dose: 999 mls/hr Sodium Chloride (Normal Saline) 1,000 mls @ 125 mls/hr IV STAT [facility]ITALY Last Admin: 08/11/19 17:35 Dose: 125 mls/hr Sodium Chloride (Normal Saline) 1,000 mls @ 75 mls/hr IV STAT [facility] Last Admin: 08/12/19 22:32 Dose: 75 mls/hr Lactated Ringer's (Ringers, Lactated) 1,000 mls @ 75 mls/hr IV ASDIRECTED [facility]ITALY Stop: 08/14/19 08:19 Last Admin: 08/13/19 19:15 Dose: 75 mls/hr Ketorolac Tromethamine (Toradol) 15 mg IVPUSH ONETIME ONE Stop: 08/11/19 12:54 Last Admin: 08/11/19 12:58 Dose: 15 mg Ketorolac Tromethamine (Toradol) 30 mg IVPUSH ONETIME ONE Stop: 08/11/19 19:25 Last Admin: 08/11/19 20:20 Dose: 30 mg Ketorolac Tromethamine (Toradol) 30 mg IVPUSH ONETIME ONE Stop: 08/12/19 18:32 Last Admin: 08/12/19 18:57 Dose: 30 mg Lorazepam (Ativan) 0.5 mg IVPUSH STAT STA Stop: 08/11/19 15:22 Last Admin: 08/11/19 15:25 Dose: 0.5 mg Morphine Sulfate (Morphine) 2 mg IVPUSH ONETIME ONE Stop: 08/11/19 14:09 Last Admin: 08/11/19 14:12 Dose: 2 mg Ondansetron HCl (Zofran) 4 mg IVPUSH ONETIME ONE Stop: 08/11/19 14:10 Last Admin: 08/11/19 14:12 Dose: 4 mg Ondansetron HCl (Zofran) Confirm Administered Dose 4 mg .ROUTE .STK-MED ONE Stop: 08/11/19 14:18 Last Admin: 08/11/19 14:22 Dose: Not Given Ondansetron HCl (Zofran) 4 mg IVPUSH ONETIME ONE Stop: 08/11/19 14:19 Last Admin: 08/11/19 14:18 Dose: 4 mg Promethazine HCl (Phenergan) 25 mg IM ONETIME ONE Stop: 08/11/19 14:52 Last Admin: 08/11/19 14:56 Dose: 25 mg - Exam Quality Assessment: Reports: Supplemental Oxygen, DVT Prophylaxis (heparin) General: Reports: Alert, Oriented, Cooperative Lungs: Reports: Clear to Auscultation, Normal Respiratory Effort Cardiovascular: Reports: Regular Rate, Irregular Rhythm GI/Abdominal Exam: Normal Bowel Sounds, Soft, Tender (RUQ, + murphys) Psy/Mental Status: Reports: Alert, Normal Affect, Normal Mood
[2019-08-14] MEDS ORDERED: HYDROmorphone 1 MG/ML Syringe IVPUSH ONE (12:04)
[2019-08-14] MEDS: Lidocaine 5% 700 MG Patch TOP SCH (13:10)
== END 2019-08-14 12:45 | DRG 446 ==
LOC: MW.ED 12:38 → MW.MS 18:08 → OBSVTOIN 08-13 14:38 → MW.MS 08-13 15:40
PROVIDERS: ADMIT Student in an Organized Health Care Education/Training Program; ATTEND Student in an Organized Health Care Education/Training Program
DX: R10.11 Right upper quadrant pain (principal); R11.2 Nausea with vomiting, unspecified; R07.9 Chest pain, unspecified; E78.00 Pure hypercholesterolemia, unspecified; K80.42 Calculus of bile duct with acute cholecystitis without obstruction; I10 Essential (primary) hypertension; G25.81 Restless legs syndrome; Z88.6 Allergy status to analgesic agent; E78.5 Hyperlipidemia, unspecified; N18.9 Chronic kidney disease, unspecified; Z85.41 Personal history of malignant neoplasm of cervix uteri; J45.909 Unspecified asthma, uncomplicated; Z88.5 Allergy status to narcotic agent; Z88.7 Allergy status to serum and vaccine; Z79.2 Long term (current) use of antibiotics; Z79.899 Other long term (current) drug therapy; Z85.828 Personal history of other malignant neoplasm of skin; Z90.710 Acquired absence of both cervix and uterus; Z99.81 Dependence on supplemental oxygen
CPT/HCPCS: 36415 ×2; 71045; 71046; 71250; 74176; 76705; 80053 ×3; 81001; 83690; 84484; 85025 ×3; 85610; 93005 ×2; 96361; 96372; 96374; 96375; 99285; A9270 ×9; J1170 ×12; J1644 ×6; J1885 ×4; J2060; J2270; J2405 ×2; J2550; J2765 ×2; J7040 ×6; 80048; 82247; 83735; 84075; 84100; 84450; 84460; 96376; 99284; G0378; J7030; J7120

== ENCOUNTER 2021-07-18 12:16 | Observation (INO) | payer MEDICARE, BC ==
--- NOTE | 2021-07-18 12:25 | PCM.EKG ---
#1 Interpretation EKG Interpretation Comments: KG done 07/18/2021 at 12:20 PM shows a sinus rhythm with a heart rate of 73 IN interval 144 QT duration 436 [place] V low voltage with late transition R wave in the precordium nonspecific T abnormalities compared to 08/13/2019 no significant change except for P waves not present significantly on the prior EKG. Impression no acute injury
[2021-07-18] MEDS ORDERED: Sodium Chloride 0.9% 2.5 ML Syringe FLUSH PRN (12:27)
[2021-07-18] MEDS ORDERED: Sodium Chloride 0.9% 10 ML Syringe FLUSH PRN (12:27)
[2021-07-18 13:15] LABS: BLOOD UREA NITROGEN,BUN 33 mg/dL (7.0-18.0); CARBON DIOXIDE,CO2 23.3 mmol/L (21.0-32.0); CHLORIDE,CL 104 mmol/L (98-107); GLUCOSE RANDOM 107 mg/dL (74-106); LIPASE 190 U/L (73-393); POTASSIUM,K 3.9 mmol/L (3.5-5.1); SODIUM,NA 138 mmol/L (136-145)
[2021-07-18] MEDS ORDERED: cefTRIAXone 1 GM in Premix Bag 1 BAG IV ONE (14:04)
[2021-07-18] MEDS ORDERED: Sodium Chloride 0.9% 1,000 ML IV SCH (14:15)
--- NOTE | 2021-07-18 14:52 | EDM.PDOC ---
<Roger Zapien Leila - Last Filed: 07/18/21 19:20> ED HPI GENERAL MEDICAL PROBLEM - General Chief Complaint: Abdominal Pain Stated Complaint: STOMACH PAIN/EMS Time Seen by Provider: 07/18/21 12:18 - Related Data Allergies Allergy/AdvReac Type Severity Reaction Status Date / Time codeine Allergy Hallucinati Verified 07/18/21 19:51 ons influenza virus vaccine, Allergy Syncope Verified 07/18/21 19:51 specific [Influenza Virus Vacc,Specific] Home Meds: Home Meds Magnesium 500 mg PO BEDTIME 02/22/18 [History] Verapamil HCl [Verapamil Sr] 120 mg PO DAILY PRN 02/22/18 [History] Carbidopa/Levodopa [Carbidopa-Levodopa 25-100 Tab] 25 - 100 mg PO TID 06/29/19 [History] Gabapentin [Neurontin] 100 mg PO BEDTIME 06/29/19 [History] Ibuprofen [Advil] 200 mg PO . NEEDED PRN 06/29/19 [History] Omeprazole 20 mg PO DAILY 06/29/19 [History] cephALEXin [Keflex] 500 mg PO BID #10 capsule 06/30/19 [Rx] Departure - Departure Disposition: Refer to Observation Clinical Impression: Small bowel obstruction Urinary tract infection Qualifiers: Urinary tract infection type: site unspecified Hematuria presence: without hematuria Qualified Code(s): N39.0 - Urinary tract infection, site not specified - Discharge Information - Problem List & Annotations (1) Small bowel obstruction SNOMED Code(s): 175887679 Code(s): K56.609 - UNSP INTESTNL OBST, UNSP TO PARTIAL VERSUS COMPLETE OBST Status: Acute Priority: High Current Visit: Yes (2) UTI (urinary tract infection) SNOMED Code(s): 24067770 Code(s): N39.0 - URINARY TRACT INFECTION, SITE NOT SPECIFIED Status: Acute Priority: High Current Visit: Yes Qualifiers: Urinary tract infection type: site unspecified Hematuria presence: without hematuria Qualified Code(s): N39.0 - Urinary tract infection, site not specified (3) Abdominal pain SNOMED Code(s): 08573012 Code(s): R10.9 - UNSPECIFIED ABDOMINAL PAIN Status: Acute Priority: Medium Current Visit: No <Rachael Hilliard - Last Filed: 11/05/21 22:00> ED HPI GENERAL MEDICAL PROBLEM - General Source of Information: Reports: Patient History Limitations: Reports: No Limitations - History of Present Illness INITIAL COMMENTS - FREE TEXT/NARRATIVE: HISTORY AND PHYSICAL: History of present illness: Patient is an 80-year-old female, with a history of hypertension, hyperlipidemia, asthma, restless leg syndrome, and chronic kidney disease, who presents emergency room today with concern of an episode of 8 out of 10 upper abdominal pain associated with one episode of nonbilious, nonbloody vomiting. Patient states that this episode lasted approximately 45 minutes and states that now here in the emergency room, it is a dull 2 out of 10 and has much improved. Patient states that when the pain came on, she did also have 1 episode of vomiting. Patient states that she has had diarrhea over the past 1 month and states her last episode was this morning. Denies any blood in her diarrhea. Patient states that she also has her gallbladder removed and a hysterectomy and denies any other abdominal surgeries. Patient states she has not taken any additional medications for her symptoms. Patient denies fever, chills, chest pain, shortness of breath, or cough. Denies headache, neck stiff ness, change in vision, syncope, or near syncope. Denies constipation, or dysuria. Has not noted any blood in urine or stool. Patient has been eating and drinking appropriately. Review of systems: As per history of present illness and below otherwise all systems reviewed and negative. Past medical history: As per history of present illness and as reviewed below otherwise noncontributory. Surgical history: As per history of present illness and as reviewed below otherwise noncontributory. Social history: See social history for further information Family history: As per history of present illness and as reviewed below otherwise noncontributory. Physical exam: General: Patient is alert, oriented, and in no acute distress. Patient laying comfortably on exam table. Blood pressure is softer at 99/52 with MAP 68. Otherwise, vitally stable and reviewed by me. HEENT: Atraumatic, normocephalic, pupils equal and reactive bilaterally, negative for conjunctival pallor or scleral icterus, mucous membranes moist, throat clear, neck supple, nontender, trachea midline. No drooling or trismus noted. No meningeal signs. No hot potato voice noted. Lungs: Clear to auscultation, breath sounds equal bilaterally, chest nontender. Heart: S1S2, regular rate and rhythm without overt murmur Abdomen: Soft, nondistended, moderate periumbilical tenderness with guarding, negative rebound/angeles. Negative for masses or hepatosplenomegaly. Negative for costovertebral tenderness. Pelvis: Stable nontender. Genitourinary: Deferred. Rectal: Deferred. Skin: Intact, warm, dry. No lesions or rashes noted. Extremities: Atraumatic, negative for cords or calf pain. Neurovascular unremarkable. Neuro: Awake, alert, oriented. Cranial nerves II through XII unremarkable. Cerebellum unremarkable. Motor and sensory unremarkable throughout. Exam nonfocal. Medical Decision Making: Patient is an 80-year-old female who presents emergency room today with concern of a 45-minute episode of upper abdominal pain with 1 episode of nonbilious, nonbloody vomiting in the setting of diarrhea watery over the past 1 month. Upon arrival to the ED, patient's blood pressure is softer at 99/52 with a MAP of 68, otherwise patient is vitally stable. On exam, patient does have moderate periumbilical tenderness with guarding with negative rebound and [place]. Patient does have a history of cholecystectomy and hysterectomy. At this time, will obtain cardiac evaluation, due to patient's underlying chronic kidney disease and low GFR, will obtain abdominal pelvic CT scan without contrast. Will also provide a fluid bolus and reassess patient. See Dr. Julio dictation for specific EKG interpretation. I however, sinus rhythm with a heart rate of 83 without STEMI. CBC does show mild thrombocytopenia with platelet count at 145, otherwise mild derangements of CBC unremarkable. CMP does show an elevation of creatinine at 1.3 and BUN of 33. Otherwise mild derangements of CMP unremarkable. Troponin negative. Lipase within normal limits. Urinalysis does show positive nitrate, positive leukocyte Estrace with 10-15 white blood cells and 3+ bacteria. Impression, acute urinary tract infection. Will provide a dose of Rocephin here in the emergency room. COVID-19 negative. Blood cultures pending. Abdominal pelvic CT scan shows suspicious for small bowel obstruction. Transition point likely resides in the lower abdomen and pelvis. No evidence for bowel ischemia or perforation. A 1.5 x 0.8 nodular density in the posterior right lobe with adjacent scarring, new since 2019. 3-month follow-up chest CT recommended for surveillance. I did call and speak to the hospitalist on-call, Dr. Stephens, and thoroughly discussed patient's case. Will admit to observation to Dr. Stephens I did call and speak to the general surgeon, Dr. Zapien, who is agreeable with consult to patient. Will place NG tube. Voices understanding and is agreeable to plan of care. Denies any further questions or concerns at this time. Diagnostics: EKG, CBC, CMP, troponin, urinalysis, COVID-19, abdominal pelvic CT scan without contrast, lactate, Blood culture x 2 Therapeutics: NS, Rocephin, NG Tube Impression: Small bowel obstruction Urinary Tract Infection Plan: Admit to observation to Dr. Stephens Definitive disposition and diagnosis as appropriate pending reevaluation and review of above. Middle Epigastric Pain Score (Numeric/FACES): 8 Past Medical History HEENT History: Reports: None Cardiovascular History: Reports: High Cholesterol, Hypertension Respiratory History: Reports: Asthma Gastrointestinal History: Reports: None Genitourinary History: Reports: None [employer] History: Reports: Musculoskeletal History: Reports: Other (See Below) Other Musculoskeletal History: sciatica Neurological History: Reports: Other (See Below) Other Neuro History: restless leg syndrome Psychiatric History: Reports: None Endocrine/Metabolic History: Reports: None Hematologic History: Reports: None Immunologic History: Reports: None Oncologic (Cancer) History: Reports: None Dermatologic History: Reports: Other (See Below) Other Dermatologic History: skin cancer nose - Infectious Disease History Infectious Disease History: Reports: Chicken Pox, Measles, Mumps - Past Surgical History Head Surgeries/Procedures: Reports: None HEENT Surgical History: Reports: Other (See Below) GI Surgical History: Reports: Cholecystectomy Other GI Surgeries/Procedures: gallbladder removal 2020 Female Surgical History: Reports: Section, Hysterectomy Social & Family History - Family History Family Medical History: No Pertinent Family History - Caffeine Use Caffeine Use: Reports: Soda - Living Situation & Occupation Living situation: Reports: Occupation: Retired ED ROS GENERAL - Review of Systems Review Of Systems: Comprehensive ROS is negative, except as noted in HPI. ED EXAM, GENERAL - Physical Exam Exam: See Below (see dictation) Course - Vital Signs Last Recorded V/S: Last Vital Signs Temp 97.6 F 07/18/21 19:48 Pulse 92 07/18/21 19:48 Resp 16 07/18/21 19:48 BP 109/65 07/18/21 19:48 Pulse Ox 95 07/18/21 19:48 - Orders/Labs/Meds Orders: Active Orders 24 hr Category Date Time Status Notify Provider Consults [RC] ASDIRECTED Care 07/18/21 17:17 Active Consult to Physician [CONS] Stat Cons 07/18/21 17:16 Active C DIFFICILE AG/TOXIN W/REFLEX [RM] Stat Lab 07/18/21 12:28 Ordered CULTURE BLOOD [BC] Stat Lab 07/18/21 12:30 Received CULTURE BLOOD [BC] Stat Lab 07/18/21 14:18 Received CULTURE URINE [MREF] Stat Lab 07/18/21 13:32 Received OVA & PARASITES BY IMMUNOASSAY [MREF] Stat Lab 07/18/21 12:28 Ordered STOOL CULTURE/SHIGA TOXIN [MREF] Stat Lab 07/18/21 12:28 Ordered Sodium Chloride 0.9% [Saline Flush] Med 07/18/21 12:27 Active 10 ml FLUSH ASDIRECTED PRN Sodium Chloride 0.9% [Saline Flush] Med 07/18/21 12:27 Active 2.5 ml FLUSH ASDIRECTED PRN Blood Culture x2 Reflex Set [OM.PC] Stat Oth 07/18/21 14:04 Ordered Saline Lock Insert [OM.PC] Stat Oth 07/18/21 12:27 Ordered Medication Orders Enoxaparin Sodium (Enoxaparin 30 Mg/0.3 Ml Syringe) 30 mg SUBCUT Q24H [facility] Sodium Chloride (Normal Saline) 1,000 mls @ 125 mls/hr IV ASDIRECTED [facility] Last Admin: 07/18/21 20:40 Dose: 125 mls/hr Documented by: AYDEE Ceftriaxone Sodium/Dextrose (Rocephin In Dextrose,Iso-Osm 1 Gm/50 Ml) 50 mls @ 100 mls/hr IV Q24H [facility] Morphine Sulfate (Morphine 2 Mg/Ml Syringe) 2 mg IVPUSH Q2H PRN PRN Reason: Pain (severe 7-10) Stop: 07/19/21 20:07 Ondansetron HCl (Ondansetron 4 Mg/2 Ml Sdv) 4 mg IVPUSH Q4H PRN PRN Reason: Nausea Sodium Chloride (Sodium Chloride 0.9% 10 Ml Syringe) 10 ml FLUSH ASDIRECTED PRN PRN Reason: Keep Vein Open Last Admin: 07/18/21 13:43 Dose: 10 ml Documented by: ALY Sodium Chloride (Sodium Chloride 0.9% 2.5 Ml Syringe) 2.5 ml FLUSH ASDIRECTED PRN PRN Reason: Keep Vein Open Last Admin: 07/18/21 13:43 Dose: 2.5 ml Documented by: ALY Labs: Laboratory Tests 07/18/21 07/18/21 07/18/21 Range/Units 12:30 12:30 13:32 WBC 5.74 (4.0-11.0) K/uL RBC 3.99 L (4.30-5.90) M/uL Hgb 12.5 (12.0-16.0) g/dL Hct 38.2 (36.0-46.0) % MCV 95.7 (80.0-98.0) fL MCH 31.3 (27.0-32.0) pg MCHC 32.7 (31.0-37.0) g/dL RDW Std Deviation 52.3 (28.0-62.0) fl RDW Coeff of Beb[place] 15 (11.0-15.0) % Plt Count 145 L (150-400) K/uL MPV 9.10 (7.40-12.00) fL Neut % (Auto) 57.3 (48.0-80.0) % Lymph % (Auto) 25.6 (16.0-40.0) % [place] % (Auto) 9.9 (0.0-15.0) % Eos % (Auto) 7.0 (0.0-7.0) % Baso % (Auto) 0.2 (0.0-1.5) % Neut # (Auto) 3.3 (1.4-5.7) K/uL Lymph # (Auto) 1.5 (0.6-2.4) K/uL [place] # (Auto) 0.6 (0.0-0.8) K/uL Eos # (Auto) 0.4 (0.0-0.7) K/uL Baso # (Auto) 0.0 (0.0-0.1) K/uL Nucleated RBC % 0.0 /100WBC Nucleated RBCs # 0 K/uL Sodium 138 (136-145) mmol/L Potassium 3.9 (3.5-5.1) mmol/L Chloride 104 (98-107) mmol/L Carbon Dioxide 23.3 (21.0-32.0) mmol/L BUN 33 H (7.0-18.0) mg/dL Creatinine 1.3 H (0.6-1.0) mg/dL Est Cr Clr Drug Dosing TNP Estimated GFR (MDRD) 39.3 ml/min Glucose 107 H (74-106) mg/dL Lactic Acid (0.4-2.0) mmol/L Calcium 8.8 (8.5-10.1) mg/dL Total Bilirubin 0.3 (0.2-1.0) mg/dL AST 32 (15-37) IU/L ALT 13 L (14-63) IU/L Alkaline Phosphatase 118 H (46-116) U/L Troponin I < 0.050 (0.000-0.056) ng/mL Total Protein 7.2 (6.4-8.2) g/dL Albumin 3.4 (3.4-5.0) g/dL Globulin 3.8 (2.6-4.0) g/dL Albumin/Globulin Ratio 0.9 (0.9-1.6) Lipase 190 (73-393) U/L Urine Color YELLOW Urine Appearance SLT CLOUDY Urine pH 6.0 (5.0-8.0) Ur Specific [place] 1.020 (1.001-1.035) Urine Protein NEGATIVE (NEGATIVE) mg/dL Urine Glucose (UA) NEGATIVE (NEGATIVE) mg/dL Urine Ketones TRACE H (NEGATIVE) mg/dL Urine Occult Blood SMALL H (NEGATIVE) Urine Nitrite POSITIVE H (NEGATIVE) Urine Bilirubin NEGATIVE (NEGATIVE) Urine Urobilinogen 0.2 (<2.0) EU/dL Ur Leukocyte Esterase MODERATE H (NEGATIVE) Urine RBC 0-1 (0-2/HPF) Urine WBC 10-15 (0-5/HPF) Ur Epithelial Cells OCCASIONAL (NONE-FEW) Urine Bacteria 3+ H (NEGATIVE) Urine Mucus LIGHT (NONE-MOD) SARS-CoV-2 RNA ([place]IA) (NEGATIVE) 07/18/21 07/18/21 Range/Units 13:45 14:18 WBC (4.0-11.0) K/uL RBC (4.30-5.90) M/uL Hgb (12.0-16.0) g/dL Hct (36.0-46.0) % MCV (80.0-98.0) fL MCH (27.0-32.0) pg MCHC (31.0-37.0) g/dL RDW Std Deviation (28.0-62.0) fl RDW Coeff of Bebeto (11.0-15.0) % Plt Count (150-400) K/uL MPV (7.40-12.00) fL Neut % (Auto) (48.0-80.0) % Lymph % (Auto) (16.0-40.0) % [place] % (Auto) (0.0-15.0) % Eos % (Auto) (0.0-7.0) % Baso % (Auto) (0.0-1.5) % Neut # (Auto) (1.4-5.7) K/uL Lymph # (Auto) (0.6-2.4) K/uL [place] # (Auto) (0.0-0.8) K/uL Eos # (Auto) (0.0-0.7) K/uL Baso # (Auto) (0.0-0.1) K/uL Nucleated RBC % /100WBC Nucleated RBCs # K/uL Sodium (136-145) mmol/L Potassium (3.5-5.1) mmol/L Chloride (98-107) mmol/L Carbon Dioxide (21.0-32.0) mmol/L BUN (7.0-18.0) mg/dL Creatinine (0.6-1.0) mg/dL Est Cr Clr Drug Dosing Estimated GFR (MDRD) ml/min Glucose (74-106) mg/dL Lactic Acid 1.5 (0.4-2.0) mmol/L Calcium (8.5-10.1) mg/dL Total Bilirubin (0.2-1.0) mg/dL AST (15-37) IU/L ALT (14-63) IU/L Alkaline Phosphatase (46-116) U/L Troponin I (0.000-0.056) ng/mL Total Protein (6.4-8.2) g/dL Albumin (3.4-5.0) g/dL Globulin (2.6-4.0) g/dL Albumin/Globulin Ratio (0.9-1.6) Lipase (73-393) U/L Urine Color Urine Appearance Urine pH (5.0-8.0) Ur Specific [place] (1.001-1.035) Urine Protein (NEGATIVE) mg/dL Urine Glucose (UA) (NEGATIVE) mg/dL Urine Ketones (NEGATIVE) mg/dL Urine Occult Blood (NEGATIVE) Urine Nitrite (NEGATIVE) Urine Bilirubin (NEGATIVE) Urine Urobilinogen (<2.0) EU/dL Ur Leukocyte Esterase (NEGATIVE) Urine RBC (0-2/HPF) Urine WBC (0-5/HPF) Ur Epithelial Cells (NONE-FEW) Urine Bacteria (NEGATIVE) Urine Mucus (NONE-MOD) SARS-CoV-2 RNA (L[place]ONIA) NEGATIVE (NEGATIVE) Meds: Medications Generic Name Dose Route Start Last Admin Trade Name Freq PRN Reason Stop Dose Admin Enoxaparin Sodium 30 mg 07/18/21 22:00 Enoxaparin 30 Mg/0.3 Ml Syringe SUBCUT Q24H [facility] Sodium Chloride 1,000 mls @ 125 mls/hr 07/18/21 20:15 07/18/21 20:40 Normal Saline IV 125 mls/hr ASDIRECTED [facility] Administration Ceftriaxone Sodium/Dextrose 50 mls @ 100 mls/hr 07/19/21 14:00 Rocephin In Dextrose,Iso-Osm 1 Gm/50 Ml IV Q24H [facility] Morphine Sulfate 2 mg 07/18/21 20:07 Morphine 2 Mg/Ml Syringe IVPUSH 07/19/21 20:07 Q2H PRN Pain (severe 7-10) Ondansetron HCl 4 mg 07/18/21 20:07 Ondansetron 4 Mg/2 Ml Sdv IVPUSH Q4H PRN Nausea Sodium Chloride 10 ml 07/18/21 12:27 07/18/21 13:43 Sodium Chloride 0.9% 10 Ml Syringe FLUSH 10 ml ASDIRECTED PRN Administration Keep Vein Open Sodium Chloride 2.5 ml 07/18/21 12:27 07/18/21 13:43 Sodium Chloride 0.9% 2.5 Ml Syringe FLUSH 2.5 ml ASDIRECTED PRN Administration Keep Vein Open Discontinued Medications Generic Name Dose Route Start Last Admin Trade Name Freq PRN Reason Stop Dose Admin Benzocaine 1 each 07/18/21 16:45 07/18/21 17:42 Benzocaine 20% Topical [place] Ud MUCMEM 07/18/21 16:46 1 each ONETIME ONE Administration Sodium Chloride 1,000 mls @ 125 mls/hr 07/18/21 14:15 07/18/21 14:19 Normal Saline IV 125 mls/hr ASDIRECTED [facility] Administration Ceftriaxone Sodium/Dextrose 1 50 mls @ 100 mls/hr 07/18/21 14:04 07/18/21 14:19 gm/ Premix IV 07/18/21 14:33 100 mls/hr ONETIME ONE Administration Lidocaine HCl 20 ml 07/18/21 16:45 07/18/21 17:43 Lidocaine 2% Viscous Solution 100 Ml Bottle PO 07/18/21 16:46 20 ml ONETIME ONE Administration Lorazepam 1 mg 07/18/21 21:27 Lorazepam 2 Mg/Ml Sdv IVPUSH 07/18/21 21:28 ONETIME ONE Departure - Departure Time of Disposition: 17:19 Sepsis Event Note (ED) - Evaluation Sepsis Screening Result: No Definite Risk - Focused Exam Vital Signs: Vital Signs Temp Pulse Resp BP Pulse Ox 07/18/21 16:30 88 17 90/65 90 L 07/18/21 12:20 96.5 F L 75 16 99/52 L 96 - My Orders Last 24 Hours: My Active Orders 07/18/21 12:27 Sodium Chloride 0.9% [Saline Flush] 10 ml FLUSH ASDIRECTED PRN Sodium Chloride 0.9% [Saline Flush] 2.5 ml FLUSH ASDIRECTED PRN Saline Lock Insert [OM.PC] Stat 07/18/21 12:28 C DIFFICILE AG/TOXIN W/REFLEX [RM] Stat OVA & PARASITES BY IMMUNOASSAY [MREF] Stat STOOL CULTURE/SHIGA TOXIN [MREF] Stat 07/18/21 12:30 CULTURE BLOOD [BC] Stat 07/18/21 13:32 CULTURE URINE [MREF] Stat 07/18/21 14:04 Blood Culture x2 Reflex Set [OM.PC] Stat 07/18/21 14:18 CULTURE BLOOD [BC] Stat 07/18/21 17:16 Consult to Physician [CONS] Stat 07/18/21 17:17 Notify Provider Consults [RC] ASDIRECTED - Assessment/Plan Last 24 Hours: My Active Orders 07/18/21 12:27 Sodium Chloride 0.9% [Saline Flush] 10 ml FLUSH ASDIRECTED PRN Sodium Chloride 0.9% [Saline Flush] 2.5 ml FLUSH ASDIRECTED PRN Saline Lock Insert [OM.PC] Stat 07/18/21 12:28 C DIFFICILE AG/TOXIN W/REFLEX [RM] Stat OVA & PARASITES BY IMMUNOASSAY [MREF] Stat STOOL CULTURE/SHIGA TOXIN [MREF] Stat 07/18/21 12:30 CULTURE BLOOD [BC] Stat 07/18/21 13:32 CULTURE URINE [MREF] Stat 07/18/21 14:04 Blood Culture x2 Reflex Set [OM.PC] Stat 07/18/21 14:18 CULTURE BLOOD [BC] Stat 07/18/21 17:16 Consult to Physician [CONS] Stat 07/18/21 17:17 Notify Provider Consults [RC] ASDIRECTED
--- NOTE | 2021-07-18 15:25 | CT ---
Indication: Periumbilical pain Technique: Nonenhanced axial CT imaging through the abdomen and pelvis. Sagittal and coronal reconstructions are provided. Comparison: CT abdomen pelvis without contrast 08/11/2019 Findings: There is unremarkable noncontrast appearance of the liver, spleen, pancreas, adrenal glands, and kidneys. Cholecystectomy clips are noted. There is normal caliber of the abdominal aorta. No lymphadenopathy is appreciated in the abdomen or pelvis. The urinary bladder is unremarkable. The stomach is mildly distended. There are also multiple distended proximal small bowel loops, measuring up to 3.2 cm. A transition point is not identified, but is favored to reside in the lower abdomen/pelvis. The distal small bowel is decompressed. Findings are suspicious for small bowel obstruction. There is no appreciable small bowel thickening. The appendix is noninflamed. The colon is unremarkable. There is no pneumoperitoneum. There is multilevel lumbar degenerative disc disease with mild levoconvex curvature apex at L3, similar to prior examination. Stable bronchiectasis and scarring are noted in the basilar left lower lobe. There is a 1.5 x 0.8 cm spiculated nodular opacity in the posterior right lower lobe with adjacent scarring, new since 2019. Impression: 1. Findings suspicious for small bowel obstruction. Transition point likely resides in the lower abdomen/pelvis. No evidence of bowel ischemia or perforation. 2. A 1.5 x 0.8 nodular density in the posterior right lower lobe with adjacent scarring, new since 2019. Three-month follow-up chest CT is recommended for surveillance. Alternatively, biopsy and/or PET-CT may be considered. Please note that all CT scans at this facility use dose modulation, iterative reconstruction, and/or weight-based dosing when appropriate to reduce radiation dose to as low as reasonably achievable. Dictated by Bakari De La Cruz MD @ 07/18/2021 3:24:38 PM (Electronically Signed)
[2021-07-18] MEDS ORDERED: Lidocaine 2% Viscous Solution 100 ML Bottle PO ONE (16:45)
[2021-07-18] MEDS ORDERED: Benzocaine 20% Topical Spray UD MUCMEM ONE (16:45)
--- NOTE | 2021-07-18 18:26 | CR ---
Indication: NG placement Technique: Chest 1 view Comparison: Chest x-ray 08/13/2019 Findings/Impression: Cardiovascular and mediastinum: Normal heart size with aortic tortuosity and atherosclerotic calcification. Enteric tube with tip in the body of the stomach. Lungs and pleural space: Lungs are clear. No sign of infiltrate or mass. No sign of pleural effusion. No pneumothorax. Bones and soft tissues: Right upper quadrant surgical clips. Dictated by Francisco Ji MD @ 07/18/2021 6:26:15 PM (Electronically Signed)
--- NOTE | 2021-07-18 19:17 | PCM.CONS ---
H&P History of Present Illness - General Date of Service: 07/18/21 Admit Problem/Dx: Admission Diagnosis/Problem Admission Diagnosis/Problem Small bowel obstruction Source of Information: Patient, Family History Limitations: Reports: No Limitations - History of Present Illness Initial Comments - Free Text/Narative: Patient is an 80-year-old female who presented to the emergency room earlier today complaining of abdominal pain associated with nausea and vomiting. She also has diarrheal stools and states she did have a bowel movement earlier today as well as continues to pass some gas. This is been going on several weeks to the point that she occasionally has emeses well at [employer] and out in public. It is gone to the point that she feels she can no longer tolerate this, though she sought help. She was accompanied by, I believe, a granddaughter jeffy. Onset of Symptoms: Reports: Gradual Duration of Symptoms: Reports: Week(s):, Recurring Location: Reports: Abdomen Quality: Reports: Ache, Dull, Pressure Severity: Moderate Improves with: Reports: None Worsens with: Reports: Eating Context: Reports: Sick Contact Associated Symptoms: Reports: Nausea/Vomiting. Denies: Diaphoresis, Fever/Chills, Headaches, Loss of Appetite, Malaise Middle Epigastric Pain Score (Numeric/FACES): 8 - Related Data Allergies/Adverse Reactions: Allergies Allergy/AdvReac Type Severity Reaction Status Date / Time codeine Allergy Hallucinati Verified 07/18/21 12:20 ons influenza virus vaccine, Allergy Syncope Verified 07/18/21 12:20 specific [Influenza Virus Vacc,Specific] Home Medications: Home Meds Magnesium 500 mg PO BEDTIME 02/22/18 [History] Verapamil HCl [Verapamil Sr] 120 mg PO DAILY PRN 02/22/18 [History] Carbidopa/Levodopa [Carbidopa-Levodopa 25-100 Tab] 25 - 100 mg PO TID 06/29/19 [History] Gabapentin [Neurontin] 100 mg PO BEDTIME 06/29/19 [History] Ibuprofen [Advil] 200 mg PO . 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: Musculoskeletal History: Reports: Other (See Below) Other Musculoskeletal History: sciatica Neurological History: Reports: Other (See Below) Other Neuro History: restless leg syndrome Psychiatric History: Reports: None Endocrine/Metabolic History: Reports: None Hematologic History: Reports: None Immunologic History: Reports: None Oncologic (Cancer) History: Reports: None Dermatologic History: Reports: Other (See Below) Other Dermatologic History: skin cancer nose - Infectious Disease History Infectious Disease History: Reports: Chicken Pox, Measles, Mumps - Past Surgical History Head Surgeries/Procedures: Reports: None HEENT Surgical History: Reports: Other (See Below) GI Surgical History: Reports: Cholecystectomy Other GI Surgeries/Procedures: gallbladder removal 2020 Female Surgical History: Reports: Section, Hysterectomy Social & Family History - Family History Family Medical History: No Pertinent Family History - Caffeine Use Caffeine Use: Reports: Soda - Living Situation & Occupation Living situation: Reports: Occupation: Retired H&P Review of Systems - Review of Systems: Review Of Systems: See Below General: Reports: Decreased Appetite. Denies: Fever, Chills, Malaise, Weakness, Fatigue, Night Sweats, Diaphoresis HEENT: Reports: No Symptoms Pulmonary: Denies: Shortness of Breath, Wheezing, Pleuritic Chest Pain, Cough Cardiovascular: Denies: Chest Pain, Palpitations, Dyspnea on Exertion Gastrointestinal: Reports: Abdominal Pain, Diarrhea, Decreased Appetite, Flatus, Nausea, Vomiting. Denies: Anorexia, Black Stool, Constipation, Difficulty Swallowing, Distension, Hematemesis, Hematochezia, Melena, Stool Incontinence Genitourinary: Denies: Dysuria, Frequency, Burning, Pain, Urgency Musculoskeletal: Reports: No Symptoms Skin: Denies: Cyanosis, Jaundice, Mottled, Pallor Psychiatric: Denies: Confusion, Depression, Mood Lability, Anxiety Neurological: Reports: No Symptoms Hematologic/Lymphatic: Reports: No Symptoms Immunologic: Reports: No Symptoms Exam - Exam Exam: See Below - Vital Signs Vital Signs: Last Vital Signs Temp 96.5 F L 07/18/21 12:20 Pulse 88 07/18/21 16:30 Resp 17 07/18/21 16:30 BP 90/65 07/18/21 16:30 Pulse Ox 90 L 07/18/21 16:30 Weight: 122 lb - Exam Quality Assessment: Other (Nasogastric tube). No: Supplemental Oxygen General: Alert, Oriented, Cooperative, Mild Distress HEENT: Conjunctiva Clear, Nares Patent, Pupils Equal, Pupils Reactive. No: Scleral Icterus Neck: Supple, Trachea Midline Lungs: Clear to Auscultation, Normal Respiratory Effort. No: Wheezing Cardiovascular: Regular Rate, Regular Rhythm, Normal S1, Normal S2. No: Tachycardia, Systolic Murmur, Diastolic Murmur GI/Abdominal Exam: Normal Bowel Sounds, Soft, No Distention, Tender (Right lower abdomen). No: Guarding, Rigid, Rebound, Mass (Female) Exam: Deferred Rectal (Female) Exam: Deferred Back Exam: Normal Inspection Extremities: Normal Inspection, Normal Range of Motion Peripheral Pulses: 4+: Posterior Tibial (L), Posterior Tibial (R), Dorsalis Pedis (L), Dorsalis Pedis (R) Skin: Warm, Dry, Intact Neurological: Cranial Nerves Intact, Reflexes Equal Bilateral Psychiatric: Alert, Normal Affect, Normal Mood - Patient Data Lab Results Last 24 hrs: Laboratory Results - last 24 hr 07/18/21 07/18/21 07/18/21 Range/Units 12:30 12:30 13:32 WBC 5.74 (4.0-11.0) K/uL RBC 3.99 L (4.30-5.90) M/uL Hgb 12.5 (12.0-16.0) g/dL Hct 38.2 (36.0-46.0) % MCV 95.7 (80.0-98.0) fL MCH 31.3 (27.0-32.0) pg MCHC 32.7 (31.0-37.0) g/dL RDW Std Deviation 52.3 (28.0-62.0) fl RDW Coeff of Beb[place] 15 (11.0-15.0) % Plt Count 145 L (150-400) K/uL MPV 9.10 (7.40-12.00) fL Neut % (Auto) 57.3 (48.0-80.0) % Lymph % (Auto) 25.6 (16.0-40.0) % [place] % (Auto) 9.9 (0.0-15.0) % Eos % (Auto) 7.0 (0.0-7.0) % Baso % (Auto) 0.2 (0.0-1.5) % Neut # (Auto) 3.3 (1.4-5.7) K/uL Lymph # (Auto) 1.5 (0.6-2.4) K/uL [place] # (Auto) 0.6 (0.0-0.8) K/uL Eos # (Auto) 0.4 (0.0-0.7) K/uL Baso # (Auto) 0.0 (0.0-0.1) K/uL Nucleated RBC % 0.0 /100WBC Nucleated RBCs # 0 K/uL Sodium 138 (136-145) mmol/L Potassium 3.9 (3.5-5.1) mmol/L Chloride 104 (98-107) mmol/L Carbon Dioxide 23.3 (21.0-32.0) mmol/L BUN 33 H (7.0-18.0) mg/dL Creatinine 1.3 H (0.6-1.0) mg/dL Est Cr Clr Drug Dosing TNP Estimated GFR (MDRD) 39.3 ml/min Glucose 107 H (74-106) mg/dL Lactic Acid (0.4-2.0) mmol/L Calcium 8.8 (8.5-10.1) mg/dL Total Bilirubin 0.3 (0.2-1.0) mg/dL AST 32 (15-37) IU/L ALT 13 L (14-63) IU/L Alkaline Phosphatase 118 H (46-116) U/L Troponin I < 0.050 (0.000-0.056) ng/mL Total Protein 7.2 (6.4-8.2) g/dL Albumin 3.4 (3.4-5.0) g/dL Globulin 3.8 (2.6-4.0) g/dL Albumin/Globulin Ratio 0.9 (0.9-1.6) Lipase 190 (73-393) U/L Urine Color YELLOW Urine Appearance SLT CLOUDY Urine pH 6.0 (5.0-8.0) Ur Specific [place] 1.020 (1.001-1.035) Urine Protein NEGATIVE (NEGATIVE) mg/dL Urine Glucose (UA) NEGATIVE (NEGATIVE) mg/dL Urine Ketones TRACE H (NEGATIVE) mg/dL Urine Occult Blood SMALL H (NEGATIVE) Urine Nitrite POSITIVE H (NEGATIVE) Urine Bilirubin NEGATIVE (NEGATIVE) Urine Urobilinogen 0.2 (<2.0) EU/dL Ur Leukocyte Esterase MODERATE H (NEGATIVE) Urine RBC 0-1 (0-2/HPF) Urine WBC 10-15 (0-5/HPF) Ur Epithelial Cells OCCASIONAL (NONE-FEW) Urine Bacteria 3+ H (NEGATIVE) Urine Mucus LIGHT (NONE-MOD) SARS-CoV-2 RNA (LATONIA) (NEGATIVE) 07/18/21 07/18/21 Range/Units 13:45 14:18 WBC (4.0-11.0) K/uL RBC (4.30-5.90) M/uL Hgb (12.0-16.0) g/dL Hct (36.0-46.0) % MCV (80.0-98.0) fL MCH (27.0-32.0) pg MCHC (31.0-37.0) g/dL RDW Std Deviation (28.0-62.0) fl RDW Coeff of Beb[place] (11.0-15.0) % Plt Count (150-400) K/uL MPV (7.40-12.00) fL Neut % (Auto) (48.0-80.0) % Lymph % (Auto) (16.0-40.0) % [place] % (Auto) (0.0-15.0) % Eos % (Auto) (0.0-7.0) % Baso % (Auto) (0.0-1.5) % Neut # (Auto) (1.4-5.7) K/uL Lymph # (Auto) (0.6-2.4) K/uL [place] # (Auto) (0.0-0.8) K/uL Eos # (Auto) (0.0-0.7) K/uL Baso # (Auto) (0.0-0.1) K/uL Nucleated RBC % /100WBC Nucleated RBCs # K/uL Sodium (136-145) mmol/L Potassium (3.5-5.1) mmol/L Chloride (98-107) mmol/L Carbon Dioxide (21.0-32.0) mmol/L BUN (7.0-18.0) mg/dL Creatinine (0.6-1.0) mg/dL Est Cr Clr Drug Dosing Estimated GFR (MDRD) ml/min Glucose (74-106) mg/dL Lactic Acid 1.5 (0.4-2.0) mmol/L Calcium (8.5-10.1) mg/dL Total Bilirubin (0.2-1.0) mg/dL AST (15-37) IU/L ALT (14-63) IU/L Alkaline Phosphatase (46-116) U/L Troponin I (0.000-0.056) ng/mL Total Protein (6.4-8.2) g/dL Albumin (3.4-5.0) g/dL Globulin (2.6-4.0) g/dL Albumin/Globulin Ratio (0.9-1.6) Lipase (73-393) U/L Urine Color Urine Appearance Urine pH (5.0-8.0) Ur Specific [place] (1.001-1.035) Urine Protein (NEGATIVE) mg/dL Urine Glucose (UA) (NEGATIVE) mg/dL Urine Ketones (NEGATIVE) mg/dL Urine Occult Blood (NEGATIVE) Urine Nitrite (NEGATIVE) Urine Bilirubin (NEGATIVE) Urine Urobilinogen (<2.0) EU/dL Ur Leukocyte Esterase (NEGATIVE) Urine RBC (0-2/HPF) Urine WBC (0-5/HPF) Ur Epithelial Cells (NONE-FEW) Urine Bacteria (NEGATIVE) Urine Mucus (NONE-MOD) SARS-CoV-2 RNA (LATONIA) NEGATIVE (NEGATIVE) Result Diagrams: 07/18/21 12:30 07/18/21 12:30 Imaging Impressions Last 24 hrs: CT scan and chest x-ray have been personally reviewed, along with the CT report. I agree she appears to have a partial small bowel obstruction with a transition point. The chest x-ray does reveal the NG tube in appropriate position. Sepsis Event Note - Evaluation Sepsis Screening Result: No Definite Risk - Focused Exam Vital Signs: Vital Signs Temp Pulse Resp BP Pulse Ox 07/18/21 16:30 88 17 90/65 90 L 07/18/21 12:20 96.5 F L 75 16 99/52 L 96 Consult PN Assessment/Plan Procedures: Procedures ALANINE AMINO (ALT) (SGPT) (08/13/19) ASSAY ALKALINE PHOSPHATASE (08/13/19) ASSAY OF AMYLASE (02/21/18) ASSAY OF LACTIC ACID (06/29/19) ASSAY OF LIPASE (08/13/19) ASSAY OF MAGNESIUM (08/13/19) ASSAY OF PHOSPHORUS (08/13/19) ASSAY OF TROPONIN QUANT (08/13/19) BILIRUBIN TOTAL (08/13/19) BLOOD CULTURE FOR BACTERIA (06/29/19) BLOOD TYPING SEROLOGIC ABO (02/21/18) BLOOD TYPING SEROLOGIC RH(D) (02/21/18) COMPLETE CBC AUTOMATED (02/21/18) COMPLETE CBC W/AUTO DIFF WBC (08/13/19) COMPREHEN METABOLIC PANEL (08/13/19) CT ABD & PELV W/CONTRAST (06/17/18) CT ABD & PELVIS W/O CONTRAST (08/13/19) CT HEAD/BRAIN W/O DYE (06/29/19) CT NECK SPINE W/O DYE (02/21/18) CT THORAX DX C- (08/13/19) DRAIN/INJ JOINT/BURSA W/O US (08/29/15) DRAIN/INJ JOINT/BURSA W/O US (01/16/15) ECHO EXAM OF ABDOMEN (08/13/19) ELECTROCARDIOGRAM TRACING (08/13/19) EMERGENCY DEPT VISIT (08/13/19) EMERGENCY DEPT VISIT (06/21/19) EMERGENCY DEPT VISIT (02/21/18) EMERGENCY DEPT VISIT (02/18/18) EMERGENCY DEPT VISIT (01/01/14) GLUCOSE BLOOD TEST (06/21/19) HEMOGLOBIN (02/21/18) HYDRATE IV INFUSION ADD-ON (08/13/19) METABOLIC PANEL TOTAL CA (08/13/19) MICROBE SUSCEPTIBLE SABAS (06/29/19) OFFICE O/P EST LOW 20-29 MIN (08/29/15) OFFICE O/P NEW LOW 30-44 MIN (05/11/14) PROTHROMBIN TIME (08/13/19) PT EVAL LOW COMPLEX 20 MIN (06/29/19) RBC ANTIBODY IDENTIFICATION (02/21/18) RBC ANTIBODY SCREEN (02/21/18) ROUTINE VENIPUNCTURE (08/13/19) THER/PROPH/DIAG INJ IV PUSH (08/13/19) THER/PROPH/DIAG INJ SC/IM (08/13/19) TRANSFERASE (AST) (SGOT) (08/13/19) TX/PRO/DX INJ NEW DRUG ADDON (08/13/19) TX/PRO/DX INJ SAME DRUG TANK CAR RECONDITIONER (08/13/19) URINALYSIS AUTO W/SCOPE (08/13/19) URINE BACTERIA CULTURE (06/29/19) URINE CULTURE/COLONY COUNT (06/29/19) X-RAY EXAM ABDOMEN 1 VIEW (02/21/18) X-RAY EXAM CHEST 1 VIEW (08/13/19) X-RAY EXAM CHEST 2 VIEWS (08/13/19) X-RAY EXAM NECK SPINE 2-3 VW (02/21/18) X-RAY EXAM OF ABDOMEN (01/01/14) X-RAY EXAM OF FOREARM (02/21/18) X-RAY EXAM OF HAND (10/16/14) X-RAY EXAM OF LOWER LEG (02/21/18) X-RAY EXAM OF PELVIS (02/21/18) X-RAY EXAM OF SHOULDER (06/21/19) (1) Small bowel obstruction SNOMED Code(s): 337531866 Code(s): K56.609 - UNSP INTESTNL OBST, UNSP TO PARTIAL VERSUS COMPLETE OBST Priority: High Current Visit: Yes (2) UTI (urinary tract infection) SNOMED Code(s): 66396929 Code(s): N39.0 - URINARY TRACT INFECTION, SITE NOT SPECIFIED Priority: High Current Visit: Yes Qualifiers: Urinary tract infection type: site unspecified Hematuria presence: without hematuria Qualified Code(s): N39.0 - Urinary tract infection, site not specified (3) Abdominal pain SNOMED Code(s): 00751822 Code(s): R10.9 - UNSPECIFIED ABDOMINAL PAIN Priority: Medium Current Visit: No Problem List Initiated/Reviewed/Updated: Yes Plan: I agree with the diagnosis of a partial small bowel obstruction. We'll see what the NG tube output does over the next few days. I think she should have daily flat and upright abdominal films to follow the course of the obstruction. She should be kept nothing by mouth, but encouraged to be up and active. She could certainly be allowed ice chips and throat lozenges to ease the discomfort of the NG tube. I would leave the NG tube to suction for the time being. Consideration should also be given to obtaining a Gastrografin study to see if the contrast will move beyond what appears to be a point of obstruction. Unfortunately, without a radiologist that might require transfer, but that would be much safer for the patient, than undergoing a laparotomy.
[2021-07-18] MEDS ORDERED: Morphine 2 MG/ML SYRINGE IVPUSH PRN (20:07)
[2021-07-18] MEDS ORDERED: Ondansetron 4 MG/2 ML SDV IVPUSH PRN (20:07)
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
[2021-07-18] MEDS: Sodium Chloride 0.9% 1,000 ML IV SCH (20:40)
[2021-07-18] MEDS ORDERED: LORazepam 2 MG/ML SDV IVPUSH ONE (21:27)
[2021-07-18] MEDS ORDERED: Enoxaparin 30 MG/0.3 ML Syringe SUBCUT SCH (22:00)
[2021-07-19] MEDS ORDERED: Haloperidol Lactate 5 MG/ML SDV IM ONE (00:11)
[2021-07-19] MEDS ORDERED: diphenhydrAMINE 50 MG/ML SDV IVPUSH ONE (00:12)
[2021-07-19] MEDS: Sodium Chloride 0.9% 1,000 ML IV SCH (06:10)
[2021-07-19 06:55] LABS: CARBON DIOXIDE,CO2 19.1 mmol/L (21.0-32.0); POTASSIUM,K 4.2 mmol/L (3.5-5.1)
--- NOTE | 2021-07-19 11:15 | PCM.CONSN ---
- General Info Date of Service: 07/19/21 Admission Dx/Problem (Free Text): Admission Diagnosis/Problem Admission Diagnosis/Problem Partial small bowel obstruction Subjective Update: Patient states she is feeling much better. She denies any abdominal pain or tenderness this morning. She states she is passing gas and is having multiple loose stools. Her only complaint is of the nasogastric tube. Functional Status: Reports: Pain Controlled, Ambulating, Urinating - Review of Systems General: Reports: Appetite. Denies: Fever, Weakness, Fatigue, Malaise, Chills HEENT: Reports: No Symptoms Pulmonary: Denies: Shortness of Breath, Cough Cardiovascular: Denies: Chest Pain, Palpitations Gastrointestinal: Reports: Diarrhea, Flatus. Denies: Abdominal Pain, Hematochezia, Melena, Nausea, Vomiting Genitourinary: Denies: Dysuria, Frequency, Burning, Pain, Urgency Musculoskeletal: Reports: No Symptoms Skin: Denies: Cyanosis, Jaundice, Mottled, Pallor, Diaphoresis Neurological: Reports: No Symptoms Psychiatric: Reports: No Symptoms - Patient Data Vitals - Most Recent: Last Vital Signs Temp 98.6 F 07/19/21 08:30 Pulse 87 07/19/21 08:30 Resp 15 07/19/21 08:30 BP 136/61 07/19/21 08:30 Pulse Ox 93 L 07/19/21 08:30 Weight - Most Recent: 124 lb 1.6 oz I&O - Last 24 Hours: Intake & Output 07/18/21 07/19/21 07/19/21 19:59 03:59 11:59 Intake Total 859 Output Total 650 Balance 209 Imaging Impressions - Last 24 Hours: No films were ordered. Lab Results Last 24 Hours: Laboratory Results - last 24 hr 07/18/21 07/18/21 07/18/21 Range/Units 12:30 12:30 13:32 WBC 5.74 (4.0-11.0) K/uL RBC 3.99 L (4.30-5.90) M/uL Hgb 12.5 (12.0-16.0) g/dL Hct 38.2 (36.0-46.0) % MCV 95.7 (80.0-98.0) fL MCH 31.3 (27.0-32.0) pg MCHC 32.7 (31.0-37.0) g/dL RDW Std Deviation 52.3 (28.0-62.0) fl RDW Coeff of [place]eb[place] 15 (11.0-15.0) % Plt Count 145 L (150-400) K/uL MPV 9.10 (7.40-12.00) fL Neut % (Auto) 57.3 (48.0-80.0) % Lymph % (Auto) 25.6 (16.0-40.0) % [place] % (Auto) 9.9 (0.0-15.0) % Eos % (Auto) 7.0 (0.0-7.0) % Baso % (Auto) 0.2 (0.0-1.5) % Neut # (Auto) 3.3 (1.4-5.7) K/uL Lymph # (Auto) 1.5 (0.6-2.4) K/uL [place] # (Auto) 0.6 (0.0-0.8) K/uL Eos # (Auto) 0.4 (0.0-0.7) K/uL Baso # (Auto) 0.0 (0.0-0.1) K/uL Nucleated RBC % 0.0 /100WBC Nucleated RBCs # 0 K/uL Sodium 138 (136-145) mmol/L Potassium 3.9 (3.5-5.1) mmol/L Chloride 104 (98-107) mmol/L Carbon Dioxide 23.3 (21.0-32.0) mmol/L BUN 33 H (7.0-18.0) mg/dL Creatinine 1.3 H (0.6-1.0) mg/dL Est Cr Clr Drug Dosing TNP Estimated GFR (MDRD) 39.3 ml/min Glucose 107 H (74-106) mg/dL Lactic Acid (0.4-2.0) mmol/L Calcium 8.8 (8.5-10.1) mg/dL Total Bilirubin 0.3 (0.2-1.0) mg/dL AST 32 (15-37) IU/L ALT 13 L (14-63) IU/L Alkaline Phosphatase 118 H (46-116) U/L Troponin I < 0.050 (0.000-0.056) ng/mL Total Protein 7.2 (6.4-8.2) g/dL Albumin 3.4 (3.4-5.0) g/dL Globulin 3.8 (2.6-4.0) g/dL Albumin/Globulin Ratio 0.9 (0.9-1.6) Lipase 190 (73-393) U/L Urine Color YELLOW Urine Appearance SLT CLOUDY Urine pH 6.0 (5.0-8.0) Ur Specific [place] 1.020 (1.001-1.035) Urine Protein NEGATIVE (NEGATIVE) mg/dL Urine Glucose (UA) NEGATIVE (NEGATIVE) mg/dL Urine Ketones TRACE H (NEGATIVE) mg/dL Urine Occult Blood SMALL H (NEGATIVE) Urine Nitrite POSITIVE H (NEGATIVE) Urine Bilirubin NEGATIVE (NEGATIVE) Urine Urobilinogen 0.2 (<2.0) EU/dL Ur Leukocyte Esterase MODERATE H (NEGATIVE) Urine RBC 0-1 (0-2/HPF) Urine WBC 10-15 (0-5/HPF) Ur Epithelial Cells OCCASIONAL (NONE-FEW) Urine Bacteria 3+ H (NEGATIVE) Urine Mucus LIGHT (NONE-MOD) SARS-CoV-2 RNA (LATONIA) (NEGATIVE) 07/18/21 07/18/21 07/19/21 Range/Units 13:45 14:18 06:05 WBC 6.17 (4.0-11.0) K/uL RBC 3.61 L (4.30-5.90) M/uL Hgb 11.5 L (12.0-16.0) g/dL Hct 34.8 L (36.0-46.0) % MCV 96.4 (80.0-98.0) fL MCH 31.9 (27.0-32.0) pg MCHC 33.0 (31.0-37.0) g/dL RDW Std Deviation 52.7 (28.0-62.0) fl RDW Coeff of [place]eb[place] 15 (11.0-15.0) % Plt Count 144 L (150-400) K/uL MPV 8.80 (7.40-12.00) fL Neut % (Auto) 67.7 (48.0-80.0) % Lymph % (Auto) 20.4 (16.0-40.0) % [place] % (Auto) 9.2 (0.0-15.0) % Eos % (Auto) 2.4 (0.0-7.0) % Baso % (Auto) 0.3 (0.0-1.5) % Neut # (Auto) 4.2 (1.4-5.7) K/uL Lymph # (Auto) 1.3 (0.6-2.4) K/uL [place] # (Auto) 0.6 (0.0-0.8) K/uL Eos # (Auto) 0.2 (0.0-0.7) K/uL Baso # (Auto) 0.0 (0.0-0.1) K/uL Nucleated RBC % 0.0 /100WBC Nucleated RBCs # 0 K/uL Sodium (136-145) mmol/L Potassium (3.5-5.1) mmol/L Chloride (98-107) mmol/L Carbon Dioxide (21.0-32.0) mmol/L BUN (7.0-18.0) mg/dL Creatinine (0.6-1.0) mg/dL Est Cr Clr Drug Dosing Estimated GFR (MDRD) ml/min Glucose (74-106) mg/dL Lactic Acid 1.5 (0.4-2.0) mmol/L Calcium (8.5-10.1) mg/dL Total Bilirubin (0.2-1.0) mg/dL AST (15-37) IU/L ALT (14-63) IU/L Alkaline Phosphatase (46-116) U/L Troponin I (0.000-0.056) ng/mL Total Protein (6.4-8.2) g/dL Albumin (3.4-5.0) g/dL Globulin (2.6-4.0) g/dL Albumin/Globulin Ratio (0.9-1.6) Lipase (73-393) U/L Urine Color Urine Appearance Urine pH (5.0-8.0) Ur Specific [place] (1.001-1.035) Urine Protein (NEGATIVE) mg/dL Urine Glucose (UA) (NEGATIVE) mg/dL Urine Ketones (NEGATIVE) mg/dL Urine Occult Blood (NEGATIVE) Urine Nitrite (NEGATIVE) Urine Bilirubin (NEGATIVE) Urine Urobilinogen (<2.0) EU/dL Ur Leukocyte Esterase (NEGATIVE) Urine RBC (0-2/HPF) Urine WBC (0-5/HPF) Ur Epithelial Cells (NONE-FEW) Urine Bacteria (NEGATIVE) Urine Mucus (NONE-MOD) SARS-CoV-2 RNA (LATONIA) NEGATIVE (NEGATIVE) 07/19/21 Range/Units 06:05 WBC (4.0-11.0) K/uL RBC (4.30-5.90) M/uL Hgb (12.0-16.0) g/dL Hct (36.0-46.0) % MCV (80.0-98.0) fL MCH (27.0-32.0) pg MCHC (31.0-37.0) g/dL RDW Std Deviation (28.0-62.0) fl RDW Coeff of [place]eb[place] (11.0-15.0) % Plt Count (150-400) K/uL MPV (7.40-12.00) fL Neut % (Auto) (48.0-80.0) % Lymph % (Auto) (16.0-40.0) % [place] % (Auto) (0.0-15.0) % Eos % (Auto) (0.0-7.0) % Baso % (Auto) (0.0-1.5) % Neut # (Auto) (1.4-5.7) K/uL Lymph # (Auto) (0.6-2.4) K/uL [place] # (Auto) (0.0-0.8) K/uL Eos # (Auto) (0.0-0.7) K/uL Baso # (Auto) (0.0-0.1) K/uL Nucleated RBC % /100WBC Nucleated RBCs # K/uL Sodium 142 (136-145) mmol/L Potassium 4.2 (3.5-5.1) mmol/L Chloride 108 H (98-107) mmol/L Carbon Dioxide 19.1 L (21.0-32.0) mmol/L BUN 29 H (7.0-18.0) mg/dL Creatinine 1.2 H (0.6-1.0) mg/dL Est Cr Clr Drug Dosing 31.75 Estimated GFR (MDRD) 43.1 ml/min Glucose 96 (74-106) mg/dL Lactic Acid (0.4-2.0) mmol/L Calcium 8.0 L (8.5-10.1) mg/dL Total Bilirubin 0.3 (0.2-1.0) mg/dL AST 86 H (15-37) IU/L ALT 74 H (14-63) IU/L Alkaline Phosphatase 149 H (46-116) U/L Troponin I (0.000-0.056) ng/mL Total Protein 6.8 (6.4-8.2) g/dL Albumin 3.3 L (3.4-5.0) g/dL Globulin 3.5 (2.6-4.0) g/dL Albumin/Globulin Ratio 0.9 (0.9-1.6) Lipase (73-393) U/L Urine Color Urine Appearance Urine pH (5.0-8.0) Ur Specific [place] (1.001-1.035) Urine Protein (NEGATIVE) mg/dL Urine Glucose (UA) (NEGATIVE) mg/dL Urine Ketones (NEGATIVE) mg/dL Urine Occult Blood (NEGATIVE) Urine Nitrite (NEGATIVE) Urine Bilirubin (NEGATIVE) Urine Urobilinogen (<2.0) EU/dL Ur Leukocyte Esterase (NEGATIVE) Urine RBC (0-2/HPF) Urine WBC (0-5/HPF) Ur Epithelial Cells (NONE-FEW) Urine Bacteria (NEGATIVE) Urine Mucus (NONE-MOD) SARS-CoV-2 RNA (LATONIA) (NEGATIVE) Esa Results Last 24 Hours: Microbiology 07/18/21 22:30 C. difficile Antigen & Toxins A,B - Final Stool / Feces Med Orders - Current: Current Medications Enoxaparin Sodium (Enoxaparin 30 Mg/0.3 Ml Syringe) 30 mg SUBCUT Q24H [facility] Last Admin: 07/18/21 22:28 Dose: 30 mg Documented by: Sodium Chloride (Normal Saline) 1,000 mls @ 125 mls/hr IV ASDIRECTED [facility] Last Admin: 07/19/21 06:10 Dose: 125 mls/hr Documented by: Ceftriaxone Sodium/Dextrose (Rocephin In Dextrose,Iso-Osm 1 Gm/50 Ml) 50 mls @ 100 mls/hr IV Q24H [facility] Morphine Sulfate (Morphine 2 Mg/Ml Syringe) 2 mg IVPUSH Q2H PRN PRN Reason: Pain (severe 7-10) Stop: 07/19/21 20:07 Ondansetron HCl (Ondansetron 4 Mg/2 Ml Sdv) 4 mg IVPUSH Q4H PRN PRN Reason: Nausea Sodium Chloride (Sodium Chloride 0.9% 10 Ml Syringe) 10 ml FLUSH ASDIRECTED PRN PRN Reason: Keep Vein Open Last Admin: 07/18/21 13:43 Dose: 10 ml Documented by: Sodium Chloride (Sodium Chloride 0.9% 2.5 Ml Syringe) 2.5 ml FLUSH ASDIRECTED PRN PRN Reason: Keep Vein Open Last Admin: 07/18/21 13:43 Dose: 2.5 ml Documented by: Discontinued Medications Benzocaine (Benzocaine 20% Topical [place] Ud) 1 each MUCMEM ONETIME ONE Stop: 07/18/21 16:46 Last Admin: 07/18/21 17:42 Dose: 1 each Documented by: Diphenhydramine HCl (Diphenhydramine 50 Mg/Ml Sdv) 25 mg IVPUSH ONETIME ONE Stop: 07/19/21 00:13 Last Admin: 07/19/21 00:29 Dose: 25 mg Documented by: Haloperidol Lactate (Haloperidol Lactate 5 Mg/Ml Sdv) 1 mg IM ONETIME ONE Stop: 07/19/21 00:12 Last Admin: 07/19/21 00:28 Dose: 1 mg Documented by: Sodium Chloride (Normal Saline) 1,000 mls @ 125 mls/hr IV ASDIRECTED [facility] Last Admin: 07/18/21 14:19 Dose: 125 mls/hr Documented by: Ceftriaxone Sodium/Dextrose 1 (gm/ Premix) 50 mls @ 100 mls/hr IV ONETIME ONE Stop: 07/18/21 14:33 Last Admin: 07/18/21 14:19 Dose: 100 mls/hr Documented by: Lidocaine HCl (Lidocaine 2% Viscous Solution 100 Ml Bottle) 20 ml PO ONETIME ONE Stop: 07/18/21 16:46 Last Admin: 07/18/21 17:43 Dose: 20 ml Documented by: Lorazepam (Lorazepam 2 Mg/Ml Sdv) 1 mg IVPUSH ONETIME ONE Stop: 07/18/21 21:28 Last Admin: 07/18/21 22:27 Dose: 1 mg Documented by: - Exam Quality Assessment: No: Supplemental Oxygen, Central Line/PICC General: Alert, Oriented, Cooperative, No Acute Distress HEENT: Pupils Equal, Pupils Reactive, EOMI Neck: Supple Lungs: Clear to Auscultation, Normal Respiratory Effort Cardiovascular: Regular Rate, Regular Rhythm GI/Abdominal Exam: Normal Bowel Sounds, Soft, Non-Tender, No Distention, No Mass. No: Guarding, Rigid, Rebound (Female) Exam: Deferred Back Exam: Normal Inspection Extremities: Normal Inspection, No Pedal Edema Skin: Warm, Dry, Intact Psy/Mental Status: Alert, Normal Affect, Normal Mood Sepsis Event Note - Evaluation Sepsis Screening Result: No Definite Risk - Focused Exam Vital Signs: Vital Signs Temp Pulse Resp BP Pulse Ox 07/19/21 08:30 98.6 F 87 15 136/61 93 L 07/19/21 04:00 96.0 F L 100 18 120/62 91 L 07/18/21 23:55 97.8 F 96 17 105/59 L 96 Consult PN Assessment/Plan Procedures: Procedures ALANINE AMINO (ALT) (SGPT) (08/13/19) ASSAY ALKALINE PHOSPHATASE (08/13/19) ASSAY OF AMYLASE (02/21/18) ASSAY OF LACTIC ACID (06/29/19) ASSAY OF LIPASE (08/13/19) ASSAY OF MAGNESIUM (08/13/19) ASSAY OF PHOSPHORUS (08/13/19) ASSAY OF TROPONIN QUANT (08/13/19) BILIRUBIN TOTAL (08/13/19) BLOOD CULTURE FOR BACTERIA (06/29/19) BLOOD TYPING SEROLOGIC ABO (02/21/18) BLOOD TYPING SEROLOGIC RH(D) (02/21/18) COMPLETE CBC AUTOMATED (02/21/18) COMPLETE CBC W/AUTO DIFF WBC (08/13/19) COMPREHEN METABOLIC PANEL (08/13/19) CT ABD & PELV W/CONTRAST (06/17/18) CT ABD & PELVIS W/O CONTRAST (08/13/19) CT HEAD/BRAIN W/O DYE (06/29/19) CT NECK SPINE W/O DYE (02/21/18) CT THORAX DX C- (08/13/19) DRAIN/INJ JOINT/BURSA W/O US (08/29/15) DRAIN/INJ JOINT/BURSA W/O US (01/16/15) ECHO EXAM OF ABDOMEN (08/13/19) ELECTROCARDIOGRAM TRACING (08/13/19) EMERGENCY DEPT VISIT (08/13/19) EMERGENCY DEPT VISIT (06/21/19) EMERGENCY DEPT VISIT (02/21/18) EMERGENCY DEPT VISIT (02/18/18) EMERGENCY DEPT VISIT (01/01/14) GLUCOSE BLOOD TEST (06/21/19) HEMOGLOBIN (02/21/18) HYDRATE IV INFUSION ADD-ON (08/13/19) METABOLIC PANEL TOTAL CA (08/13/19) MICROBE SUSCEPTIBLE ESA (06/29/19) OFFICE O/P EST LOW 20-29 MIN (08/29/15) OFFICE O/P NEW LOW 30-44 MIN (05/11/14) PROTHROMBIN TIME (08/13/19) PT EVAL LOW COMPLEX 20 MIN (06/29/19) RBC ANTIBODY IDENTIFICATION (02/21/18) RBC ANTIBODY SCREEN (02/21/18) ROUTINE VENIPUNCTURE (08/13/19) THER/PROPH/DIAG INJ IV PUSH (08/13/19) THER/PROPH/DIAG INJ SC/IM (08/13/19) TRANSFERASE (AST) (SGOT) (08/13/19) TX/PRO/DX INJ NEW DRUG ADDON (08/13/19) TX/PRO/DX INJ SAME DRUG EXECUTIVE COORDINATOR (08/13/19) URINALYSIS AUTO W/SCOPE (08/13/19) URINE BACTERIA CULTURE (06/29/19) URINE CULTURE/COLONY COUNT (06/29/19) X-RAY EXAM ABDOMEN 1 VIEW (02/21/18) X-RAY EXAM CHEST 1 VIEW (08/13/19) X-RAY EXAM CHEST 2 VIEWS (08/13/19) X-RAY EXAM NECK SPINE 2-3 VW (02/21/18) X-RAY EXAM OF ABDOMEN (01/01/14) X-RAY EXAM OF FOREARM (02/21/18) X-RAY EXAM OF HAND (10/16/14) X-RAY EXAM OF LOWER LEG (02/21/18) X-RAY EXAM OF PELVIS (02/21/18) X-RAY EXAM OF SHOULDER (06/21/19) (1) Small bowel obstruction SNOMED Code(s): 038197627 Code(s): K56.609 - UNSP INTESTNL OBST, UNSP TO PARTIAL VERSUS COMPLETE OBST Priority: High Current Visit: Yes (2) UTI (urinary tract infection) SNOMED Code(s): 40712162 Code(s): N39.0 - URINARY TRACT INFECTION, SITE NOT SPECIFIED Priority: High Current Visit: Yes Qualifiers: Urinary tract infection type: site unspecified Hematuria presence: without hematuria Qualified Code(s): N39.0 - Urinary tract infection, site not specified (3) Abdominal pain SNOMED Code(s): 93390922 Code(s): R10.9 - UNSPECIFIED ABDOMINAL PAIN Priority: Medium Current Visit: No Problem List Initiated/Reviewed/Updated: Yes Plan: Clinically, her small bowel obstruction has resolved. I think it would be safe to remove her nasogastric tube and let her start on clear to full liquids diet. I think she should stay on full liquids to a soft diet for at least 48 hours. If she continues to do well, she could conceivably go home later today or tomorrow. She should continue her care with Dr. Carlton. I would also resume her medications, especially for her restless leg syndrome.
[2021-07-19] MEDS ORDERED: cefTRIAXone 1 GM in Sodium Chloride 0.9% 50 ML IV SCH (14:00)
[2021-07-19] MEDS ORDERED: Carbidopa/Levodopa 25-100 MG Tab PO SCH (15:43)
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
== END 2021-07-19 18:40 | disposition home or self-care (01) ==
LOC: MW.ED 12:16 → MW.MS 17:17
PROVIDERS: ADMIT Internal Medicine; ATTEND Internal Medicine
DX: K56.609 Unspecified intestinal obstruction, unspecified as to partial versus complete obstruction (principal); E78.00 Pure hypercholesterolemia, unspecified; N39.0 Urinary tract infection, site not specified; I12.9 Hypertensive chronic kidney disease with stage 1 through stage 4 chronic kidney disease, or unspecified chronic kidney disease; N18.9 Chronic kidney disease, unspecified; Z20.822 Contact with and (suspected) exposure to COVID-19; Z88.5 Allergy status to narcotic agent; Z88.7 Allergy status to serum and vaccine; Z79.899 Other long term (current) drug therapy; Z90.49 Acquired absence of other specified parts of digestive tract
CPT/HCPCS: 36415; 71045; 74176; 80053; 81001; 83605; 83690; 84484; 85025; 87040; 87045; 87046; 87086; 87088; 87186; 87324; 87328; 87329; 87449; 87899; 96365; 96372; 96375; 99285; A9270; G0378; J0696; J1200; J1630; J1650; J2060; J7030; U0002; 93010; 99203; 99213; 99217; 99219

== ENCOUNTER 2022-02-10 11:52 | Emergency (ER) | payer MEDICARE, BC ==
[2022-02-10 13:49] LABS: BLOOD UREA NITROGEN,BUN 39 mg/dL (7.0-18.0); CARBON DIOXIDE,CO2 19.5 mmol/L (21.0-32.0); CHLORIDE,CL 106 mmol/L (98-107); GLUCOSE RANDOM 118 mg/dL (74-106); POTASSIUM,K 4.2 mmol/L (3.5-5.1); SODIUM,NA 137 mmol/L (136-145)
== END 2022-02-10 14:24 | disposition home or self-care (01) ==
LOC: MW.ED 11:52
DX: E86.0 Dehydration (principal); I10 Essential (primary) hypertension; Z90.49 Acquired absence of other specified parts of digestive tract; Z90.710 Acquired absence of both cervix and uterus; Z79.899 Other long term (current) drug therapy; Z88.7 Allergy status to serum and vaccine; Z88.5 Allergy status to narcotic agent
CPT/HCPCS: 36415; 71045; 71045-26; 80053; 81001; 82803; 83880; 84484; 85025; 93005; 93010; 99284; 99284-25

== ENCOUNTER 2022-04-30 09:43 | Emergency (ER) | payer MEDICARE, BC | END 2022-04-30 10:34 | disposition home or self-care (01) | LOC: MW.ED 09:43 | DX: S29.012A Strain of muscle and tendon of back wall of thorax, initial encounter (principal); M62.830 Muscle spasm of back; I10 Essential (primary) hypertension; Z88.5 Allergy status to narcotic agent; Z88.7 Allergy status to serum and vaccine | CPT/HCPCS: 93005; 93010; 99283 ==

== ENCOUNTER 2022-05-01 10:58 | Emergency (ER) | payer MEDICARE, BC ==
[2022-05-01] MEDS ORDERED: Lidocaine 5% 700 MG Patch TRDERM ONE (11:13)
== END 2022-05-01 13:18 | disposition home or self-care (01) ==
LOC: MW.ED 10:58
DX: M25.512 Pain in left shoulder (principal); I10 Essential (primary) hypertension; E78.00 Pure hypercholesterolemia, unspecified; Z88.5 Allergy status to narcotic agent; Z88.7 Allergy status to serum and vaccine
CPT/HCPCS: 72125; 99283; A9270

== ENCOUNTER 2022-12-13 10:25 | Emergency (ER) | payer MEDICARE, BC ==
[2022-12-13] MEDS ORDERED: Penicillin V Potassium 500 MG Tab PO STA (10:45)
== END 2022-12-13 11:17 | disposition home or self-care (01) ==
LOC: MW.ED 10:25
DX: K04.7 Periapical abscess without sinus (principal); K03.81 Cracked tooth; J45.909 Unspecified asthma, uncomplicated; I10 Essential (primary) hypertension; Z88.5 Allergy status to narcotic agent; Z88.7 Allergy status to serum and vaccine
CPT/HCPCS: 99283; A9270-GY

== ENCOUNTER 2023-03-05 12:41 | Emergency (ER) | payer MEDICARE, BC | END 2023-03-05 14:11 | disposition home or self-care (01) | LOC: MW.ED 12:41 | DX: M54.41 Lumbago with sciatica, right side (principal); I10 Essential (primary) hypertension; J45.909 Unspecified asthma, uncomplicated; Z88.5 Allergy status to narcotic agent; Z88.7 Allergy status to serum and vaccine | CPT/HCPCS: 99283 ==